=== PATIENT | female | born 1940 | race Caucasian/White ===

== ENCOUNTER → 2016-10-04 | Outpatient (CLI) | payer MEDICARE ==
[~2016-10-04] MED LIST: ALENDRONATE SOD70 M1 PO; ASPIRIN ADULT L81 M2 PO; AUGMENTIN 875 M1 TAB PO; CARAFATE1 G1 PO; CIPRO500 MG PO; DAYPRO600 M1 PO; DIFLUCAN100 MG PO; HYDROCODONE BIT1 T11 PO; LOPRESSOR25 MG PO; MIRALAX POWDER17 G1 PO; MOTRIN600 MG PO; MOTRIN800 MG PO; NEXIUM40 MG PO; NKHM; OMEPRAZOLE40 MG PO; OYSCO 500 + D 51 TAB PO; PREDNISONE10 MG PO; PRILOSEC20 M1 PO; PROTONIX40 MG PO; QUALITY CHOICE325 MG PO; VICODIN 5/500 505 MG PO; VITAMIN D400 IU PO; XARE20MG PO
== END | disposition home or self-care (01) ==
LOC: US 07:30
DX: M79.604 Pain in right leg (principal); M79.605 Pain in left leg

== ENCOUNTER → 2016-12-08 | Day surgery (SDC) | payer MEDICARE ==
[~2016-12-08] VITALS: Ht 152.4 cm; Wt 52.2 kg
--- NOTE | ~2016-12-08 | O ---
[place], [place] OPERATIVE NOTE NAME: JODY SCHREIBER UNIT #: [id number] ROOM: DOCTOR: RAFAEL ALEMAN MD BIRTHDATE: [birth year] DOS: HISTORY: I am not sure if the previously given history was recorded or not, I am repeating it. The patient was presented with dysphagia, dyspepsia, 76 years old. PAST MEDICAL HISTORY: Hypertension, hypercholesterolemia, gastritis, melanoma. PAST SURGICAL HISTORY: Hysterectomy, appendectomy, melanoma resection. ALLERGIES: IVP DYE. PROCEDURE: Today's procedure part of investigation is panendoscopy plus colon dilation, esophagus plus biopsy. PREMEDICATION: Versed and Diprivan. SCOPE: Olympus forward-viewing gastroscope Q10 video. REPORT: After putting the patient in the left lateral position and after application of lubricant to the scope, the scope was introduced. Thereafter, under direct visualization, I advanced through the length of esophagus without difficulty. Esophagus cervicothoracic distally carefully examined. Gastric pouch was entered evidence of gastritis seen. A 1.5 cm antral ulceration was biopsied and photographed. Duodenal bulb, second and third part within normal limit. Antrum was biopsied for H pylori balloon dilation of esophagus to size 20 was undertaken. Highest resistance at distal and upper esophagus was experienced. The patient tolerated the procedure well. IMPRESSION: Dysphagia, benign esophageal stricture, status post balloon dilation to size 20, gastritis, status post biopsy. 1. Small hiatal hernia 2. Antral ulceration PLAN AND DISCUSSION: Supportive management, soft diet, PPI therapy, omeprazole 20 mg bid. Starting Xarelto and aspirin from tomorrow. Follow up routinely with you in office, p.r.n. visit with us in GI Clinic. Thank you very much indeed for your kind referral. [place], [place] OPERATIVE NOTE NAME: JODY SCHREIBER UNIT #: [id number] ROOM: DOCTOR: RAFAEL ALEMAN MD BIRTHDATE: [birth year] RAFAEL ALEMAN MD CM:OPRECORD:OPERATIVE NOTE [id number] RAFAEL ALEMAN MD 12/08/16 4212 interface
[2016-12-08 12:31] VITALS: BP 115/41
[2016-12-08 12:46] VITALS: BP 135/53
[2016-12-08 13:01] VITALS: BP 132/64
== END | disposition home or self-care (01) ==
LOC: SDC 12-05 08:45
DX: K22.2 Esophageal obstruction (principal); K29.50 Unspecified chronic gastritis without bleeding; K25.9 Gastric ulcer, unspecified as acute or chronic, without hemorrhage or perforation; K44.9 Diaphragmatic hernia without obstruction or gangrene; I10 Essential (primary) hypertension; E78.00 Pure hypercholesterolemia, unspecified; Z90.710 Acquired absence of both cervix and uterus; Z90.49 Acquired absence of other specified parts of digestive tract; K21.9 Gastro-esophageal reflux disease without esophagitis; D64.9 Anemia, unspecified; Z80.9 Family history of malignant neoplasm, unspecified

== ENCOUNTER 2016-12-19 17:42 | Inpatient (IN) | payer MEDICARE ==
[~2016-12-19] VITALS: Ht 152.4 cm; Wt 69.1 kg
--- NOTE | ~2016-12-19 | PR ---
[place], [place] PROGRESS NOTE NAME: JODY SCHREIBER UNIT #: [id number] ROOM: 531 DOCTOR: LYNN DE LA CRUZ MD BIRTHDATE: [birth year] DOS: 12/23/2016 PULMONARY FOLLOWUP SUBJECTIVE: She has had a bronchoscopy done yesterday with significant reduction and improvement in the respiratory symptoms noted including cough. The patient denies symptoms of chest pain or any abdominal pain. Coughing has been currently noted mild at this time, nonproductive. Denies any wheezing. OBJECTIVE: VITAL SIGNS: For the patient, which have been recorded showed normal temperature, respiratory rate 20, heart rate 79, blood pressure 145/54. The pulse oxygen saturation on room air 97% saturation. HEENT: Examination shows no acute change. NECK: Supple. CARDIOVASCULAR: S1, S2 audible. LUNGS: Coarse, no wheeze, no crackles. ABDOMEN: Soft, nontender. LABORATORY DATA: BMP of the patient noted as essentially grossly normal. CBC: WBC count 12.3, hemoglobin 9.0, hematocrit 29.0, platelet count was normal. The culture of the bronchial washing showed normal jen. The Gram stain of the bronchial washing of the patient of yesterday noted with many white blood cells, moderate epithelial cells, moderate gram-negative bacilli, and ____ gram-positive cocci in pairs. IMPRESSION: 1. The patient who has been noted significant improvement noted in the respiratory status with acute exacerbation of bronchial asthma. 2. Resolving acute pneumonia for the patient clinically as well. PLAN OF TREATMENT: No changes in the plan of management at this time. Obtain a chest x-ray of the patient today to reassess the pneumonia. Continue use of bronchodilators. Continue other supportive therapy, plan of management and progress. Further treatment changes will be done based on the progression of the illness. [place], [place] PROGRESS NOTE NAME: JODY SCHREIBER [facility]: [id number] UNIT #: [id number] ROOM: 531 DOCTOR: LYNN DE LA CRUZ MD BIRTHDATE: [birth year] LYNN MACIAS MD CM:PNTRANS 1409 0037 LYNN WEST MD 12/24/16 0037 interface
--- NOTE | ~2016-12-19 | PR ---
[place], [place] PROGRESS NOTE NAME: JODY SCHREIBER UNIT #: [id number] ROOM: 531 DOCTOR: COLLEEN WEST MD,LYNN BIRTHDATE: [birth year] DOS: 12/24/2016 SUBJECTIVE: The patient has been noted comfortable at this time. She continues to show improvement in respiratory symptoms. The coughing has been resolving not completely improved ____ patient after the bronchoscopy. OBJECTIVE: VITAL SIGNS: For the patient which has been recorded shows the temperature of the patient noted as normal. The respiratory rate of the patient recorded as 20, heart rate 68, blood pressure 152/52-149/74. The pulse oxygen saturation noted on room air 96% saturation. HEENT: Examination shows head was atraumatic. Eyes nonicterus. NECK: Supple. CARDIOVASCULAR: S1, S2 audible. LUNGS: The patient was noted without any wheezing or crackles at this time. ABDOMEN: Soft, nontender. LABORATORY DATA: CBC: WBC count 12.8, hemoglobin 9.9, hematocrit 29.9, platelet count 214,000. The culture of the sputum for this patient was noted as normal jen isolation. IMPRESSION: The patient who has been currently noted with resolving acute exacerbation of bronchial asthma. The patient as well as acute pneumonia for this patient and tracheobronchitis progressively. PLAN OF TREATMENT: The patient could be considered discharge for this patient to the home setting with the patient whenever necessary. Chest x-ray yesterday shows hyperinflation of the lung with resolution of previous pulmonary infiltration. Outpatient followup suggested 2 weeks post-discharge. LYNN MACIAS MD CM:PNTRANS [id number] 20 LYNN WEST MD 12/24/162219 interface
--- NOTE | ~2016-12-19 | PROC NOTE ---
[place], [place] PROCEDURE NOTE NAME: JODY SCHREIBER UNIT #: [id number] ROOM: 531 DOCTOR: IOANA PARIKH BIRTHDATE: [birth year] DOS: MODIFIED BARIUM SWALLOW PRIMARY DIAGNOSIS: Chronic obstructive pulmonary disease with acute exacerbation and sepsis. She has a history of bronchitis, GERD, melanoma of the legs. The patient is currently on a regular diet. She was seen for a bedside evaluation, no changes to her diet were made. The patient is reporting globus and difficulties swallowing food and liquids both and consistently with constant cough and choke. She reports she cannot breathe and has had difficulty breathing. The patient reports she had a dilatation of the throat 2 weeks ago and before then, she was having difficulty coughing and choking and has continued to have this issue. She reports a history of 4 dilatations at the throat and when asked about an esophageal stricture, esophageal issues, she denied a history of those diagnoses. METHODS AND PROCEDURES: The patient was on a gurney. She was seated upright 90 degrees with a pillow and viewed in the lateral plane. The study was done in conjunction with Dr. Prince. The patient was able to follow commands and administered thin liquid via straw on cup, pudding mixed with barium paste and take a bite of a turkey sandwich mixed with barium paste on her own. ORAL PHASE: The patient presents with normal mastication and chewing as well as ability to form and propel a cohesive bolus of all consistencies with no oral residue. PHARYNGEAL PHASE: DIAMOND EXPERT judged laryngeal elevation to be slightly decreased, but it did not affect the swallow. She had no residue. She had adequate airway protection. There was no penetration or aspiration noted during this modified barium swallow. RECOMMENDATIONS AND IMPRESSION: The patient tolerates a regular diet. No diet recommendations are made as oral and pharyngeal phases are functional and without penetration aspiration or any pharyngeal residue or oral residue. Speech therapy services are not recommended at this time. Physician continues to report difficulty swallowing and globus and physician may wish to consider esophageal workup as sometimes the patient has issues in the esophagus and feel the globus in their pharynx. Thank you for this referral. [place], [place] PROCEDURE NOTE NAME: JODY SCHREIBER UNIT #: [id number] ROOM: 531 DOCTOR: IOANA PARIKH BIRTHDATE: [birth year] IOANA PARIKH CM:PROCNOTE:PROCEDURE NOTE [id number] IOANA PARIKH
--- NOTE | ~2016-12-19 | PR ---
[place], [place] PROGRESS NOTE NAME: JODY SCHREIBER UNIT #: [id number] ROOM: 531 DOCTOR: COLLEEN WEST MD,LYNN BIRTHDATE: [birth year] DOS: 12/22/2016 SUBJECTIVE: She is n.p.o. past midnight for bronchoscopy, still noted with persistent nonproductive cough. Denies symptoms of chest pain or any abdominal pain. The patient denies any symptoms of hemoptysis. OBJECTIVE: VITAL SIGNS: For the patient which has been recorded showed the temperature of the patient noted as normal, respiratory rate recorded at 20, heart rate 93, blood pressure 117/51. Pulse oxygen saturation noted on 3 liters cannula 95% saturation. HEENT: Examination shows no acute change. NECK: Supple. CARDIOVASCULAR: S1, S2 audible. LUNGS: The patient was noted without any crackles. Expiratory wheezing was present. ABDOMEN: Soft, nontender. LABORATORY DATA: BMP; BUN 14, creatinine was normal. CBC this morning, WBC count 16.3, hemoglobin 9.9, hematocrit 30.8, platelet count 252,000. IMPRESSION: 1. The patient with acute pneumonia with ongoing acute tracheobronchitis and exacerbation of bronchial asthma, noted quite severe. 2. Leukocytosis was also noted. PLAN OF TREATMENT: Proceed with bronchoscopy as planned. No changes in the treatment immediately will be necessary. The leukocytosis has been improving. Continue other supportive therapy, plan of management and care. Usual treatment of the therapies. LYNN MACIAS MD CM:PNTRANS 1111 [id number] LYNN WEST MD 12/22/16 1214 interface
--- NOTE | ~2016-12-19 | PROC NOTE ---
[place], [place] PROCEDURE NOTE NAME: JODY SCHREIBER UNIT #: [id number] ROOM: 531 DOCTOR: COLLEEN WEST MD,LYNN BIRTHDATE: [birth year] DOS: 12/22/2016 PREOPERATIVE DIAGNOSES: Persistent severe nonresolving cough, acute pneumonia, and leukocytosis. POSTOPERATIVE DIAGNOSES: Persistent severe nonresolving cough, acute pneumonia, and leukocytosis. PROCEDURE DESCRIPTION: Informed consent obtained. The patient brought to the OR and placed in supine position. Conscious sedation administered by the Anesthesia Department. After achieving appropriate sedation, airway introduced into the mouth. Bronchoscope advanced into the airway into laryngeal area. Epiglottis and vocal cords were seen. The vocal cords were moving symmetrically with movements. The bronchoscope advanced into the vocal cord and tracheal lumen. Tracheal lumen noted with moderate amount of thick mucus secretion with purulent secretion of mixture. All secretions suctioned out with the patient to the aurelia level. The right upper, right middle, right lower, left upper, lingular lower lobe bronchi were all reviewed. Thick impaction of the mucus plugs noted endobronchial tree bilaterally to moderate amount. The findings were noted much more predominant in the left and the right endobronchial tree. Bronchial washings sent for culture. The procedure well tolerated by the patient without any complications. Postoperative findings were discussed with the patient's daughter. No changes in the treatment at this time immediately will be necessary except reduction of the Solu-Medrol at this time to b.i.d. dosing would be considered. LYNN MACIAS MD CM:PROCNOTE:PROCEDURE NOTE 1114 1239 LYNN WEST MD
--- NOTE | ~2016-12-19 | CON ---
[place], [place] REPORT OF CONSULTATION NAME: JODY SCHREIBER [facility] #: [id number] UNIT #: [id number] ROOM: 531 DOCTOR: LYNN DE LA CRUZ MD BIRTHDATE: [birth year] DOS: 12/21/2016 PULMONARY CONSULTATION, EVALUATION AND MANAGEMENT The consultation was done for the patient for the assessment of the persistent cough with exacerbation of COPD. HISTORY OF PRESENT ILLNESS: This is a 76-year-old white female patient who has been brought to the [facility] and hospitalized on 12/19/2016. The patient had been treated previously in [facility]. The patient was discharged on oral medications. The patient came home and noted with worsening of the cough and other respiratory symptoms. She was admitted in [facility] for further medical management currently due to nonresolving respiratory symptoms. She does have symptoms of cough, which has been noted quite a bit, nonproductive at times. Denies symptoms of pain in the chest. Denies symptoms of hemoptysis. The patient denies symptoms of chest pain, but noted with symptoms of wheezing. The cough has been noted ____ the patient's inability to expectorate sputum. REVIEW OF SYSTEMS: CONSTITUTIONAL: Fatigue and tiredness noted without symptoms of fever or chills. EYES: Denies any burning, redness, or tenderness. EARS, NOSE, AND THROAT: Denies sore throat, hoarseness, otalgia, postnasal drainage, or epistaxis. CARDIOVASCULAR: Denies anginal pain, edema or pain of the lower extremities or palpitations. GASTROINTESTINAL: Denies dysphagia, nausea, vomiting, diarrhea, abdominal pain, hematemesis, melena, hematochezia. GENITOURINARY: Denies dysuria, suprapubic pain, hematuria. SKIN: No lesions or rashes. MUSCULOSKELETAL: No deformities or pain. CENTRAL NERVOUS SYSTEM: Denies dizziness, headache, diplopia, syncopal episodes, or seizures. Remaining systems were reviewed with the patient. They were noted all negative. PREVIOUS MEDICAL HISTORY: 1. Atrial fibrillation. 2. Gastroesophageal reflux. 3. Coronary artery disease. 4. Essential hypertension. 5. Uncomplicated moderate persistent bronchial asthma, known to me with the previous examination in the office. She was seen in the office previously in 08/2016. SOCIAL HISTORY: She was noted nonsmoker, lives at home. She has worked in the [employer] for 25 years. She denies any history of alcohol or any illicit drugs. SURGICAL HISTORY: 1. Complete hysterectomy at the age of [age] years old. [place], [place] REPORT OF CONSULTATION NAME: JODY SCHREIBER UNIT #: [id number] ROOM: 531 DOCTOR: COLLEEN WEST MD,LYNN BIRTHDATE: [birth year] 2. Bladder neck suspension. 3. D and C. 4. Appendectomy. FAMILY HISTORY: Father at 64 due to complication of cancer of the head and neck. The mother at age of 6464 years old from complication related to COPD. CURRENT ADMINISTERED MEDICATIONS: The patient noted use of vitamin B12, Tessalon Perles, Lovenox for DVT prophylaxis, IV Solu-Medrol 40 mg q.8 hours, DuoNeb, IV Rocephin and Zithromax, and other p.r.n. medications administration. DRUG ALLERGY HISTORY: NOTED ALLERGY TO IVP DYE. PHYSICAL EXAMINATION: GENERAL: A 76-year-old female who has been noted currently awake and alert without any acute distress at this time, resting comfortably on the bed, noted nonproductive cough. Height of 5 feet, weight of 152 pounds. BMI 29. VITAL SIGNS: For this patient which were recorded show the temperature was noted as 102.2 degrees Fahrenheit to normal temperature later on, respiratory rate of 14-22, heart rate 96-105, blood pressure 125/59-132/68. Pulse oxygen saturation of the patient was noted as 94% on 2 L nasal cannula. HEENT: Examination shows head was atraumatic. Eyes: No icterus. NECK: Supple. Oral mucosa moist. CARDIOVASCULAR: S1, S2 audible. LUNGS: The patient was noted without any wheezing or crackles at this time. Breaths are noted mildly decreased bilaterally. ABDOMEN: Soft, nontender. LABORATORY DATA: CBC of the patient on 12/20/2016 showed hemoglobin of 10.9, hematocrit 34.1, platelet count was normal, and WBC count was normal. The PT, PTT on 12/20/2016 was normal. CK-MB, troponin of patient on admission on noted all normal. Lactic acid on 12/19/2016 on admission was normal. Blood culture from 12/19/2016 showed no bacterial growth. Urine culture showed no bacterial growth. CMP for this patient yesterday was noted with glucose 132, normal BUN and creatinine, and other electrolytes grossly normal. Chest x-ray of the patient that was done on current admission on 12/19/2016; the patient was noted without any acute pulmonary infiltration or other abnormalities. CT scan of the chest for the patient was done in the Emergency Room on 12/19/2016, was noted with 5 mm calcified granuloma of the left upper lung with a small 2-3 mm subpleural pulmonary nodule noted in the right middle lobe. IMPRESSION: 1. The patient has been currently noted with ongoing acute exacerbation of bronchial asthma with acute tracheobronchitis, suspected mucus impaction and not improved at this time with the previous recent hospitalization with recurrence of the symptoms. 2. Incidental finding of a 2-3 mm granuloma in subpleural location, right middle lobe, significance unknown. 3. Isolated granuloma was also noted in the left lung as well. 4. History of essential hypertension, coronary artery disease, and atrial [place], [place] REPORT OF CONSULTATION NAME: JODY SCHREIBER UNIT #: [id number] ROOM: 531 DOCTOR: LYNN DE LA CRUZ MD BIRTHDATE: [birth year] fibrillation. PLAN OF TREATMENT: The patient will benefit from therapeutic bronchoscopy to help resolve the current symptoms and also to accurately assess ____ for bronchitis that might require any modification of the treatment. Continue current dose of steroids, bronchodilators, and other plan as previously. Usual care. Risk and benefits of procedure have been discussed with the patient, and she agreed for the procedure. It was scheduled to be done tomorrow morning. N.p.o. past midnight status will be achieved from midnight tonight. Thanks for allowing me to participate in the care of this patient. LYNN MACIAS MD CM:CONSTR:REPORT OF CONSULTATION 1305 12/21/16 7100 interface
[2016-12-19 17:56] VITALS: BP 162/50
[2016-12-19 18:00] VITALS: BP 162/53
[2016-12-19] MEDS ORDERED: LEVOFLOXACIN500 MG PO (18:01)
[2016-12-19 18:44] LABS: BASO # 0.1 10*3/uL (0.0-0.1); BASO % 0.5 % (0.0-1.0); EOS # 0.3 10*3/uL (0.0-0.4); EOS % 3.5 % (1.0-4.0); HEMATOCRIT 35.4 % (37.0-47.0); HEMOGLOBIN 11.5 g/dl (12.0-16.0); LYMPH # 1.5 10*3/uL (1.3-4.4); LYMPH % 15.9 % (27.0-41.0); MEAN CELL VOLUME 87.4 fl (81.0-99.0); MEAN CORPUSCULAR HGB 28.4 pg (27.0-31.0); MEAN CORPUSCULAR HGB CONC 32.5 g/dl (33.0-37.0); MEAN PLATELET VOLUME 9.2 fl (9.6-12.3); MONO # 1.2 10*3/uL (0.1-1.0); MONO % 12.3 % (3.0-9.0); NEUT # 6.4 10*3/uL (2.3-7.9); NEUT % 67.5 % (47.0-73.0); PLATELET COUNT AUTOMATED 261 10*3/uL (130-400); RED BLOOD COUNT 4.05 10*6/uL (4.10-5.10); RED CELL DISTRI WIDTH 14.4 % (0-14.5); WHITE BLOOD COUNT 9.5 10*3/uL (4.8-10.8)
[2016-12-19 19:01] LABS: ALBUMIN 3.7 gm/dl (3.1-4.5); ALKALINE PHOSPHATASE 88 U/L (45-117); BILIRUBIN, TOTAL 0.6 mg/dl (0.2-1.0); BUN 11 mg/dl (7-24); CARBON DIOXIDE 23 mmol/L (21-32); CHLORIDE 103 mmol/L (98-107); EST GLOM FILT AFRICAN AMERICAN > 60 ml/min; GLUCOSE 96 mg/dL (65-99); MAGNESIUM 2.3 mg/dL (1.5-2.1); POTASSIUM 3.9 mmol/L (3.5-5.1); SGOT/AST 18 IU/L (3-35); SGPT/ALT 14 U/L (12-78); SODIUM 139 mmol/L (136-145); TOTAL PROTEIN 7.5 gm/dL (6.4-8.2)
[2016-12-19 19:07] LABS: INTERNATIONAL NORM RATIO 1.1 (2.0-3.5); PROTHROMBIN TIME 11.8 SECONDS (9.0-12.4)
[2016-12-19 19:09] LABS: TROPONIN I < 0.015 ng/ml (<0.045)
[2016-12-19 20:00] VITALS: BP 125/59
[2016-12-19 21:18] VITALS: BP 125/59
[2016-12-20] VITALS (9 sets, daily range): BP systolic 118–154; BP diastolic 49–84
[2016-12-20 00:54] LABS: BILIRUBIN 1+ (NEGATIVE); BLOOD 2+ (NEGATIVE); CLARITY CLEAR (CLEAR); COLOR YELLOW (YELLOW); GLUCOSE NEGATIVE (NEGATIVE); KETONE 3+ (NEGATIVE); LEUKO ESTERASE NEGATIVE (NEGATIVE); NITRITE NEGATIVE (NEGATIVE); PH 5.5 (5.0-9.0); PROTEIN TRACE (NEGATIVE); SPECIFIC GRAVITY 1.025 (1.005-1.030); UROBILINOGEN 0.2 E.U./dl (0.2-1.0)
[2016-12-20 01:23] LABS: BACTERIA TRACE; URINE REFLEX COMMENT YES (NO)
[2016-12-20 06:13] LABS: BASO % 0.1 % (0.0-1.0); EOS % 0.1 % (1.0-4.0); HEMATOCRIT 34.1 % (37.0-47.0); HEMOGLOBIN 10.9 g/dl (12.0-16.0); LYMPH # 1.2 10*3/uL (1.3-4.4); LYMPH % 17.5 % (27.0-41.0); MEAN CELL VOLUME 88.8 fl (81.0-99.0); MEAN CORPUSCULAR HGB 28.4 pg (27.0-31.0); MEAN PLATELET VOLUME 9.3 fl (9.6-12.3); MONO # 0.1 10*3/uL (0.1-1.0); MONO % 0.7 % (3.0-9.0); NEUT # 5.5 10*3/uL (2.3-7.9); PLATELET COUNT AUTOMATED 274 10*3/uL (130-400); RED BLOOD COUNT 3.84 10*6/uL (4.10-5.10); RED CELL DISTRI WIDTH 14.3 % (0-14.5); WHITE BLOOD COUNT 6.8 10*3/uL (4.8-10.8)
[2016-12-20 06:33] LABS: HEMOGLOBIN A1c 5.5 % (4.8-5.6); INTERNATIONAL NORM RATIO 1.1 (2.0-3.5); PROTHROMBIN TIME 11.4 SECONDS (9.0-12.4)
[2016-12-20 06:48] LABS: ALBUMIN 3.3 gm/dl (3.1-4.5); ALKALINE PHOSPHATASE 78 U/L (45-117); BILIRUBIN, TOTAL 0.5 mg/dl (0.2-1.0); BUN 14 mg/dl (7-24); CARBON DIOXIDE 26 mmol/L (21-32); CHLORIDE 105 mmol/L (98-107); CHOLESTEROL 160 mg/dL (<200); EST GLOM FILT AFRICAN AMERICAN > 60 ml/min; GLUCOSE 132 mg/dL (65-99); HDL CHOLESTEROL 66 mg/dl (40-60); LDL CHOLESTEROL 76 mg/dL (9-159); MAGNESIUM 2.3 mg/dL (1.5-2.1); PHOSPHOROUS 3.5 mg/dL (2.5-4.9); POTASSIUM 4.1 mmol/L (3.5-5.1); SGOT/AST 12 IU/L (3-35); SGPT/ALT 12 U/L (12-78); SODIUM 140 mmol/L (136-145); TOTAL PROTEIN 6.8 gm/dL (6.4-8.2); TRIGLYCERIDES 92 mg/dl (<150); VLDL CHOLESTEROL 18 mg/dL (6-40)
[2016-12-20 06:52] LABS: THYROID STIM HORMONE (HS) 0.394 uIU/ml (0.358-4.75)
[2016-12-20 07:08] LABS: VITAMIN D, 25-HYDROXY 30.1 ng/mL (30-100)
[2016-12-20 07:11] LABS: FOLIC ACID > 24.00 ng/mL (>5.38)
[2016-12-21] VITALS: BP 132/68
[2016-12-21 04:00] VITALS: BP 129/61
[2016-12-21 08:00] VITALS: BP 125/58
[2016-12-21 12:00] VITALS: BP 125/58
[2016-12-21 16:00] VITALS: BP 123/43
[2016-12-21 20:00] VITALS: BP 120/69
[2016-12-22] VITALS (8 sets, daily range): BP systolic 90–156; BP diastolic 39–128
[2016-12-22 07:03] LABS: BASO % 0.1 % (0.0-1.0); HEMATOCRIT 30.8 % (37.0-47.0); HEMOGLOBIN 9.9 g/dl (12.0-16.0); IG # 0.2 10*3/uL (0.0-0.1); LYMPH # 1.1 10*3/uL (1.3-4.4); LYMPH % 6.8 % (27.0-41.0); MEAN CELL VOLUME 90.1 fl (81.0-99.0); MEAN CORPUSCULAR HGB 28.9 pg (27.0-31.0); MEAN CORPUSCULAR HGB CONC 32.1 g/dl (33.0-37.0); MEAN PLATELET VOLUME 9.8 fl (9.6-12.3); MONO # 0.4 10*3/uL (0.1-1.0); MONO % 2.4 % (3.0-9.0); NEUT # 14.6 10*3/uL (2.3-7.9); NEUT % 89.5 % (47.0-73.0); PLATELET COUNT AUTOMATED 252 10*3/uL (130-400); RED BLOOD COUNT 3.42 10*6/uL (4.10-5.10); RED CELL DISTRI WIDTH 14.6 % (0-14.5); WHITE BLOOD COUNT 16.3 10*3/uL (4.8-10.8)
[2016-12-22 07:08] LABS: BUN 14 mg/dl (7-24); CARBON DIOXIDE 24 mmol/L (21-32); CHLORIDE 109 mmol/L (98-107); EST GLOM FILT AFRICAN AMERICAN > 60 ml/min; GLUCOSE 138 mg/dL (65-99); POTASSIUM 3.8 mmol/L (3.5-5.1); SODIUM 143 mmol/L (136-145)
[2016-12-23] VITALS: BP 139/48
[2016-12-23 04:00] VITALS: BP 128/74
[2016-12-23 07:17] LABS: BASO % 0.1 % (0.0-1.0); IG # 0.2 10*3/uL (0.0-0.1); LYMPH # 1.4 10*3/uL (1.3-4.4); MEAN CELL VOLUME 89.5 fl (81.0-99.0); MEAN CORPUSCULAR HGB 27.8 pg (27.0-31.0); MEAN PLATELET VOLUME 10.3 fl (9.6-12.3); MONO # 0.6 10*3/uL (0.1-1.0); NEUT # 10.2 10*3/uL (2.3-7.9); NEUT % 82.7 % (47.0-73.0); PLATELET COUNT AUTOMATED 192 10*3/uL (130-400); RED BLOOD COUNT 3.24 10*6/uL (4.10-5.10); RED CELL DISTRI WIDTH 14.6 % (0-14.5); WHITE BLOOD COUNT 12.3 10*3/uL (4.8-10.8)
[2016-12-23 07:24] LABS: BUN 12 mg/dl (7-24); CARBON DIOXIDE 23 mmol/L (21-32); CHLORIDE 110 mmol/L (98-107); EST GLOM FILT AFRICAN AMERICAN > 60 ml/min; GLUCOSE 113 mg/dL (65-99); POTASSIUM 3.8 mmol/L (3.5-5.1); SODIUM 141 mmol/L (136-145)
[2016-12-23 08:00] VITALS: BP 145/62
[2016-12-23 11:46] VITALS: BP 145/54
[2016-12-23 15:05] LABS: ACID FAST SPEC PROCESSING Concentration (.)
[2016-12-23 16:00] VITALS: BP 154/53
[2016-12-23 20:00] VITALS: BP 152/52
[2016-12-24] VITALS: BP 149/74
[2016-12-24 06:00] LABS: BASO % 0.1 % (0.0-1.0); HEMATOCRIT 29.9 % (37.0-47.0); HEMOGLOBIN 9.9 g/dl (12.0-16.0); IG # 0.3 10*3/uL (0.0-0.1); LYMPH # 1.8 10*3/uL (1.3-4.4); LYMPH % 14.1 % (27.0-41.0); MEAN CELL VOLUME 86.7 fl (81.0-99.0); MEAN CORPUSCULAR HGB 28.7 pg (27.0-31.0); MEAN CORPUSCULAR HGB CONC 33.1 g/dl (33.0-37.0); MEAN PLATELET VOLUME 10.1 fl (9.6-12.3); MONO # 0.8 10*3/uL (0.1-1.0); MONO % 6.2 % (3.0-9.0); NEUT # 9.9 10*3/uL (2.3-7.9); NEUT % 77.5 % (47.0-73.0); PLATELET COUNT AUTOMATED 214 10*3/uL (130-400); RED BLOOD COUNT 3.45 10*6/uL (4.10-5.10); RED CELL DISTRI WIDTH 14.3 % (0-14.5); WHITE BLOOD COUNT 12.8 10*3/uL (4.8-10.8)
[2016-12-24 08:00] VITALS: BP 152/52
[2016-12-24] MEDS ORDERED: MUCINEX ER600 MG PO (10:02)
[2016-12-24] MEDS ORDERED: B12,B-12,B 12500 MC1 PO (10:02)
[2016-12-24] MEDS ORDERED: ROBITUSSIN DM 110 ML PO (11:17)
[2016-12-24] MEDS ORDERED: AVPAK AZITHROM250 MG PO (11:18)
[2016-12-24] MEDS ORDERED: PREDNISONE10 MG PO (12:11)
== END 2016-12-24 13:07 | disposition home or self-care (01) | DRG 871 ==
LOC: ED 17:42 → EDHOLD 20:07 → 5E 20:07
PROVIDERS: Emergency Medicine; Family Medicine; Hospitalist; Internal Medicine Critical Care Medicine; Registered Nurse; Student in an Organized Health Care Education/Training Program
PROC: 0BC68ZZ Extirpation of Matter from Right Lower Lobe Bronchus, Via Natural or Artificial Opening Endoscopic (ICD-10-PCS; principal; 2016-12-22)
PROC: BD1BYZZ Fluoroscopy of Mouth/Oropharynx using Other Contrast (ICD-10-PCS; principal; 2016-12-22)
PROC: 0BC98ZZ Extirpation of Matter from Lingula Bronchus, Via Natural or Artificial Opening Endoscopic (ICD-10-PCS; principal; 2016-12-22)
PROC: 0BC48ZZ Extirpation of Matter from Right Upper Lobe Bronchus, Via Natural or Artificial Opening Endoscopic (ICD-10-PCS; principal; 2016-12-22)
PROC: 0BC88ZZ Extirpation of Matter from Left Upper Lobe Bronchus, Via Natural or Artificial Opening Endoscopic (ICD-10-PCS; principal; 2016-12-22)
PROC: 0BC58ZZ Extirpation of Matter from Right Middle Lobe Bronchus, Via Natural or Artificial Opening Endoscopic (ICD-10-PCS; principal; 2016-12-22)
DX: A41.9 Sepsis, unspecified organism (principal); J18.9 Pneumonia, unspecified organism; J96.00 Acute respiratory failure, unspecified whether with hypoxia or hypercapnia; J44.0 Chronic obstructive pulmonary disease with (acute) lower respiratory infection; T17.890A Other foreign object in other parts of respiratory tract causing asphyxiation, initial encounter; J45.901 Unspecified asthma with (acute) exacerbation; I48.1 Persistent atrial fibrillation; J44.1 Chronic obstructive pulmonary disease with (acute) exacerbation; D64.9 Anemia, unspecified; E83.41 Hypermagnesemia; X58.XXXA Exposure to other specified factors, initial encounter; K21.9 Gastro-esophageal reflux disease without esophagitis; I25.10 Atherosclerotic heart disease of native coronary artery without angina pectoris; R91.1 Solitary pulmonary nodule; M81.0 Age-related osteoporosis without current pathological fracture; Z85.828 Personal history of other malignant neoplasm of skin; Z87.01 Personal history of pneumonia (recurrent); Z90.49 Acquired absence of other specified parts of digestive tract; Z90.710 Acquired absence of both cervix and uterus; Z80.0 Family history of malignant neoplasm of digestive organs; Z83.6 Family history of other diseases of the respiratory system; Z91.041 Radiographic dye allergy status; Z79.82 Long term (current) use of aspirin; Z79.899 Other long term (current) drug therapy; Y93.89 Activity, other specified; Y92.89 Other specified places as the place of occurrence of the external cause; Y99.8 Other external cause status

== ENCOUNTER 2016-12-28 13:03 | Inpatient (IN) | payer MEDICARE ==
[~2016-12-28] VITALS: Ht 152.4 cm; Wt 66.3 kg
--- NOTE | ~2016-12-28 | PR ---
[place], [place] PROGRESS NOTE NAME: JODY SCHREBIER UNIT #: [id number] ROOM: 503 DOCTOR: LYNN DE LA CRUZ MD BIRTHDATE: [birth year] DOS: 12/31/2016 PULMONARY FOLLOWUP SUBJECTIVE: She has been noted quite comfortable at this time. Continues to show reduction in improvement in general weakness and fatigue. Denies symptoms of chest pain or any abdominal pain. The patient has not been noted any significant cough. OBJECTIVE: VITAL SIGNS: Showed normal temperature, respirations 18, heart rate of 86, blood pressure 98/70-131/62. Pulse oxygen saturation of the patient was noted as 99% saturation on 2 L nasal cannula. HEENT: Examination shows no acute change. NECK: Supple. CARDIOVASCULAR: S1, S2 audible. LUNGS: Without wheeze or crackles. ABDOMEN: Soft, nontender. LABORATORY DATA: CBC: WBC count 16.6, hemoglobin 8.8, hematocrit 27.8, platelet count was normal. CMP of 12/31/2016, normal BUN and creatinine. Blood culture showed no bacterial growth on the . IMPRESSION: 1. The patient with continued improvement in acute exacerbation of chronic obstructive pulmonary disease, leukocytosis, acute bronchitis. 2. Debility and fatigue. 3. Electrolyte imbalance, which is already being corrected by the primary care attending. PLAN OF TREATMENT: Reduce the Solu-Medrol dose to 20 mg daily. Continuation of other previous therapy, plan of management. After 3 days, the Solu-Medrol will be completely discontinued. Other supportive therapy, plan of management. Continue physical therapy and other medical management, plan of care. [place], [place] PROGRESS NOTE NAME: JODY SCHREIBER UNIT #: [id number] ROOM: 503 DOCTOR: LYNN DE LA CRUZ MD BIRTHDATE: [birth year] LYNN MACIAS MD CM:PNTRANS 1120 005 LYNN WEST MD 01/01/17 0051 interface
--- NOTE | ~2016-12-28 | PR ---
[place], [place] PROGRESS NOTE NAME: JODY SCHREIBER UNIT #: [id number] ROOM: 503 DOCTOR: LYNN DE LA CRUZ MD BIRTHDATE: [birth year] DOS: 12/30/2016 SUBJECTIVE: She has been comfortably resting this morning on the chair noted with improvement in the fatigue and tiredness. She has been ordered physical therapy yesterday. The coughing for this patient has been noted mild at this time. There were no symptoms of chest pain or any abdominal pain. OBJECTIVE: VITAL SIGNS: Normal temperature, respiratory rate 16, heart rate 81, blood pressure 126/48. The pulse oxygen saturation for the patient noted on 2 liters nasal cannula 97% saturation. HEENT: Examination shows no acute change. NECK: Supple. CARDIOVASCULAR: S1, S2 audible. LUNGS: Noted without any wheeze or crackles at this time. ABDOMEN: Soft, nontender. LABORATORY DATA: CBC of the patient on 12/30/2016, WBC count 19.5, hemoglobin 8.3, hematocrit 25.9, and platelet count 211,000. CMP of the patient this morning noted normal BUN and creatinine. Potassium noted 3.0 and phosphorus noted 1.7. Urine culture of the patient shows light growth of gram-positive cocci. Blood culture for patient on 12/28/2016 showed no bacterial growth. IMPRESSION: 1. The patient with ____ general weakness, fatigue, and debility with resolving acute exacerbation of chronic obstructive pulmonary disease as well. 2. Leukocytosis, combination of factors including acute infection and the steroids as well. 3. Hypokalemia and hypophosphatemia resulting in the generalized weakness as well. PLAN OF TREATMENT: Continue current dose of Solu-Medrol and bronchodilators. Discontinue the Zosyn and vancomycin since there were no cultures supporting that use. Continuation of the bronchodilators. Physical therapy and occupation therapy, [facility] facility assessment and the transfer would be recommended for the management of the current ongoing other medical problems as well. Usual care. Supportive therapy, plan of management and treatment. [place], [place] PROGRESS NOTE NAME: JODY SCHREIBER UNIT #: [id number] ROOM: 503 DOCTOR: LYNN DE LA CRUZ MD BIRTHDATE: [birth year] LYNN MACIAS MD CM:LEONARD 1424 [id number] LYNN WEST MD 12/31/16 0630 interface
--- NOTE | ~2016-12-28 | CON ---
[place], [place] REPORT OF CONSULTATION NAME: JODY SCHREIBER [facility] #: [id number] UNIT #: [id number] ROOM: 503 DOCTOR: LYNN DE LA CRUZ MD BIRTHDATE: [birth year] DOS: 12/28/2016 PULMONARY CONSULTATION, EVALUATION AND MANAGEMENT REASON FOR CONSULTATION: To assess the patient for symptoms of shortness of breath and generalized weakness. CONSULTATION REQUESTED BY: Hospitalist services. HISTORY OF PRESENT ILLNESS: A 76-year-old white female who has been recently admitted to the hospital and treated during the last hospitalization visit for the medical management of acute pneumonia, tracheobronchitis and exacerbation of bronchial asthma. The patient has been doing very well. The chest x-ray of the patient shows complete resolution of the previously noted infiltration in the lungs. She was discharged home on antibiotics and the bronchodilators and other medical treatment ordered by the attending physician at that time. She has been brought to the hospital. The patient has been noted with generalized weakness and fatigue. She has been noted with difficulty ambulation because of fatigue. She was also noted with decreased appetite. The patient denies having any worsening of the cough as previously noted, cough has been noted very minimal with small amount of sputum expectoration. Denies symptoms of wheezing. Denies symptoms of chest pain. The patient denies symptoms of hemoptysis. The patient was complaining of nonspecific pain in the left side of the chest intermittently as well. REVIEW OF SYSTEMS: CONSTITUTIONAL: General weakness and fatigue were noted without any fever or chills reported. She was also noted with decrease in appetite. EYES: Denies any burning, redness, or tenderness. EARS, NOSE, THROAT: No sore throat, hoarseness, otalgia, postnasal drainage. CARDIOVASCULAR: Denies anginal pain, edema or pain of the lower extremities. GASTROINTESTINAL: Denies dysphagia, nausea, vomiting, diarrhea, abdominal pain, hematemesis, melena, or hematochezia. MUSCULOSKELETAL: The patient denies any acute joint pain, redness or tenderness of any joints. SKIN: Denies lesions or rashes. CENTRAL NERVOUS SYSTEM: Generalized weakness and fatigue were noted without any focal neurologic deficit. The remaining systems were reviewed with this patient and they were noted all negative. PAST MEDICAL HISTORY: 1. Noted for this patient with recent hospitalization and discharge last Sunday for the exacerbation of bronchial asthma with acute pneumonia. No bacterial growth isolation noted with bronchoscopy that was done on 12/22/2016. 2. History of uncomplicated moderate persistent bronchial asthma. 3. History of coronary artery disease. 4. Atrial fibrillation. 5. Gastroesophageal reflux. 6. Coronary artery disease. [place], [place] REPORT OF CONSULTATION NAME: JODY SCHREIBER UNIT #: [id number] ROOM: [facility] DOCTOR: LYNN DE LA CRUZ MD BIRTHDATE: [birth year] 7. Essential hypertension. PAST SURGICAL HISTORY: 1. Complete hysterectomy at age [age] years old. 2. Bladder neck suspension. 3. D and C. 4. Appendectomy. 5. Fiberoptic bronchoscopy that was done on 12/22/2016. SOCIAL HISTORY: The patient lives at home. Denies any history of alcohol use or illicit drug use, noted nonsmoker lifetime. FAMILY HISTORY: Father at age 6464 years old from cancer of the head and neck. Mother at 64 years old with complication related to COPD. MEDICATIONS: Current administered medications noted use of Fosamax, potassium chloride, vitamin B12, Xarelto, aspirin, calcium with vitamin D, vitamin D, ferrous sulfate, omeprazole, IV Solu-Medrol 60 mg q.8 hours, Mucinex 600 mg p.o. b.i.d., DuoNeb, Levaquin, vancomycin and IV Zosyn. DRUG ALLERGIES: Allergies to IVP DYE causing shortness of breath. PHYSICAL EXAMINATION: GENERAL: A 76-year-old white female, currently lying in the bed without any acute distress, appeared to be somewhat fatigued. Height of the patient noted as 5 feet, weight of 146 pounds, BMI 28.5. VITAL SIGNS: Normal temperature, respiratory rate 18, heart rate of 79, blood pressure 131/41 to 111/67. Her pulse oxygen saturation noted on room air as 97% saturation. HEENT: Shows no acute change. NECK: Supple. CARDIOVASCULAR: S1, S2 audible. LUNGS: The patient was noted without any wheezing or crackles. Breaths are noted [id number] diminished bilaterally. ABDOMEN: Soft, flat, nontender, bowel sounds present. EXTREMITIES: Show no edema, clubbing, cyanosis. CENTRAL NERVOUS SYSTEM: Noted without any gross focal deficit. Cranial nerves 2-12 are intact. MUSCULOSKELETAL: No deformities. SKIN: Showed no lesions or rashes. LABORATORY DATA: Lactic acid yesterday on admission was 1.7. CMP on 12/28/2016 shows glucose of 134, BUN and creatinine was normal, and potassium 3.0. CBC: WBC count 24.1, hemoglobin 11.3, hematocrit of 34.5, platelet count of 302,000. CK-MB and troponin, 3 sets yesterday and this morning, were noted normal. Urinalysis: Noted 3+ bacteria on admission on 12/28/2016. CBC this morning, WBC count 20.4, hemoglobin 9.5, hematocrit 29.1, platelet count 265,000. CMP: BUN and creatinine was normal. Potassium improved to 3.2. Phosphorous was noted 2.1, magnesium 2.3. Chest x-ray that was done, 1-view, for this patient just in the Emergency Room shows area of a small linear atelectasis noted in the [place], [place] REPORT OF CONSULTATION NAME: JODY SCHREIBER UNIT #: [id number] ROOM: [facility] DOCTOR: COLLEEN WEST MD,[facility] BIRTHDATE: [birth year] left lower lobe. IMPRESSION: 1. The patient was admitted to the hospital with general weakness, fatigue and with some shortness breath and cough with a clear sputum expectoration at this time. Basilar area of atelectasis noted in the left lower lobe. 2. Abnormal urinalysis. The patient possibly has urinary tract infection would be considered. 3. Resolving chronic obstructive pulmonary disease exacerbation as well. 4. General weakness related to the current acute infectious process most likely originating from the urine would be considered. PLAN OF TREATMENT: The patient has been started on broad-spectrum intravenous antibiotics until the infection will be assessed with the blood cultures. Urine culture needs to be done if it is not taken. Start the patient on lower dose of Solu-Medrol as the patient does not have any findings of acute exacerbation of COPD at this time. She will be changed to Solu-Medrol 40 mg daily from 60 mg q.8 hours. Collect any sputum for Gram stain and culture, which will be ordered for this patient as well. Monitor results of urine cultures and blood cultures. Further treatment changes will be done based on progression of the illness. Physical therapy assessment might need to be done. Thanks for allowing me to participate in the care of this patient. LYNN MACIAS MD CM:CONSTR:REPORT OF CONSULTATION 1142 12/29/16 1731 interface
--- NOTE | ~2016-12-28 | PR ---
[place], [place] PROGRESS NOTE NAME: JODY SCHREIBER UNIT #: [id number] ROOM: 503 DOCTOR: COLLEEN WEST MD,LYNN BIRTHDATE: [birth year] DOS: 01/01/2017 SUBJECTIVE: She has been noted with generalized weakness and fatigue. There were no symptoms of cough. Shortness of breath was noted, mild. There was no chest pain. OBJECTIVE: VITAL SIGNS: For the patient which has been recorded shows a normal temperature, respiratory rate recorded at 18, heart rate 74, blood pressure 135/47 to 115/42. Intake for the patient ____, negative 1250 mL. Pulse oxygen 2 liters nasal cannula 99% saturation. HEENT: Examination shows no acute change. NECK: Supple. CARDIOVASCULAR: S1, S2 audible. LUNGS: Noted without any wheezing or crackles at the present time. ABDOMEN: Soft, nontender. LABORATORY DATA: CBC of this morning, WBC count 17.4, hemoglobin 9.5, hematocrit 29.5, platelet count 231,000. CMP of the patient of 01/01/2017 shows normal BUN and creatinine. IMPRESSION: 1. The patient with general weakness and fatigue with electrolyte imbalance, which has been improving. 2. Resolving acute exacerbation of chronic obstructive pulmonary disease. 3. Acute leukocytosis, most likely drug induced by the steroids. PLAN OF TREATMENT: No changes from the pulmonary standpoint. Continue the patient on current therapy as previously ordered. Usual care ____. Supportive therapy and plan of management. The patient has been currently considered for transfer to the residential facility upon authorization from the insurance. LYNN MACIAS MD CM:PNTRANS [id number] LYNN WEST MD 01/01/17 1543 interface
[~2016-12-28 13:03] MED LIST changes: +AVPAK AZITHROM250 MG PO; +B12,B-12,B 12500 MC1 PO; +LEVOFLOXACIN500 MG PO; +MUCINEX ER600 MG PO; +ROBITUSSIN DM 110 ML PO
[2016-12-28 13:15] VITALS: BP 151/38
[2016-12-28 14:02] LABS: HEMATOCRIT 34.5 % (37.0-47.0); HEMOGLOBIN 11.3 g/dl (12.0-16.0); MEAN CORPUSCULAR HGB 28.2 pg (27.0-31.0); MEAN CORPUSCULAR HGB CONC 32.8 g/dl (33.0-37.0); MEAN PLATELET VOLUME 9.4 fl (9.6-12.3); PLATELET COUNT AUTOMATED 302 10*3/uL (130-400); RED BLOOD COUNT 4.01 10*6/uL (4.10-5.10); RED CELL DISTRI WIDTH 14.8 % (0-14.5); WHITE BLOOD COUNT 24.1 10*3/uL (4.8-10.8)
[2016-12-28 14:21] LABS: ALBUMIN 3.4 gm/dl (3.1-4.5); ALKALINE PHOSPHATASE 72 U/L (45-117); BUN 17 mg/dl (7-24); CARBON DIOXIDE 27 mmol/L (21-32); CHLORIDE 101 mmol/L (98-107); EST GLOM FILT AFRICAN AMERICAN > 60 ml/min; GLUCOSE 134 mg/dL (65-99); SGOT/AST 13 IU/L (3-35); SGPT/ALT 15 U/L (12-78); SODIUM 140 mmol/L (136-145); TOTAL PROTEIN 6.6 gm/dL (6.4-8.2)
[2016-12-28 14:26] LABS: LYMPHOCYTE # 0.7 10*3/uL (1.3-4.4); MONOCYTE # 0.7 10*3/uL (0.1-1.0); NEUTROPHIL # 22.7 10*3/uL (2.3-7.9); NEUTROPHILS 94 % (47-73); PLATELET SUFFICIENCY NORMAL (NORMAL); POLYCHROMASIA SLIGHT; TOTAL CELLS COUNTED 100 #CELLS
[2016-12-28 15:04] VITALS: BP 147/54
[2016-12-28 16:00] VITALS: BP 129/42
[2016-12-28 20:00] VITALS: BP 111/67
[2016-12-29] VITALS: BP 100/50
[2016-12-29 02:30] LABS: BILIRUBIN NEGATIVE (NEGATIVE); BLOOD TRACE-LYSED (NEGATIVE); CLARITY SL CLOUDY (CLEAR); COLOR YELLOW (YELLOW); GLUCOSE NEGATIVE (NEGATIVE); KETONE 1+ (NEGATIVE); LEUKO ESTERASE NEGATIVE (NEGATIVE); NITRITE NEGATIVE (NEGATIVE); PH 6.5 (5.0-9.0); PROTEIN NEGATIVE (NEGATIVE); SPECIFIC GRAVITY 1.015 (1.005-1.030); UROBILINOGEN 0.2 E.U./dl (0.2-1.0)
[2016-12-29 02:39] LABS: BACTERIA 3+; URINE REFLEX COMMENT YES (NO)
[2016-12-29 07:01] LABS: BASO % 0.1 % (0.0-1.0); HEMATOCRIT 29.1 % (37.0-47.0); HEMOGLOBIN 9.5 g/dl (12.0-16.0); IG # 0.3 10*3/uL (0.0-0.1); LYMPH # 1.1 10*3/uL (1.3-4.4); LYMPH % 5.2 % (27.0-41.0); MEAN CELL VOLUME 86.9 fl (81.0-99.0); MEAN CORPUSCULAR HGB 28.4 pg (27.0-31.0); MEAN CORPUSCULAR HGB CONC 32.6 g/dl (33.0-37.0); MEAN PLATELET VOLUME 9.8 fl (9.6-12.3); MONO # 0.7 10*3/uL (0.1-1.0); MONO % 3.3 % (3.0-9.0); NEUT # 18.3 10*3/uL (2.3-7.9); NEUT % 89.9 % (47.0-73.0); PLATELET COUNT AUTOMATED 265 10*3/uL (130-400); RED BLOOD COUNT 3.35 10*6/uL (4.10-5.10); RED CELL DISTRI WIDTH 15.2 % (0-14.5); WHITE BLOOD COUNT 20.4 10*3/uL (4.8-10.8)
[2016-12-29 07:31] LABS: ALKALINE PHOSPHATASE 58 U/L (45-117); BILIRUBIN, TOTAL 0.9 mg/dl (0.2-1.0); BUN 13 mg/dl (7-24); CARBON DIOXIDE 25 mmol/L (21-32); CHLORIDE 105 mmol/L (98-107); EST GLOM FILT AFRICAN AMERICAN > 60 ml/min; GLUCOSE 133 mg/dL (65-99); MAGNESIUM 2.3 mg/dL (1.5-2.1); PHOSPHOROUS 2.1 mg/dL (2.5-4.9); POTASSIUM 3.2 mmol/L (3.5-5.1); SGOT/AST 7 IU/L (3-35); SGPT/ALT 13 U/L (12-78); SODIUM 143 mmol/L (136-145); TOTAL PROTEIN 5.8 gm/dL (6.4-8.2)
[2016-12-29 08:00] VITALS: BP 131/41
[2016-12-29 12:00] VITALS: BP 116/58
[2016-12-29 16:00] VITALS: BP 122/52
[2016-12-29 20:00] VITALS: BP 119/45
[2016-12-30] VITALS: BP 115/44
[2016-12-30 06:23] LABS: BASO % 0.1 % (0.0-1.0); EOS % 0.1 % (1.0-4.0); HEMATOCRIT 25.9 % (37.0-47.0); HEMOGLOBIN 8.3 g/dl (12.0-16.0); IG # 0.2 10*3/uL (0.0-0.1); LYMPH # 2.6 10*3/uL (1.3-4.4); LYMPH % 13.2 % (27.0-41.0); MEAN CORPUSCULAR HGB 28.5 pg (27.0-31.0); MEAN PLATELET VOLUME 10.1 fl (9.6-12.3); MONO # 1.5 10*3/uL (0.1-1.0); MONO % 7.7 % (3.0-9.0); NEUT # 15.2 10*3/uL (2.3-7.9); PLATELET COUNT AUTOMATED 211 10*3/uL (130-400); RED BLOOD COUNT 2.91 10*6/uL (4.10-5.10); RED CELL DISTRI WIDTH 15.5 % (0-14.5); WHITE BLOOD COUNT 19.5 10*3/uL (4.8-10.8)
[2016-12-30 06:56] LABS: CHLORIDE 110 mmol/L (98-107); SODIUM 143 mmol/L (136-145)
[2016-12-30 07:02] LABS: ALBUMIN 2.4 gm/dl (3.1-4.5); ALKALINE PHOSPHATASE 45 U/L (45-117); BILIRUBIN, TOTAL 0.7 mg/dl (0.2-1.0); BUN 11 mg/dl (7-24); CARBON DIOXIDE 24 mmol/L (21-32); EST GLOM FILT AFRICAN AMERICAN > 60 ml/min; GLUCOSE 89 mg/dL (65-99); MAGNESIUM 2.2 mg/dL (1.5-2.1); PHOSPHOROUS 1.7 mg/dL (2.5-4.9); SGOT/AST 8 IU/L (3-35); SGPT/ALT 11 U/L (12-78); TOTAL PROTEIN 4.8 gm/dL (6.4-8.2)
[2016-12-30 08:00] VITALS: BP 124/50
[2016-12-30 12:00] VITALS: BP 126/48
[2016-12-30 16:00] VITALS: BP 114/52
[2016-12-30 20:00] VITALS: BP 125/41
[2016-12-31] VITALS: BP 131/62
[2016-12-31 05:54] LABS: BASO % 0.1 % (0.0-1.0); EOS % 0.1 % (1.0-4.0); HEMATOCRIT 27.8 % (37.0-47.0); HEMOGLOBIN 8.8 g/dl (12.0-16.0); IG # 0.1 10*3/uL (0.0-0.1); LYMPH # 2.2 10*3/uL (1.3-4.4); LYMPH % 13.5 % (27.0-41.0); MEAN CORPUSCULAR HGB 28.5 pg (27.0-31.0); MEAN CORPUSCULAR HGB CONC 31.7 g/dl (33.0-37.0); MEAN PLATELET VOLUME 9.9 fl (9.6-12.3); MONO # 1.1 10*3/uL (0.1-1.0); MONO % 6.4 % (3.0-9.0); NEUT # 13.1 10*3/uL (2.3-7.9); NEUT % 79.1 % (47.0-73.0); PLATELET COUNT AUTOMATED 231 10*3/uL (130-400); RED BLOOD COUNT 3.09 10*6/uL (4.10-5.10); RED CELL DISTRI WIDTH 15.8 % (0-14.5); WHITE BLOOD COUNT 16.6 10*3/uL (4.8-10.8)
[2016-12-31 06:05] LABS: ALBUMIN 2.7 gm/dl (3.1-4.5); ALKALINE PHOSPHATASE 51 U/L (45-117); BILIRUBIN, TOTAL 0.6 mg/dl (0.2-1.0); BUN 9 mg/dl (7-24); CARBON DIOXIDE 26 mmol/L (21-32); CHLORIDE 109 mmol/L (98-107); EST GLOM FILT AFRICAN AMERICAN > 60 ml/min; GLUCOSE 100 mg/dL (65-99); MAGNESIUM 2.2 mg/dL (1.5-2.1); PHOSPHOROUS 2.3 mg/dL (2.5-4.9); POTASSIUM 3.5 mmol/L (3.5-5.1); SGOT/AST 8 IU/L (3-35); SGPT/ALT 13 U/L (12-78); SODIUM 144 mmol/L (136-145); TOTAL PROTEIN 5.2 gm/dL (6.4-8.2)
[2016-12-31 08:00] VITALS: BP 98/70
[2016-12-31 12:00] VITALS: BP 124/58
[2016-12-31 16:00] VITALS: BP 122/60
[2016-12-31 20:00] VITALS: BP 123/52
[2017-01-01] VITALS: BP 115/42
[2017-01-01 06:54] LABS: BASO % 0.1 % (0.0-1.0); EOS % 0.1 % (1.0-4.0); HEMATOCRIT 29.5 % (37.0-47.0); HEMOGLOBIN 9.5 g/dl (12.0-16.0); IG # 0.2 10*3/uL (0.0-0.1); LYMPH # 2.6 10*3/uL (1.3-4.4); LYMPH % 15.1 % (27.0-41.0); MEAN CELL VOLUME 89.4 fl (81.0-99.0); MEAN CORPUSCULAR HGB 28.8 pg (27.0-31.0); MEAN CORPUSCULAR HGB CONC 32.2 g/dl (33.0-37.0); MEAN PLATELET VOLUME 9.9 fl (9.6-12.3); MONO # 0.9 10*3/uL (0.1-1.0); MONO % 5.4 % (3.0-9.0); NEUT # 13.6 10*3/uL (2.3-7.9); NEUT % 78.2 % (47.0-73.0); PLATELET COUNT AUTOMATED 231 10*3/uL (130-400); RED CELL DISTRI WIDTH 15.9 % (0-14.5); WHITE BLOOD COUNT 17.4 10*3/uL (4.8-10.8)
[2017-01-01 07:10] LABS: ALBUMIN 2.8 gm/dl (3.1-4.5); ALKALINE PHOSPHATASE 56 U/L (45-117); BILIRUBIN, TOTAL 0.9 mg/dl (0.2-1.0); BUN 12 mg/dl (7-24); CARBON DIOXIDE 25 mmol/L (21-32); CHLORIDE 106 mmol/L (98-107); EST GLOM FILT AFRICAN AMERICAN > 60 ml/min; GLUCOSE 92 mg/dL (65-99); MAGNESIUM 2.2 mg/dL (1.5-2.1); POTASSIUM 3.4 mmol/L (3.5-5.1); SGOT/AST 12 IU/L (3-35); SGPT/ALT 15 U/L (12-78); SODIUM 141 mmol/L (136-145); TOTAL PROTEIN 5.7 gm/dL (6.4-8.2)
[2017-01-01 08:00] VITALS: BP 135/47
[2017-01-01 12:00] VITALS: BP 149/43
[2017-01-01 16:00] VITALS: BP 143/48
[2017-01-01 20:00] VITALS: BP 144/56
[2017-01-02] VITALS: BP 130/49
[2017-01-02 08:00] VITALS: BP 125/42
[2017-01-02 12:00] VITALS: BP 136/48
[2017-01-02 16:00] VITALS: BP 111/60
[2017-01-02 20:00] VITALS: BP 128/55
[2017-01-03] VITALS: BP 119/48
[2017-01-03 04:00] VITALS: BP 120/44
[2017-01-03 06:09] LABS: BUN 12 mg/dl (7-24); CARBON DIOXIDE 30 mmol/L (21-32); CHLORIDE 102 mmol/L (98-107); EST GLOM FILT AFRICAN AMERICAN > 60 ml/min; GLUCOSE 85 mg/dL (65-99); POTASSIUM 3.5 mmol/L (3.5-5.1); SODIUM 140 mmol/L (136-145)
[2017-01-03 06:19] LABS: BASO % 0.1 % (0.0-1.0); EOS # 0.1 10*3/uL (0.0-0.4); EOS % 0.4 % (1.0-4.0); HEMOGLOBIN 9.3 g/dl (12.0-16.0); IG # 0.2 10*3/uL (0.0-0.1); LYMPH # 2.7 10*3/uL (1.3-4.4); LYMPH % 16.7 % (27.0-41.0); MEAN CELL VOLUME 90.1 fl (81.0-99.0); MEAN CORPUSCULAR HGB 28.9 pg (27.0-31.0); MEAN CORPUSCULAR HGB CONC 32.1 g/dl (33.0-37.0); MEAN PLATELET VOLUME 9.9 fl (9.6-12.3); MONO # 0.9 10*3/uL (0.1-1.0); MONO % 5.5 % (3.0-9.0); NEUT # 12.3 10*3/uL (2.3-7.9); NEUT % 76.3 % (47.0-73.0); PLATELET COUNT AUTOMATED 244 10*3/uL (130-400); RED BLOOD COUNT 3.22 10*6/uL (4.10-5.10); RED CELL DISTRI WIDTH 16.3 % (0-14.5); WHITE BLOOD COUNT 16.1 10*3/uL (4.8-10.8)
[2017-01-03 08:00] VITALS: BP 116/42; BP 122/58
[2017-01-03] MEDS ORDERED: LEVAQUIN750 M1 PO (10:28)
[2017-01-03 12:00] VITALS: BP 110/46
== END 2017-01-03 13:28 | disposition other institution (70) | DRG 871 ==
LOC: ED 13:03 → EDHOLD 15:06 → 5E 15:06
PROVIDERS: Emergency Medicine; Hospitalist; Registered Nurse; Student in an Organized Health Care Education/Training Program
DX: A41.9 Sepsis, unspecified organism (principal); J18.9 Pneumonia, unspecified organism; C43.9 Malignant melanoma of skin, unspecified; D64.9 Anemia, unspecified; I48.2 Chronic atrial fibrillation; J44.0 Chronic obstructive pulmonary disease with (acute) lower respiratory infection; E83.39 Other disorders of phosphorus metabolism; J44.1 Chronic obstructive pulmonary disease with (acute) exacerbation; M81.0 Age-related osteoporosis without current pathological fracture; R91.1 Solitary pulmonary nodule; E87.6 Hypokalemia; T38.0X5A Adverse effect of glucocorticoids and synthetic analogues, initial encounter; J20.9 Acute bronchitis, unspecified; Z90.710 Acquired absence of both cervix and uterus; Z90.49 Acquired absence of other specified parts of digestive tract; Z80.8 Family history of malignant neoplasm of other organs or systems; Z82.5 Family history of asthma and other chronic lower respiratory diseases; Z91.041 Radiographic dye allergy status; Z79.82 Long term (current) use of aspirin; Z79.899 Other long term (current) drug therapy; Y92.89 Other specified places as the place of occurrence of the external cause

== ENCOUNTER 2017-01-23 13:27 | Inpatient (IN) | payer MEDICARE ==
[~2017-01-23] VITALS: Ht 152.4 cm; Wt 62.9 kg
[~2017-01-23 13:27] MED LIST changes: +LEVAQUIN750 M1 PO
[2017-01-23 13:44] VITALS: BP 150/57
[2017-01-23 13:56] VITALS: BP 150/57
[2017-01-23 14:09] LABS: BASO # 0.1 10*3/uL (0.0-0.1); BASO % 0.8 % (0.0-1.0); EOS # 0.3 10*3/uL (0.0-0.4); EOS % 3.7 % (1.0-4.0); HEMATOCRIT 35.6 % (37.0-47.0); HEMOGLOBIN 11.2 g/dl (12.0-16.0); LYMPH # 1.7 10*3/uL (1.3-4.4); LYMPH % 23.6 % (27.0-41.0); MEAN CORPUSCULAR HGB 28.9 pg (27.0-31.0); MEAN CORPUSCULAR HGB CONC 31.5 g/dl (33.0-37.0); MEAN PLATELET VOLUME 8.9 fl (9.6-12.3); MONO # 0.7 10*3/uL (0.1-1.0); MONO % 9.4 % (3.0-9.0); NEUT # 4.6 10*3/uL (2.3-7.9); NEUT % 62.1 % (47.0-73.0); PLATELET COUNT AUTOMATED 359 10*3/uL (130-400); RED BLOOD COUNT 3.87 10*6/uL (4.10-5.10); RED CELL DISTRI WIDTH 17.8 % (0-14.5); WHITE BLOOD COUNT 7.4 10*3/uL (4.8-10.8)
[2017-01-23 14:18] LABS: INTERNATIONAL NORM RATIO 1.1 (2.0-3.5); PROTHROMBIN TIME 11.8 SECONDS (9.0-12.4)
[2017-01-23 14:27] LABS: ALBUMIN 3.4 gm/dl (3.1-4.5); ALKALINE PHOSPHATASE 92 U/L (45-117); BILIRUBIN, TOTAL 0.6 mg/dl (0.2-1.0); BUN 7 mg/dl (7-24); CARBON DIOXIDE 23 mmol/L (21-32); CHLORIDE 109 mmol/L (98-107); EST GLOM FILT AFRICAN AMERICAN > 60 ml/min; GLUCOSE 91 mg/dL (65-99); MAGNESIUM 2.1 mg/dL (1.5-2.1); POTASSIUM 3.5 mmol/L (3.5-5.1); SGOT/AST 22 IU/L (3-35); SGPT/ALT 21 U/L (12-78); SODIUM 142 mmol/L (136-145); TOTAL PROTEIN 6.9 gm/dL (6.4-8.2); TROPONIN I < 0.015 ng/ml (<0.045)
[2017-01-23 16:12] LABS: BILIRUBIN 1+ (NEGATIVE); BLOOD 2+ (NEGATIVE); CLARITY CLOUDY (CLEAR); COLOR YELLOW (YELLOW); GLUCOSE NEGATIVE (NEGATIVE); KETONE 2+ (NEGATIVE); LEUKO ESTERASE 1+ (NEGATIVE); NITRITE POSITIVE (NEGATIVE); PH 5.5 (5.0-9.0); PROTEIN TRACE (NEGATIVE); SPECIFIC GRAVITY >= 1.030 (1.005-1.030)
[2017-01-23 16:30] LABS: BACTERIA 4+; MUCOUS TRACE; URINE REFLEX COMMENT YES (NO); WBC TNTC wbc/hpf (0-5)
[2017-01-23 17:10] VITALS: BP 139/68
[2017-01-23 17:30] VITALS: BP 124/57; BP 126/57
[2017-01-23 20:00] VITALS: BP 130/59
[2017-01-24] VITALS: BP 135/53
[2017-01-24 06:40] LABS: BASO # 0.1 10*3/uL (0.0-0.1); EOS # 0.3 10*3/uL (0.0-0.4); EOS % 5.3 % (1.0-4.0); HEMATOCRIT 30.6 % (37.0-47.0); HEMOGLOBIN 9.6 g/dl (12.0-16.0); LYMPH # 1.1 10*3/uL (1.3-4.4); LYMPH % 22.4 % (27.0-41.0); MEAN CELL VOLUME 93.3 fl (81.0-99.0); MEAN CORPUSCULAR HGB 29.3 pg (27.0-31.0); MEAN CORPUSCULAR HGB CONC 31.4 g/dl (33.0-37.0); MEAN PLATELET VOLUME 8.6 fl (9.6-12.3); MONO # 0.5 10*3/uL (0.1-1.0); MONO % 9.9 % (3.0-9.0); PLATELET COUNT AUTOMATED 275 10*3/uL (130-400); RED BLOOD COUNT 3.28 10*6/uL (4.10-5.10); RED CELL DISTRI WIDTH 17.9 % (0-14.5)
[2017-01-24 07:05] LABS: ALBUMIN 2.6 gm/dl (3.1-4.5); ALKALINE PHOSPHATASE 74 U/L (45-117); BILIRUBIN, TOTAL 0.5 mg/dl (0.2-1.0); BUN 3 mg/dl (7-24); CARBON DIOXIDE 22 mmol/L (21-32); CHLORIDE 115 mmol/L (98-107); EST GLOM FILT AFRICAN AMERICAN > 60 ml/min; GLUCOSE 81 mg/dL (65-99); POTASSIUM 3.4 mmol/L (3.5-5.1); SGOT/AST 14 IU/L (3-35); SGPT/ALT 15 U/L (12-78); SODIUM 145 mmol/L (136-145); TOTAL PROTEIN 5.5 gm/dL (6.4-8.2)
[2017-01-24 08:00] VITALS: BP 129/50
[2017-01-24 12:00] VITALS: BP 117/49
[2017-01-24 16:00] VITALS: BP 118/47
[2017-01-24 20:00] VITALS: BP 110/40
[2017-01-25] VITALS: BP 112/52
[2017-01-25 07:12] LABS: BASO # 0.1 10*3/uL (0.0-0.1); BASO % 1.1 % (0.0-1.0); EOS # 0.3 10*3/uL (0.0-0.4); EOS % 4.7 % (1.0-4.0); HEMATOCRIT 31.6 % (37.0-47.0); LYMPH # 1.2 10*3/uL (1.3-4.4); LYMPH % 21.5 % (27.0-41.0); MEAN CELL VOLUME 93.5 fl (81.0-99.0); MEAN CORPUSCULAR HGB 29.6 pg (27.0-31.0); MEAN CORPUSCULAR HGB CONC 31.6 g/dl (33.0-37.0); MONO # 0.6 10*3/uL (0.1-1.0); NEUT # 3.4 10*3/uL (2.3-7.9); NEUT % 62.3 % (47.0-73.0); PLATELET COUNT AUTOMATED 304 10*3/uL (130-400); RED BLOOD COUNT 3.38 10*6/uL (4.10-5.10); RED CELL DISTRI WIDTH 18.2 % (0-14.5); WHITE BLOOD COUNT 5.5 10*3/uL (4.8-10.8)
[2017-01-25 07:37] LABS: CARBON DIOXIDE 22 mmol/L (21-32); CHLORIDE 114 mmol/L (98-107); EST GLOM FILT AFRICAN AMERICAN > 60 ml/min; GLUCOSE 81 mg/dL (65-99); POTASSIUM 3.3 mmol/L (3.5-5.1); SODIUM 146 mmol/L (136-145)
[2017-01-25 07:38] LABS: BUN < 1 mg/dl (7-24)
[2017-01-25 08:00] VITALS: BP 130/47
[2017-01-25] MEDS ORDERED: METOPROLOL TART50 M1 PO (10:50)
[2017-01-25] MEDS ORDERED: BACTRIM DS 8001 TA1 PO (10:52)
== END 2017-01-25 12:18 | disposition home health service (06) | DRG 872 ==
LOC: ED 13:27 → 4E 16:42 → EDHOLD 16:42 → 4E 17:08
PROVIDERS: Emergency Medicine; Hospitalist; Physician Assistant
DX: A41.9 Sepsis, unspecified organism (principal); E44.0 Moderate protein-calorie malnutrition; J44.9 Chronic obstructive pulmonary disease, unspecified; I48.0 Paroxysmal atrial fibrillation; E83.39 Other disorders of phosphorus metabolism; I48.2 Chronic atrial fibrillation; N30.01 Acute cystitis with hematuria; D64.9 Anemia, unspecified; C44.91 Basal cell carcinoma of skin, unspecified; R07.89 Other chest pain; Z91.041 Radiographic dye allergy status; Z79.01 Long term (current) use of anticoagulants; Z90.710 Acquired absence of both cervix and uterus; Z80.8 Family history of malignant neoplasm of other organs or systems; M81.0 Age-related osteoporosis without current pathological fracture; R07.9 Chest pain, unspecified; E87.6 Hypokalemia; Z68.27 Body mass index [BMI] 27.0-27.9, adult

== ENCOUNTER 2017-02-02 17:04 | Inpatient (IN) | payer MEDICARE ==
[~2017-02-02] VITALS: Ht 152.4 cm; Wt 62.1 kg
[~2017-02-02 17:04] MED LIST changes: -AMITRIPTYLINE25 MG PO
[2017-02-02 17:45] VITALS: BP 122/60
[2017-02-02 20:00] VITALS: BP 121/68
[2017-02-03] VITALS: BP 102/49
[2017-02-03 04:42] VITALS: BP 102/39
[2017-02-03 05:57] LABS: BASO # 0.1 10*3/uL (0.0-0.1); BASO % 0.4 % (0.0-1.0); EOS % 0.2 % (1.0-4.0); HEMATOCRIT 39.4 % (37.0-47.0); HEMOGLOBIN 12.1 g/dl (12.0-16.0); IG # 0.1 10*3/uL (0.0-0.1); LYMPH # 2.1 10*3/uL (1.3-4.4); LYMPH % 12.7 % (27.0-41.0); MEAN CELL VOLUME 94.5 fl (81.0-99.0); MEAN CORPUSCULAR HGB CONC 30.7 g/dl (33.0-37.0); MONO # 0.6 10*3/uL (0.1-1.0); MONO % 3.8 % (3.0-9.0); NEUT # 13.4 10*3/uL (2.3-7.9); NEUT % 82.5 % (47.0-73.0); PLATELET COUNT AUTOMATED 353 10*3/uL (130-400); RED BLOOD COUNT 4.17 10*6/uL (4.10-5.10); RED CELL DISTRI WIDTH 16.8 % (0-14.5); WHITE BLOOD COUNT 16.2 10*3/uL (4.8-10.8)
[2017-02-03 06:05] LABS: ALBUMIN 3.3 gm/dl (3.1-4.5); BILIRUBIN, TOTAL 0.7 mg/dl (0.2-1.0); BUN 11 mg/dl (7-24); CARBON DIOXIDE 16 mmol/L (21-32); CHLORIDE 110 mmol/L (98-107); EST GLOM FILT AFRICAN AMERICAN > 60 ml/min; GLUCOSE 194 mg/dL (65-99); PHOSPHOROUS 2.7 mg/dL (2.5-4.9); POTASSIUM 4.7 mmol/L (3.5-5.1); SGOT/AST 28 IU/L (3-35); SGPT/ALT 15 U/L (12-78); SODIUM 139 mmol/L (136-145); TOTAL PROTEIN 6.8 gm/dL (6.4-8.2)
[2017-02-03 06:29] LABS: ALKALINE PHOSPHATASE 74 U/L (45-117)
[2017-02-03 08:00] VITALS: BP 120/42
[2017-02-03 12:00] VITALS: BP 104/41
[2017-02-03 16:00] VITALS: BP 129/43
[2017-02-03 16:16] LABS: BILIRUBIN 1+ (NEGATIVE); BLOOD NEGATIVE (NEGATIVE); CLARITY SL CLOUDY (CLEAR); COLOR YELLOW (YELLOW); GLUCOSE NEGATIVE (NEGATIVE); KETONE 3+ (NEGATIVE); LEUKO ESTERASE NEGATIVE (NEGATIVE); NITRITE NEGATIVE (NEGATIVE); PROTEIN TRACE (NEGATIVE); SPECIFIC GRAVITY >= 1.030 (1.005-1.030); UROBILINOGEN 0.2 E.U./dl (0.2-1.0)
[2017-02-03 16:25] LABS: BACTERIA TRACE
[2017-02-03 20:00] VITALS: BP 104/41
[2017-02-04] VITALS: BP 115/40
[2017-02-04 06:51] LABS: BASO # 0.1 10*3/uL (0.0-0.1); BASO % 1.3 % (0.0-1.0); EOS # 0.2 10*3/uL (0.0-0.4); EOS % 2.8 % (1.0-4.0); HEMATOCRIT 37.1 % (37.0-47.0); HEMOGLOBIN 11.9 g/dl (12.0-16.0); LYMPH # 1.7 10*3/uL (1.3-4.4); LYMPH % 21.4 % (27.0-41.0); MEAN CELL VOLUME 92.3 fl (81.0-99.0); MEAN CORPUSCULAR HGB 29.6 pg (27.0-31.0); MEAN CORPUSCULAR HGB CONC 32.1 g/dl (33.0-37.0); MEAN PLATELET VOLUME 9.6 fl (9.6-12.3); MONO # 0.8 10*3/uL (0.1-1.0); MONO % 10.2 % (3.0-9.0); NEUT # 5.1 10*3/uL (2.3-7.9); NEUT % 63.9 % (47.0-73.0); PLATELET COUNT AUTOMATED 345 10*3/uL (130-400); RED BLOOD COUNT 4.02 10*6/uL (4.10-5.10); RED CELL DISTRI WIDTH 17.3 % (0-14.5)
[2017-02-04 07:19] LABS: ALBUMIN 3.3 gm/dl (3.1-4.5); ALKALINE PHOSPHATASE 72 U/L (45-117); BILIRUBIN, TOTAL 0.4 mg/dl (0.2-1.0); BUN 14 mg/dl (7-24); CARBON DIOXIDE 24 mmol/L (21-32); CHLORIDE 109 mmol/L (98-107); EST GLOM FILT AFRICAN AMERICAN > 60 ml/min; GLUCOSE 93 mg/dL (65-99); MAGNESIUM 2.1 mg/dL (1.5-2.1); PHOSPHOROUS 1.8 mg/dL (2.5-4.9); POTASSIUM 3.4 mmol/L (3.5-5.1); SGOT/AST 14 IU/L (3-35); SGPT/ALT 15 U/L (12-78); SODIUM 144 mmol/L (136-145); TOTAL PROTEIN 6.7 gm/dL (6.4-8.2)
[2017-02-04 08:00] VITALS: BP 128/48
[2017-02-04 12:00] VITALS: BP 130/44
[2017-02-04 16:00] VITALS: BP 126/47
[2017-02-04 20:00] VITALS: BP 102/50
[2017-02-05] VITALS: BP 120/47
[2017-02-05 08:00] VITALS: BP 117/42
[2017-02-05] MEDS ORDERED: AMITRIPTYLINE25 MG PO (11:59)
[2017-02-05] MEDS ORDERED: OMEPRAZOLE40 MG PO (11:59)
[2017-02-05 12:00] VITALS: BP 116/53
[2017-02-05 16:00] VITALS: BP 118/58
== END 2017-02-05 16:12 | disposition home health service (06) | DRG 392 ==
LOC: 4E 17:04
PROVIDERS: Internal Medicine
DX: R13.10 Dysphagia, unspecified (principal); E44.0 Moderate protein-calorie malnutrition; I48.91 Unspecified atrial fibrillation; E87.8 Other disorders of electrolyte and fluid balance, not elsewhere classified; D64.9 Anemia, unspecified; C44.91 Basal cell carcinoma of skin, unspecified; K21.9 Gastro-esophageal reflux disease without esophagitis; M81.0 Age-related osteoporosis without current pathological fracture; R73.9 Hyperglycemia, unspecified; Z85.820 Personal history of malignant melanoma of skin; Z87.440 Personal history of urinary (tract) infections; Z90.49 Acquired absence of other specified parts of digestive tract; Z90.710 Acquired absence of both cervix and uterus; Z80.8 Family history of malignant neoplasm of other organs or systems; Z83.6 Family history of other diseases of the respiratory system; Z91.041 Radiographic dye allergy status; Z79.82 Long term (current) use of aspirin; Z79.01 Long term (current) use of anticoagulants; Z79.899 Other long term (current) drug therapy; Z68.26 Body mass index [BMI] 26.0-26.9, adult

== ENCOUNTER → 2017-02-02 | Day surgery (SDC) | payer MEDICARE ==
[~2017-02-02] VITALS: Ht 152.4 cm; Wt 675.9 kg
[~2017-02-02] MED LIST changes: +AMITRIPTYLINE25 MG PO; +BACTRIM DS 8001 TA1 PO; +METOPROLOL TART50 M1 PO
--- NOTE | ~2017-02-02 | O ---
[place], [place] OPERATIVE NOTE [id number] UNIT #: [id number] ROOM: [facility] [birth year] DOS: HISTORY OF PRESENT ILLNESS: The patient is 76-year-old presenting with total dysphagia. The patient has been repeatedly dilated In the past with dilation last for about 2 weeks and then she becomes dysphagic again, unable to eat or drink and this has become a point of protein malnutrition as well as weight loss and dehydration and also patient has history of choking on the food. Previous radiologic studies have been also done. ALLERGIES: IODINE. FAMILY HISTORY: Noncontributory. 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 PAST MEDICAL HISTORY: Atrial fibrillation, hypotension history. PROCEDURE: Today's procedure part of investigation is panendoscopy plus balloon dilation of esophagus plus percutaneous endoscopic gastrostomy plus biopsy of antral ulcer. PREMEDICATION: Versed and Diprivan. SCOPE: Olympus forward-viewing gastroscope Q10 video. REPORT: After putting the patient in the left supine position, scope was introduced; thereafter, under direct visualization, advanced through the length of esophagus into gastric pouch. As I approached the antrum, 0.8 cm ulcerations in the antrum was noticed, photographed, margin of which was biopsied. Duodenal patency assured. At this stage, anterior abdominal wall aseptically prepped, 2 mL of Xylocaine in best transillumination line which is subxiphoid left leaning was chosen, Xylocaine injected. Trocar was introduced in the same spot. Guidewire was advanced, grasped and orally extracted. At this stage, a gastrostomy tube Irish 20 was anchored to the wire, orally pulled and recovered from the surface of the abdomen. Anchors placed, patency checked. At this stage, a balloon size 20 was introduced inside the gastric pouch and swept along the esophagus. I did not see any stricture of significance in the esophagus. The patient extubated, tolerated procedure well. IMPRESSION: Dysphagia, status post percutaneous endoscopic gastrostomy, antral ulcers, status post biopsy, history of esophageal stricture, status post balloon redilation status post previous modified barium swallow with normal results. PLAN AND DISCUSSION: At this stage, the patient would be admitted for the next day or to the hospital service for assuring that she is hydrated and she is taught how to use the PEG tube and stabilization. The patient is going to be also kept off the Xarelto and aspirin understanding she has history of atrial fibrillation, but this can be addressed next day or two with both medications. [place], [place] OPERATIVE NOTE NAME: JODY SCHREIBER UNIT #: [id number] ROOM: DOCTOR: LOVE CERVANTES,RAFAEL BIRTHDATE: [birth year] We are going to start Osmolite 1.2 at bolus fashion feeding 1 can 4 times per day for now and hydration is going to be free water at 200 mL every 4 hours average and then juices and oral intake is going to be liberated. The patient is to followup with Dr. Gar. Thank you very much indeed. RAFAEL ALEMAN MD CM:OPRECORD:OPERATIVE NOTE [id number] [facility] RAFAEL ALEMAN MD 02/02/17 1735 interface
[2017-02-02 14:28] VITALS: BP 130/43
[2017-02-02 16:00] VITALS: BP 122/40
[2017-02-02 16:15] VITALS: BP 127/47
[2017-02-02 16:30] VITALS: BP 127/47
== END | disposition home or self-care (01) ==
LOC: SDC 02-01 12:30
DX: K25.9 Gastric ulcer, unspecified as acute or chronic, without hemorrhage or perforation (principal); R13.10 Dysphagia, unspecified; Z90.710 Acquired absence of both cervix and uterus; Z88.8 Allergy status to other drugs, medicaments and biological substances; Z85.828 Personal history of other malignant neoplasm of skin; Z85.820 Personal history of malignant melanoma of skin; I48.91 Unspecified atrial fibrillation; K21.9 Gastro-esophageal reflux disease without esophagitis; J44.9 Chronic obstructive pulmonary disease, unspecified; D64.9 Anemia, unspecified; Z87.01 Personal history of pneumonia (recurrent); Z80.9 Family history of malignant neoplasm, unspecified; Z82.5 Family history of asthma and other chronic lower respiratory diseases; K29.50 Unspecified chronic gastritis without bleeding

== ENCOUNTER → 2017-02-16 | Outpatient (CLI) | payer MEDICARE ==
[~2017-02-16] MED LIST changes: +AMITRIPTYLINE25 MG PO
[2017-02-16 09:50] LABS: BASO % 0.3 % (0.0-1.0); EOS # 0.4 10*3/uL (0.0-0.4); EOS % 3.7 % (1.0-4.0); HEMATOCRIT 37.4 % (37.0-47.0); HEMOGLOBIN 12.1 g/dl (12.0-16.0); LYMPH # 1.1 10*3/uL (1.3-4.4); LYMPH % 10.7 % (27.0-41.0); MEAN CORPUSCULAR HGB 29.4 pg (27.0-31.0); MEAN CORPUSCULAR HGB CONC 32.4 g/dl (33.0-37.0); MEAN PLATELET VOLUME 9.7 fl (9.6-12.3); MONO % 9.7 % (3.0-9.0); NEUT # 7.5 10*3/uL (2.3-7.9); NEUT % 75.3 % (47.0-73.0); PLATELET COUNT AUTOMATED 269 10*3/uL (130-400); RED BLOOD COUNT 4.11 10*6/uL (4.10-5.10); RED CELL DISTRI WIDTH 16.7 % (0-14.5); WHITE BLOOD COUNT 9.9 10*3/uL (4.8-10.8)
[2017-02-16 10:12] LABS: ALBUMIN 3.5 gm/dl (3.1-4.5); ALKALINE PHOSPHATASE 70 U/L (45-117); BILIRUBIN, TOTAL 0.6 mg/dl (0.2-1.0); BUN 9 mg/dl (7-24); CARBON DIOXIDE 23 mmol/L (21-32); CHLORIDE 100 mmol/L (98-107); EST GLOM FILT AFRICAN AMERICAN > 60 ml/min; GLUCOSE 101 mg/dL (65-99); IRON 49 ug/dL (50-170); IRON SATURATION 14 %; POTASSIUM 4.4 mmol/L (3.5-5.1); SGOT/AST 16 IU/L (3-35); SGPT/ALT 14 U/L (12-78); SODIUM 131 mmol/L (136-145); UIBC 293 ug/dL (110-365)
[2017-02-16 13:01] LABS: FERRITIN 43.2 ng/mL (10.0-291.0)
[2017-02-16 13:02] LABS: FOLIC ACID 11.46 ng/mL (>5.38)
== END | disposition home or self-care (01) ==
LOC: LAB 09:32
PROVIDERS: Internal Medicine
DX: D64.9 Anemia, unspecified (principal); I73.9 Peripheral vascular disease, unspecified; R10.9 Unspecified abdominal pain

== ENCOUNTER → 2017-04-16 | Outpatient (CLI) | payer MEDICARE ==
[2017-04-16 09:24] LABS: BASO # 0.1 10*3/uL (0.0-0.1); BASO % 1.1 % (0.0-1.0); EOS # 0.3 10*3/uL (0.0-0.4); EOS % 3.1 % (1.0-4.0); HEMATOCRIT 36.8 % (37.0-47.0); LYMPH # 2.3 10*3/uL (1.3-4.4); LYMPH % 25.3 % (27.0-41.0); MEAN CELL VOLUME 90.4 fl (81.0-99.0); MEAN CORPUSCULAR HGB 29.5 pg (27.0-31.0); MEAN CORPUSCULAR HGB CONC 32.6 g/dl (33.0-37.0); MEAN PLATELET VOLUME 9.5 fl (9.6-12.3); MONO # 0.7 10*3/uL (0.1-1.0); MONO % 7.6 % (3.0-9.0); NEUT # 5.6 10*3/uL (2.3-7.9); NEUT % 62.7 % (47.0-73.0); PLATELET COUNT AUTOMATED 290 10*3/uL (130-400); RED BLOOD COUNT 4.07 10*6/uL (4.10-5.10); RED CELL DISTRI WIDTH 13.9 % (0-14.5)
[2017-04-16 09:50] LABS: ALBUMIN 3.5 gm/dl (3.1-4.5); ALKALINE PHOSPHATASE 91 U/L (45-117); BUN 11 mg/dl (7-24); CHLORIDE 106 mmol/L (98-107); CREATININE 0.73 mg/dL (0.55-1.02); POTASSIUM 4.2 mmol/L (3.5-5.1); SGOT/AST 18 IU/L (3-35); SGPT/ALT 15 U/L (12-78); SODIUM 141 mmol/L (136-145); TOTAL PROTEIN 7.1 gm/dL (6.4-8.2)
== END | disposition home or self-care (01) ==
LOC: LAB 09:08
PROVIDERS: Internal Medicine
DX: D64.9 Anemia, unspecified (principal)

== ENCOUNTER → 2017-05-24 | Outpatient (CLI) | payer MEDICARE ==
[2017-05-24 12:18] LABS: IRON 92 ug/dL (50-170); TOTAL IRON BINDING CAPACITY 376 ug/dl (250-450)
[2017-05-24 12:25] LABS: HEMATOCRIT 34.9 % (37.0-47.0); HEMOGLOBIN 11.4 g/dl (12.0-16.0); MEAN CELL VOLUME 90.4 fl (81.0-99.0); MEAN CORPUSCULAR HGB 29.5 pg (27.0-31.0); MEAN CORPUSCULAR HGB CONC 32.7 g/dl (33.0-37.0); MEAN PLATELET VOLUME 9.8 fl (9.6-12.3); PLATELET COUNT AUTOMATED 272 10*3/uL (130-400); RED BLOOD COUNT 3.86 10*6/uL (4.10-5.10); RED CELL DISTRI WIDTH 15.4 % (0-14.5); WHITE BLOOD COUNT 7.9 10*3/uL (4.8-10.8)
[2017-05-24 13:39] LABS: ATYPICAL LYMPHS 2 % (0-0); BASOPHILS 1 % (0-1); PLATELET SUFFICIENCY NORMAL (NORMAL); TOTAL CELLS COUNTED 100 #CELLS
== END | disposition home or self-care (01) ==
LOC: LAB 10:40 → RAD 11:00
PROVIDERS: Internal Medicine
DX: Z13.820 Encounter for screening for osteoporosis (principal); D64.9 Anemia, unspecified; R13.10 Dysphagia, unspecified; R89.9 Unspecified abnormal finding in specimens from other organs, systems and tissues; Z78.0 Asymptomatic menopausal state

== ENCOUNTER → 2017-05-27 | Outpatient (CLI) | payer MEDICARE | END | disposition home or self-care (01) | LOC: LAB 10:22 | DX: D64.9 Anemia, unspecified (principal); R89.9 Unspecified abnormal finding in specimens from other organs, systems and tissues ==

== ENCOUNTER 2017-11-11 09:27 | Emergency (ER) | payer OTHER ==
[~2017-11-11] VITALS: Wt 56.7 kg
[2017-11-11] MEDS ORDERED: PREDNISONE20 M1 PO (10:54)
== END 2017-11-11 11:25 ==
LOC: ED 09:27
DX: T63.481A Toxic effect of venom of other arthropod, accidental (unintentional), initial encounter (principal); Z90.710 Acquired absence of both cervix and uterus; Z98.890 Other specified postprocedural states; Z79.82 Long term (current) use of aspirin; Z91.041 Radiographic dye allergy status; Y92.9 Unspecified place or not applicable

== ENCOUNTER → 2017-11-13 | Outpatient (CLI) | payer OTHER ==
[~2017-11-13] MED LIST changes: +PREDNISONE20 M1 PO
== END | disposition home or self-care (01) ==
LOC: CT 11:58
DX: R22.1 Localized swelling, mass and lump, neck (principal); R13.10 Dysphagia, unspecified

== ENCOUNTER → 2017-11-21 | Outpatient (CLI) | payer OTHER | END | disposition home or self-care (01) | LOC: MAMMO 01:11 | DX: Z12.31 Encounter for screening mammogram for malignant neoplasm of breast (principal); R10.30 Lower abdominal pain, unspecified ==

== ENCOUNTER → 2018-05-22 | Outpatient (CLI) | payer OTHER ==
[~2018-05-22] MED LIST changes: +ELIQUIS5 M1 PO
== END | disposition home or self-care (01) ==
LOC: CT 03:35
DX: K76.0 Fatty (change of) liver, not elsewhere classified (principal); R91.1 Solitary pulmonary nodule; K25.9 Gastric ulcer, unspecified as acute or chronic, without hemorrhage or perforation

== ENCOUNTER → 2018-06-06 | Outpatient (CLI) | payer OTHER ==
[2018-06-06 08:33] LABS: BASO # 0.1 10*3/uL (0.0-0.1); BASO % 1.3 % (0.0-1.0); EOS # 0.4 10*3/uL (0.0-0.4); EOS % 5.8 % (1.0-4.0); HEMATOCRIT 35.5 % (37.0-47.0); LYMPH % 29.7 % (27.0-41.0); MEAN CELL VOLUME 91.7 fl (81.0-99.0); MEAN CORPUSCULAR HGB 28.4 pg (27.0-31.0); MEAN PLATELET VOLUME 8.8 fl (9.6-12.3); MONO # 0.5 10*3/uL (0.1-1.0); MONO % 7.4 % (3.0-9.0); NEUT # 3.8 10*3/uL (2.3-7.9); NEUT % 55.7 % (47.0-73.0); PLATELET COUNT AUTOMATED 286 10*3/uL (130-400); RED BLOOD COUNT 3.87 10*6/uL (4.10-5.10); RED CELL DISTRI WIDTH 14.6 % (0-14.5); WHITE BLOOD COUNT 6.9 10*3/uL (4.8-10.8)
[2018-06-06 09:11] LABS: ALBUMIN 3.4 gm/dl (3.1-4.5); BUN 7 mg/dl (7-24); CHLORIDE 108 mmol/L (98-107); CREATININE 0.68 mg/dL (0.55-1.02); POTASSIUM 3.6 mmol/L (3.5-5.1); SGOT/AST 22 IU/L (3-35); SGPT/ALT 19 U/L (12-78); SODIUM 141 mmol/L (136-145)
[2018-06-06 09:13] LABS: ALKALINE PHOSPHATASE 111 U/L (45-117); TOTAL PROTEIN 7.1 gm/dL (6.4-8.2)
== END | disposition home or self-care (01) ==
LOC: LAB 08:12
PROVIDERS: Internal Medicine
DX: K27.9 Peptic ulcer, site unspecified, unspecified as acute or chronic, without hemorrhage or perforation (principal); E16.4 Increased secretion of gastrin

== ENCOUNTER 2018-12-21 06:02 | Emergency (ER) | payer OTHER ==
[~2018-12-21] VITALS: Ht 152.4 cm; Wt 108.9 kg
--- NOTE | ~2018-12-21 | EKG ---
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
[2018-12-21 06:44] LABS: BASO # 0.1 10*3/uL (0.0-0.1); BASO % 0.6 % (0.0-1.0); EOS # 0.1 10*3/uL (0.0-0.4); EOS % 0.9 % (1.0-4.0); HEMATOCRIT 29.5 % (37.0-47.0); HEMOGLOBIN 9.5 g/dl (12.0-16.0); LYMPH # 1.9 10*3/uL (1.3-4.4); LYMPH % 14.8 % (27.0-41.0); MEAN CORPUSCULAR HGB CONC 32.2 g/dl (33.0-37.0); MEAN PLATELET VOLUME 9.2 fl (9.6-12.3); MONO # 1.3 10*3/uL (0.1-1.0); MONO % 10.2 % (3.0-9.0); NEUT # 9.5 10*3/uL (2.3-7.9); NEUT % 73.2 % (47.0-73.0); PLATELET COUNT AUTOMATED 270 10*3/uL (130-400); RED BLOOD COUNT 3.39 10*6/uL (4.10-5.10); RED CELL DISTRI WIDTH 17.2 % (0-14.5)
[2018-12-21 07:01] LABS: ACT PARTIAL THROMBO TIME 29.1 SECONDS (20.0-32.1)
[2018-12-21 07:02] LABS: ALKALINE PHOSPHATASE 110 U/L (45-117); BUN 9 mg/dl (7-24); CHLORIDE 104 mmol/L (98-107); CREATININE 0.64 mg/dL (0.55-1.02); POTASSIUM 3.5 mmol/L (3.5-5.1); SGOT/AST 13 IU/L (3-35); SGPT/ALT 12 U/L (12-78); SODIUM 137 mmol/L (136-145); TOTAL PROTEIN 7.1 gm/dL (6.4-8.2)
[2018-12-21 07:08] LABS: TROPONIN I < 0.015 ng/ml (<0.045)
[2018-12-21] MEDS ORDERED: VIBRAMYCIN100 MG PO (08:15)
[2018-12-21] MEDS ORDERED: TESSALON PERLE100 M1 PO (08:15)
[2018-12-22] MEDS ORDERED: LIPITOR40 MG PO (09:51)
[2018-12-22] MEDS ORDERED: VITAMIN D31000 UNI1 PO (09:51)
[2018-12-22] MEDS ORDERED: VITAMIN B1250 MCG PO (09:51)
[2018-12-22] MEDS ORDERED: PANTOPRAZOLE SO40 MG PO (09:52)
[2018-12-22] MEDS ORDERED: FISH OIL CONC1000 M1 PO (09:53)
[2018-12-22] MEDS ORDERED: SENNA LAX8.6 M1 PO (09:53)
[2018-12-22] MEDS ORDERED: MIRALAX119 GM PO (09:53)
[2018-12-22] MEDS ORDERED: METOPROLOL SUCC50 M1 PO (09:54)
== END 2018-12-21 08:45 | disposition home or self-care (01) ==
LOC: ED 06:02
PROVIDERS: Emergency Medicine
DX: J40 Bronchitis, not specified as acute or chronic (principal); I48.91 Unspecified atrial fibrillation; M81.0 Age-related osteoporosis without current pathological fracture; Z79.899 Other long term (current) drug therapy; Z91.040 Latex allergy status

== ENCOUNTER 2018-12-21 18:15 | Inpatient (IN) | payer OTHER ==
[~2018-12-21] VITALS: Ht 152.4 cm; Wt 74.5 kg
--- NOTE | ~2018-12-21 | EKG ---
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
--- NOTE | ~2018-12-21 | EKG ---
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
--- NOTE | ~2018-12-21 | PR ---
[place], [place] PROGRESS NOTE NAME: JODY SCHREIBER UNIT #: [id number] ROOM: 415 DOCTOR: LYNN DE LA CRUZ MD BIRTHDATE: [birth year] DOS: 12/23/2018 PULMONARY PROGRESS NOTE SUBJECTIVE: The patient noted comfortable at this time, resting in the bed this morning of assessment. Reported reduction of symptoms of hoarseness, coughing and shortness of breath. Denies symptoms of fever or chills. Denies symptoms of acute hemoptysis. The patient was noted afebrile in the last 24 hours as well. PHYSICAL EXAMINATION: GENERAL: She was comfortably resting in the bed this morning of assessment. No distress. VITAL SIGNS: Normal temperature, respiratory rate 20, heart rate of 89, blood pressure 110/60-122/58. Pulse ox saturation on room air 94% saturation. HEENT: Examination shows head was atraumatic. Eyes nonicterus. NECK: Supple. CARDIOVASCULAR SYSTEM: S1, S2 audible. LUNGS: No wheezing or crackles. ABDOMEN: Soft, nontender. Bowel sounds present. EXTREMITIES: No new change. LABORATORY DATA: CBC this morning; WBC count 19.7, hemoglobin 8.5, platelet count normal. BMP this morning is normal BUN and creatinine. Phosphorus noted decreased 2.1. Blood culture, no bacterial growth noted on of this month. IMPRESSION: The patient who has been currently treated and managed for acute laryngitis with pulmonary nodule with post-viral syndrome and acute exacerbation of bronchial asthma, patchy nodular infiltration in the lungs. PLAN OF MANAGEMENT: Continue the current plan of management, antibiotics, bronchodilators, oxygen supplementation, and corticosteroids. Monitoring of respiratory status will be continued. [place], [place] PROGRESS NOTE NAME: JODY SCHREIBER UNIT #: [id number] ROOM: 415 DOCTOR: LYNN DE LA CRUZ MD BIRTHDATE: [birth year] LYNN MACIAS MD CM:PNTRANS 1259 [id number] LYNN WEST MD 12/24/18 0047 interface
--- NOTE | ~2018-12-21 | CON ---
[place], [place] REPORT OF CONSULTATION NAME: [facility]IBER [id number] UNIT #: [id number] ROOM: 415 DOCTOR: LYNN DE LA CRUZ MD BIRTHDATE: [birth year] DOS: 12/22/2018 PULMONARY CONSULTATION, EVALUATION AND MANAGEMENT CONSULTATION REQUESTED BY: Hospitalist Service. REASON FOR CONSULTATION: Assessment of pneumonia, coughing and other symptoms. HISTORY OF PRESENT ILLNESS: This is a 78-year-old white female patient, known to me from the past. She has been admitted to the hospital under the Hospitalist Service as the patient has been reporting symptoms of increased nonproductive cough that started after her cold symptoms in the past 4-5 days. This has also resulted in loss of voice with hoarseness as well. She denies symptoms of chest pain. Shortness of breath and wheezing are reported with that. Denies symptoms of hemoptysis with her current symptoms. She has been seen in the Emergency Room, given doxycycline and other medications, and discharged to home setting. The patient presented back to the hospital because of worsening of symptoms. She was noted with a temperature of 102 degrees Fahrenheit and the patient came into the Emergency Room. She has been noted essentially with not much change in her symptoms since the hospitalization from yesterday. REVIEW OF SYSTEMS: CONSTITUTIONAL SYMPTOMS: Fatigue and tiredness reported, without any chills or fever. EYES: Denies burning, redness or tenderness. EARS, NOSE, THROAT SYMPTOMS: The patient is noted with hoarseness. There are no symptoms of postnasal drainage at the present time. Denies symptoms of sinus congestion or pain or epistaxis. CARDIOVASCULAR SYSTEM: Denies anginal pain, edema or pain of the lower extremities, or palpitations. GASTROINTESTINAL SYMPTOMS: Denies dysphagia, nausea, vomiting, diarrhea, abdominal pain, hematemesis, melena, or hematochezia. Denies symptoms of dysphagia or abnormal weight loss. GENITOURINARY SYMPTOMS: Denies dysuria, suprapubic pain, or hematuria. MUSCULOSKELETAL SYMPTOMS: Denies acute joint pain, redness or tenderness. SKIN: Reported no lesions or rashes. CENTRAL NERVOUS SYSTEM: Denies dizziness, headache, diplopia, or syncopal episodes. Remaining systems were reviewed with the patient and they were noted all negative. PAST MEDICAL HISTORY: Known with: 1. History of osteoporosis. 2. Congestive heart failure noted with bilateral pleural fluid during her admission in 2016, required bilateral thoracentesis at that time and also a bronchoscopy done for the possibility of pneumonia. 3. Basal cell cancer excision from the skin. 4. History of melanoma of the left lower extremity, excision first in 10/2014 and then further excision done in 06/2015. [place], [place] REPORT OF CONSULTATION NAME: JODY SCHREIBER UNIT #: [id number] ROOM: [facility] DOCTOR: VALENTINA DE LA CRUZ MDM BIRTHDATE: [birth year] 5. History of atrial fibrillation. 6. History of congestive heart failure; systolic and diastolic function at this time was unknown. PAST SURGICAL HISTORY: 1. Appendectomy. 2. Bladder suspension. 3. Hysterectomy. 4. Excision of the melanoma from the left lower extremity in 10/2014 and 06/2015. The patient did not receive any chemotherapy, immunotherapy or any radiation afterwards. 5. Bilateral thoracentesis that was done in 2016. 6. Therapeutic bronchoscopy in 2016. SOCIAL HISTORY: The patient stated she is , has 4 children, and lives at home. She worked in the [employer] for 24 years. There is no history of tobacco use or any alcohol use. She is a lifetime nonsmoker. HOME MEDICATIONS: Listed as amitriptyline, Eliquis, aspirin, Tessalon Perles, vitamin D, recent prescription of doxycycline and prednisone, ferrous sulfate, metoprolol tartrate, omeprazole, and MiraLax. CURRENT MEDICATIONS: Which are actively administered are noted as metoprolol tartrate, vitamin D, Protonix, vitamin B12, fish oil, Lipitor, aspirin, Eliquis, Solu-Medrol 40 mg b.i.d., albuterol sulfate 2.5 mg nebulizer q. four hours, Zithromax, IV Rocephin, Robitussin-AC, and other p.r.n. meds. DRUG ALLERGIES: NOTED ALLERGY TO IVP DYE. PHYSICAL EXAMINATION: GENERAL: This is a 78-year-old female patient who has been currently noted to be awake and alert, without any acute distress this morning of assessment. Height of 5 feet, weight of 164 pounds, BMI of 32. VITAL SIGNS: Temperature 102.8 degrees Fahrenheit, respiratory rate recorded as 18-20, heart rate 85-93, blood pressure 122/84-100/72. Pulse oxygen saturation recorded on room air as 94-97% saturation at rest. HEENT: Examination shows head is atraumatic. Eyes nonicterus. NECK: Supple. CARDIOVASCULAR: S1 and S2 audible. LUNGS: Decreased breaths in the lungs noted bilaterally, scattered wheezing and crackles of the lungs. ABDOMEN: Soft, nontender, with [id number] obesity. Bowel sounds present. EXTREMITIES: Noted with mild edema of the lower extremity. VISIBLE SKIN: No lesions or rashes. CENTRAL NERVOUS SYSTEM: Cranial nerves 2 through 12 intact. LABORATORY DATA: CMP that was done yesterday - BUN and creatinine noted as normal, the remaining CMP was normal as well as the LFTs except albumin of 3.0. BMP that was done on 12/21/2018 repeated again was noted with potassium 3.3, otherwise normal BMP. Lactic acid 1.2. CBC on 12/21/2018 - WBC count 12.9, [place], [place] REPORT OF CONSULTATION NAME: JODY SCHREIBER UNIT #: [id number] ROOM: [facility] DOCTOR: COLLEEN WEST MD,[facility] BIRTHDATE: [birth year] hemoglobin 9.8, hematocrit 30.7, platelet count 268,000. BMP that was done this morning - BUN normal, creatinine normal, glucose noted as 197. CBC this morning - WBC count normal, hemoglobin 8.2, platelet count is normal. Troponin 3 sets in the last 24 hours were normal results. DIAGNOSTIC DATA: Chest x-ray, which was done 1 view was reviewed and does not show any visible gross pulmonary infiltration, finding of congestive heart failure, pleural fluid or other findings. CT scan of the chest that was completed yesterday without contrast was reviewed personally, shows an area of apical fibrosis noted. In addition to that, small patchy infiltration noted nodular in the left lingula, right middle lobe medial subsegment, and posterior subsegment of the right upper lobe. There was no pleural effusion. Hilar structure assessment was noted as suboptimal for the lymph node because of lack of the IV contrast. In the mediastinum, the patient is noted with mild nonspecific lymph node enlargement. IMPRESSION: 1. The patient who has been currently admitted to the hospital noted with symptoms consistent with acute infection. Positive viral syndrome should be considered in the differential diagnosis versus atypical infection. 2. Acute exacerbation of bronchial asthma is also noted. Patchy infiltration is noted in the lungs with possibility of acute viral or bacterial pneumonia consideration. 3. Hoarseness is noted, secondary to acute laryngitis on this admission as well. 4. Mild fluid overload will be considered, peripheral edema as well. There is no evidence of any pleural effusion. 5. History of osteoporosis. 6. History of melanoma, which has been known, without any known metastasis in 2015, excised from the left lower extremity. 7. Nodular infiltration noted in the lungs at this time, need to be monitored until complete resolution. PLAN OF TREATMENT: Continue atypical coverage with Zithromax and use of IV Rocephin. Continue Solu-Medrol for current respiratory symptoms with bronchospasm related to current acute active infection. Ordered the viral panel with nasopharyngeal swab. Bronchodilator will be continued. Collect the sputum for Gram stain and culture if the patient is able to expectorate sputum. Close monitoring of respiratory status will be continued. A follow-up CT scan of the chest to be done in the near future to document the resolution of current nodular infiltrates. Other therapy plan of management with additional treatment changes will be made based on the progression of her illness. Obtain urine for Legionella antigen and strep antigen as well as part of the causative agent assessment for the current acute pneumonia. Because of the current nodular opacities, certainly the resolution of this infiltration should be considered likely to exclude any metastatic disease. [place], [place] REPORT OF CONSULTATION NAME: JODY SCHREIBER UNIT #: [id number] ROOM: [facility] DOCTOR: LYNN DE LA CRUZ MD BIRTHDATE: [birth year] LYNN MACIAS MD CM:CONSTR:REPORT OF CONSULTATION 1144 01/01/19 1055 interface
--- NOTE | ~2018-12-21 | EKG ---
[place], [place] ELECTROCARDIOGRAM REPORT NAME: JODY SCHREIBER UNIT #: [id number] ROOM: 415 DOCTOR: CHACHA DRAFT REPORT BIRTHDATE: [birth year] [facility] Test Date: 2018-12-21 Test Time: 22:29:00 Pat Name: JODY SCHREIBER Department: Room: [facility] 1 Gender: F [employer] Reader: Rafaela Doyle : 1940 Requested By: ALVARO KHALIL Order Number: [id number] Reading MD: Valorie Joseph Measurements Intervals [place] Rate: 89 P: 47 PA: 128 QRS: 26 QRSD: 84 T: 74 QT: 370 QTc: 451 Interpretive Statements Sinus rhythm Atrial premature complexes in couplets Low voltage, precordial leads Baseline wander in lead(s) V1 Electronically Signed On 12-22-2018 12:52:56 PDT by Valorie Joseph CM:EKGRPT:ELECTROCARDIOGRAM REPORT 1252 ALVARO BYNUM DRAFT REPORT ALVARO KHALIL DO
--- NOTE | ~2018-12-21 | PR ---
[place], [place] PROGRESS NOTE NAME: JODY SCHREIBER UNIT #: [id number] ROOM: 415 DOCTOR: RAYMON DELANEY DO BIRTHDATE: [birth year] DOS: 12/24/2018 PULMONARY PROGRESS NOTE SUBJECTIVE: The patient is resting in bed comfortably at this time. The patient states that she feels much better today. The patient states that she is not short of breath. The patient states that she has not been out of bed though and does not know if she would be able to go home. PHYSICAL EXAMINATION: GENERAL: The patient is in no acute distress. VITAL SIGNS: Temperature 98.1, pulse 88, respiratory rate 20, blood pressure is 124/54. The patient is 94% on room air. HEENT: Normocephalic, atraumatic. Eyes nonicteric. NECK: Supple, nontender, trachea midline. CARDIOVASCULAR: S1, S2 audible. LUNGS: No wheezes or crackles bilaterally. ABDOMEN: Soft, nontender, bowel sounds present. EXTREMITIES: No acute changes. NEUROLOGIC: No focal neurologic deficits. LABORATORY DATA: No labs or new imaging of significance today. ASSESSMENT: 1. Acute exacerbation of bronchial asthma, patchy nodular infiltration in the lung. 2. Acute laryngitis. 3. Pulmonary nodule, post-viral syndrome. PLAN: Continue current plan, antibiotics, bronchodilators, oxygen supplementation, steroids. Monitor respiratory status. Any changes will be based on progression of illness. Puneet Delaney DO [place], [place] PROGRESS NOTE NAME: JODY SCHREIBER UNIT #: [id number] ROOM: 415 DOCTOR: RAYMON DELANEY DO BIRTHDATE: [birth year] LYNN MACIAS MD CM:PNTRANS [id number] RAYMON DELANEY DO 12/25/18 1247 interface
--- NOTE | ~2018-12-21 | PR ---
[place], [place] PROGRESS NOTE NAME: JODY SCHREIBER UNIT #: [id number] ROOM: 415 DOCTOR: COLLEEN WEST MD,LYNN BIRTHDATE: [birth year] DOS: 12/25/2018 The patient independently seen and examined today [id number] encounter, history was confirmed. Physical examination performed. Labs reviewed. Note done by the medical concierge, was approved. SUBJECTIVE: The patient was noted comfortable at this time, resting comfortably in the bed this morning of assessment. She has been noted with reduction with coughing, also she has ambulated and doing better difficulty. OBJECTIVE: GENERAL: The patient was comfortably sitting on the bed this morning of assessment. VITAL SIGNS: Normal temperature, respiratory rate 20, heart rate 86, blood pressure 129/60. Pulse oxygen saturation on room air 98% saturation. HEENT: Head was atraumatic. Eyes nonicterus. NECK: Supple. CARDIOVASCULAR: S1, S2 audible. LUNGS: The patient without any wheeze or crackle at the present time. ABDOMEN: Soft, nontender. Bowel sounds present. EXTREMITIES: No new change. IMPRESSION: The patient with resolving acute tracheobronchitis with acute exacerbation of bronchial asthma with the patient. The hoarseness improved significantly. Nodular infiltration in the lungs as well as most likely the current acute infection. PLAN OF TREATMENT: The patient could be discharged home. The patient's oral medication and outpatient followup to be established. Referred to repeat a CT scan of the chest in about 3 months' to document the resolution of current pulmonary infiltration or other abnormalities, which appear to be nodular. LYNN MACIAS MD CM:PNTRANS 1234 T: LYNN WEST MD 12/27/18 1527 ANDIE FISHER.R
--- NOTE | ~2018-12-21 | PR ---
[place], [place] PROGRESS NOTE NAME: JODY SCHREIBER UNIT #: [id number] ROOM: 415 DOCTOR: COLLEEN WEST MD,LYNN BIRTHDATE: [birth year] DOS: 12/24/2018 PULMONARY PROGRESS NOTE The patient is independently seen and examined in [id number] encounter, history was confirmed, labs were reviewed. Note done by the medical insurance biller was approved. Assessment and management for today's visit was personally completed. SUBJECTIVE: The patient has been lying in the bed. The patient stated that she has not ambulated since the hospitalization. Denies symptoms of chest pain, fever, or chills. Denies symptoms of hemoptysis. Hoarseness has been improving. Coughing is also resolving. OBJECTIVE: VITAL SIGNS: This morning, normal temperature, respiratory rate 20, heart rate 88, blood pressure 124/58. Pulse oxygen saturation recorded as 94% on room air. HEENT: Examination shows head is atraumatic. Eyes nonicterus. NECK: Supple. CARDIOVASCULAR: S1 and S2 audible. LUNGS: Noted without any wheezing or crackles. ABDOMEN: Soft, nontender. Bowel sounds present. EXTREMITIES: No new change. IMPRESSION: Stable respiratory status noted at the present time - responding to the treatment, acute laryngitis, acute bronchitis, and other problems. PLAN OF TREATMENT: Ambulation is encouraged starting today. Watch the patient next 24 hours, possible discharge on oral antibiotics. Pulmonary followup will be established to re-assess the resolution of previously noted infiltration of the lungs. LYNN MACIAS MD CM:PNTRANS 1246 1429 LYNN WEST MD 12/24/18 1428 interface
[~2018-12-21 18:15] MED LIST changes: +TESSALON PERLE100 M1 PO; +VIBRAMYCIN100 MG PO
[2018-12-21 18:16] VITALS: BP 112/80
[2018-12-21 18:43] LABS: HEMATOCRIT 30.7 % (37.0-47.0); HEMOGLOBIN 9.8 g/dl (12.0-16.0); MEAN CELL VOLUME 86.7 fl (81.0-99.0); MEAN CORPUSCULAR HGB 27.7 pg (27.0-31.0); MEAN CORPUSCULAR HGB CONC 31.9 g/dl (33.0-37.0); PLATELET COUNT AUTOMATED 268 10*3/uL (130-400); RED BLOOD COUNT 3.54 10*6/uL (4.10-5.10); RED CELL DISTRI WIDTH 17.2 % (0-14.5); WHITE BLOOD COUNT 12.9 10*3/uL (4.8-10.8)
[2018-12-21 18:56] LABS: BUN 8 mg/dl (7-24); CHLORIDE 103 mmol/L (98-107); CREATININE 0.78 mg/dL (0.55-1.02); POTASSIUM 3.3 mmol/L (3.5-5.1); SODIUM 140 mmol/L (136-145)
[2018-12-21 19:02] LABS: BASOPHILS 1 % (0-1); TOTAL CELLS COUNTED 100 #CELLS
[2018-12-21 19:03] LABS: BURR CELLS FEW; PLATELET SUFFICIENCY NORMAL (NORMAL)
--- NOTE | 2018-12-21 19:07 | NUR ---
JEFFERY DAI NOTIFIED OF MULTIPLE ATTEMPTS FOR IV ACCESS WITHOUT SUCCESS.
[2018-12-21 19:09] VITALS: BP 112/80
[2018-12-21 21:11] VITALS: BP 122/84
[2018-12-21 21:25] VITALS: BP 110/50
--- NOTE | 2018-12-21 21:25 | NUR ---
A 78, admitted to , under the services of MARIANO Pedroza DO with a diagnosis of PNEUMONIA. Chief complaint is PNEUMONITIS. Patient arrived via stretcher from ER. Monitor applied. Initial assessment completed. Vital signs taken and recorded. MARIANO PEDROZA DO notified of admission to the unit. Orders received. See assessment for past medical history, medications and allergies. Patient and/or family oriented to unit. [address] visitation policy reviewed. Clothing/patient valuable form completed. [employer]
--- NOTE | 2018-12-22 00:40 | NUR ---
PT COMPLAINING OF RELENTLESS COUGHING. SPOKE WITH DR KHALIL AND AWAITING ORDERS. NO NEW ORDERS AT THIS TIME.
--- NOTE | 2018-12-22 02:00 | NUR ---
SPOKE WITH DR KHALIL REGARDING PTS WISHES REGARDING HER CODE STATUS. PT STATES THAT SHE WOULD "NOT LIKE CPR OR LIFE SAVING MEASURES AND ONLY WANTS TO BE KEPT COMFORTABLE". SHE MENTIONED HAVING HER STATUS CHANGED TO DNR-CC. DR KHALIL SAID HE WILL BE UP TO TALK WITH THE PT SOON HE CAN.
[2018-12-22 04:15] LABS: HEMATOCRIT 27.9 % (37.0-47.0); HEMOGLOBIN 8.7 g/dl (12.0-16.0); MEAN CELL VOLUME 87.7 fl (81.0-99.0); MEAN CORPUSCULAR HGB 27.4 pg (27.0-31.0); MEAN CORPUSCULAR HGB CONC 31.2 g/dl (33.0-37.0); MEAN PLATELET VOLUME 9.5 fl (9.6-12.3); PLATELET COUNT AUTOMATED 224 10*3/uL (130-400); RED BLOOD COUNT 3.18 10*6/uL (4.10-5.10); RED CELL DISTRI WIDTH 17.4 % (0-14.5); WHITE BLOOD COUNT 9.2 10*3/uL (4.8-10.8)
[2018-12-22 04:27] LABS: BUN 8 mg/dl (7-24); CHLORIDE 111 mmol/L (98-107); CREATININE 0.67 mg/dL (0.55-1.02); IRON 18 ug/dL (50-170); PHOSPHOROUS 1.8 mg/dL (2.5-4.9); POTASSIUM 3.5 mmol/L (3.5-5.1); SODIUM 142 mmol/L (136-145); TOTAL IRON BINDING CAPACITY 300 ug/dl (250-450)
[2018-12-22 04:35] LABS: BASOPHILS 1 % (0-1); PLATELET SUFFICIENCY NORMAL (NORMAL); TOTAL CELLS COUNTED 100 #CELLS
[2018-12-22 04:36] LABS: MICROCYTOSIS SLIGHT
--- NOTE | 2018-12-22 07:48 | NUR ---
NOTIFIED OF CONSULT.
[2018-12-22 08:00] VITALS: BP 100/72
--- NOTE | 2018-12-22 08:30 | NUR ---
FLUTTER NOT STARTED AT THIS TIME, TEMPORARILY OUT OF STOCK.
[2018-12-22] MEDS ORDERED: VITAMIN B1250 MCG PO (09:51)
[2018-12-22] MEDS ORDERED: VITAMIN D31000 UNI1 PO (09:51)
[2018-12-22] MEDS ORDERED: LIPITOR40 MG PO (09:51)
[2018-12-22] MEDS ORDERED: PANTOPRAZOLE SO40 MG PO (09:52)
[2018-12-22] MEDS ORDERED: MIRALAX119 GM PO (09:53)
[2018-12-22] MEDS ORDERED: SENNA LAX8.6 M1 PO (09:53)
[2018-12-22] MEDS ORDERED: FISH OIL CONC1000 M1 PO (09:53)
[2018-12-22] MEDS ORDERED: METOPROLOL SUCC50 M1 PO (09:54)
--- NOTE | 2018-12-22 09:56 | NUR ---
MED REC UPDATED PER POLICY.
--- NOTE | 2018-12-22 10:03 | NUR ---
NOTIFIED REGARDING UPDATED MED REC.
[2018-12-22 11:55] LABS: BILIRUBIN NEGATIVE (NEGATIVE); BLOOD TRACE-INTACT (NEGATIVE); CLARITY SL CLOUDY (CLEAR); COLOR YELLOW (YELLOW); GLUCOSE TRACE (NEGATIVE); KETONE NEGATIVE (NEGATIVE); LEUKO ESTERASE TRACE (NEGATIVE); NITRITE NEGATIVE (NEGATIVE); SPECIFIC GRAVITY 1.025 (1.005-1.030); UROBILINOGEN 0.2 E.U./dl (0.2-1.0)
[2018-12-22 12:00] VITALS: BP 126/59
[2018-12-22 12:19] LABS: WBC TNTC wbc/hpf (0-5)
[2018-12-22 12:20] LABS: BACTERIA 2+; EPITHELIAL CELLS 15-20; MUCOUS 2+
--- NOTE | 2018-12-22 14:27 | NUR ---
NOTIFIED REGARDING IV ATTEMPTS UNSUCCESSFUL IN BOTH ARMS BY THIS NURSE AND AN ICU NURSE. PATIENT CURRENTLY HAS IV ACCESS IN HER FOOT. WILL CONTINUE TO MONITOR.
[2018-12-22 16:00] VITALS: BP 132/45
[2018-12-22 20:00] VITALS: BP 110/32
--- NOTE | 2018-12-22 20:03 | NUR ---
24 HOUR CHART CHECK COMPLETE.
--- NOTE | 2018-12-22 21:00 | NUR ---
DR OBRIEN REQUESTED TRYING TO GET A NEW IV ON THE PT SINCE SHE IS REHYDRATED. WHEN I MENTIONED THIS TO THE PT SHE REFUSED SHE HAD BEEN "POKED ALL DAY" AND "DOESN'T WANT TO MESS WITH IT RIGHT NOW". I WILL CONTINUE TO ASSESS THE SITE IN HER RIGHT FOOT. OF NOW, I SEE NO SIGNS OF COMPLICATIONS. IV FLUSHES WELL, IS NONTENDER, AND HAS NO REDNESS.
--- NOTE | 2018-12-22 21:33 | NUR ---
PRN TYLENOL ADMINISTERED PRESCRIBED FOR 5/10 RIB CAGE PAIN STEMMING FROM HARSH COUGH. WILL CONTINUE TO MONITOR THE PT AND REASSESS IN AN HOUR.
--- NOTE | 2018-12-22 22:30 | NUR ---
PT RESTING COMFORTABLY IN BED. NO SIGNS OF DISCOMFORT OR DISTRESS. WILL CONTINUE TO MONITOR THE PT. CALL LIGHT LAYING ON BED BESIDE HER.
[2018-12-23] VITALS: BP 122/58
[2018-12-23 06:10] LABS: HEMATOCRIT 27.4 % (37.0-47.0); HEMOGLOBIN 8.5 g/dl (12.0-16.0); MEAN CELL VOLUME 88.4 fl (81.0-99.0); MEAN CORPUSCULAR HGB 27.4 pg (27.0-31.0); MEAN PLATELET VOLUME 10.1 fl (9.6-12.3); PLATELET COUNT AUTOMATED 258 10*3/uL (130-400); WHITE BLOOD COUNT 19.7 10*3/uL (4.8-10.8)
[2018-12-23 06:35] LABS: BURR CELLS FEW; PLATELET SUFFICIENCY NORMAL (NORMAL); TOTAL CELLS COUNTED 100 #CELLS
[2018-12-23 06:36] LABS: BUN 12 mg/dl (7-24); CHLORIDE 111 mmol/L (98-107); CREATININE 0.64 mg/dL (0.55-1.02); PHOSPHOROUS 2.1 mg/dL (2.5-4.9); POTASSIUM 3.6 mmol/L (3.5-5.1); SODIUM 143 mmol/L (136-145)
[2018-12-23 08:00] VITALS: BP 110/62
--- NOTE | 2018-12-23 08:37 | NUR ---
DISCUSSED WITH PT NEED FOR IV SITE IN AN ARM RATHER THAN FOOT. PT STATES UNDERSTANDING BUT SHE STATES SHE WOULD LIKE TO WAIT AND SPEAK TO THE DR SHE HAS BEEN "STUCK 9 TIMES" AND THE ONE IN HER FOOT IS WORKING "FINE" SITE ASYMPTOMATIC.
--- NOTE | 2018-12-23 09:00 | NUR ---
Pie Baker in to talk to patient. Patient states lives at home with alone. There are few steps in the home. Physician: flor mackenzie [facility]: [facility]: none Patient's level of ADLs: INDEPENDENT Patient has working utilities: all working DME: none Follow-up physician's appointment after d/c: will be made by hospitalist nurse director upon discharge Does patient want to access PORTAL?: no Discharge plan discussed with patient, patient lives at home alone, she is independent in adls and ambulation, drives, patient states she has family to help her if needed. discussed with her a short term assisted for rehab prior to going back home, patient stated she didn't feel she needed a short term skilled but if she did she would want to go to [facility]. she stated her plan at this time is to go home and she would agree with home health, given choice of companies, she chose [employer], will notify [facility] when patient is medically stable for discharge. OK PAYNE
[2018-12-23 12:00] VITALS: BP 100/60
[2018-12-23 16:00] VITALS: BP 125/42
--- NOTE | 2018-12-23 17:37 | NUR ---
1639 PT INSTRUCTED ON USE OF FLUTTER. PT DEMONSTRATED PROPER TECHNIQUE. PT INSTRUCTED OT USE Q 1-2 HRS X 10 BREATHS. KRIS NEGRO AT THIS TIME.
[2018-12-23 20:00] VITALS: BP 146/50
[2018-12-24] VITALS: BP 127/47
--- NOTE | 2018-12-24 03:32 | NUR ---
PRN ROBITUSSIN GIVEN FOR HACKING COUGH. CALL LIGHT WITHIN REACH, WILL MONITOR
[2018-12-24 08:00] VITALS: BP 124/58
--- NOTE | 2018-12-24 09:00 | NUR ---
case management visits with patient, patient will be going home when able and will have [facility], no other needs at this time
[2018-12-24 12:00] VITALS: BP 114/68
[2018-12-24 16:00] VITALS: BP 119/44
[2018-12-24 20:00] VITALS: BP 127/54
--- NOTE | 2018-12-24 20:00 | NUR ---
AAOX3 SITTING UP ON SIDE OF THE BED. HEP LOCK INTACT TO LEFT ANTECUBITAL; SITE ASYMPTOMATIC. LUNGS CLEAR AT THIS TIME WITH AN OCCASIONAL DRY COUGH NOTED. PULSE OX 99% ON ROOM AIR. PT. VOICES NO C/O AT THIS TIME; NO DISTRESS NOTED. CALL LIGHT WITHIN REACH. WILL CONTINUE TO MONITOR.
--- NOTE | 2018-12-24 20:02 | NUR ---
MEDICATED WITH ROBITUSSIN FOR C/O COUGH.
[2018-12-25] VITALS: BP 132/62
--- NOTE | 2018-12-25 | NUR ---
RESTING IN BED WITH EYES CLOSED. NO COUGH NOTED AT THIS TIME. COUGH MEDICATION GIVEN EARLIER APPARENTLY EFFECTIVE. CALL LIGHT REMAINS WITHIN REACH.
--- NOTE | 2018-12-25 03:27 | NUR ---
MEDICATED WITH ROBITUSSIN FOR DRY HACKY COUGH.
--- NOTE | 2018-12-25 06:00 | NUR ---
PT. RESTING IN BED WITH EYES CLOSED. NO COUGH HEARD AT THIS TIME. CALL LIGHT WITHIN REACH.
[2018-12-25 06:38] LABS: HEMATOCRIT 27.8 % (37.0-47.0); HEMOGLOBIN 8.5 g/dl (12.0-16.0); MEAN CELL VOLUME 89.1 fl (81.0-99.0); MEAN CORPUSCULAR HGB 27.2 pg (27.0-31.0); MEAN CORPUSCULAR HGB CONC 30.6 g/dl (33.0-37.0); MEAN PLATELET VOLUME 9.9 fl (9.6-12.3); NUCLEATED RED BLOOD CELL 0.1 % (0.0-0.0); PLATELET COUNT AUTOMATED 280 10*3/uL (130-400); RED BLOOD COUNT 3.12 10*6/uL (4.10-5.10); RED CELL DISTRI WIDTH 18.1 % (0-14.5); WHITE BLOOD COUNT 17.2 10*3/uL (4.8-10.8)
[2018-12-25 07:04] LABS: TOTAL CELLS COUNTED 100 #CELLS
[2018-12-25 07:05] LABS: BURR CELLS FEW; OVALOCYTES FEW; PLATELET SUFFICIENCY NORMAL (NORMAL)
[2018-12-25 08:00] VITALS: BP 124/58
--- NOTE | 2018-12-25 09:00 | NUR ---
case management visits with patient, patient will be going home when able and will have [facility], case management will notify [facility] when patient is medically stable for discharge
[2018-12-25 12:00] VITALS: BP 129/60
[2018-12-25] MEDS ORDERED: PREDNISONE10 MG PO (13:19)
[2018-12-25] MEDS ORDERED: FEOSOL325 MG PO (13:19)
[2018-12-25] MEDS ORDERED: VIBRAMYCIN100 MG PO (13:19)
--- NOTE | 2018-12-25 13:47 | NUR ---
PHYSICAL THERAPY PAtient reports she has no PT needs and is being discharged this date. PAtient reports she is (I) ambulating with IV pole. D/c PT at this time as patient requests. Thank you for this referral. Agustina Beebe,PT
--- NOTE | 2018-12-25 13:47 | NUR ---
Patient reports that she is independent in ADLs and mobility with IV pole and does not feel she needs any therapy at this time. Discharge OT order. Vicky Edwards OTR/l
--- NOTE | 2018-12-25 15:37 | NUR ---
DISCHARGED TO HOME WITH BELONGINGS, PRESCRIPTIONS ALREADY PICKED UP BY DAUGHTERS.
[2018-12-29 01:03] LABS: ADENOVIRUS Negative (Negative); INFLUENZA A Negative (Negative); INFLUENZA B Negative (Negative); METAPNEUMOVIRUS Negative (Negative); PARAINFLUENZA 1 Negative (Negative); PARAINFLUENZA 2 Negative (Negative); PARAINFLUENZA 3 Negative (Negative); RHINOVIRUS Negative (Negative); RSV A Negative (Negative); RSV B Negative (Negative)
== END 2018-12-25 15:41 | disposition home health service (06) | DRG 871 ==
LOC: ED 18:15 → EDHOLD 20:22 → 4E 20:22
PROVIDERS: Internal Medicine; Internal Medicine Critical Care Medicine; Nurse Practitioner; Student in an Organized Health Care Education/Training Program; ADMIT Internal Medicine
DX: A41.9 Sepsis, unspecified organism (principal); J69.0 Pneumonitis due to inhalation of food and vomit; J45.901 Unspecified asthma with (acute) exacerbation; J20.9 Acute bronchitis, unspecified; E87.6 Hypokalemia; R73.9 Hyperglycemia, unspecified; C44.91 Basal cell carcinoma of skin, unspecified; J04.0 Acute laryngitis; R91.1 Solitary pulmonary nodule; B34.9 Viral infection, unspecified; I50.9 Heart failure, unspecified; M81.0 Age-related osteoporosis without current pathological fracture; I48.2 Chronic atrial fibrillation; D50.9 Iron deficiency anemia, unspecified; Z91.041 Radiographic dye allergy status; Z90.49 Acquired absence of other specified parts of digestive tract; Z90.710 Acquired absence of both cervix and uterus; Z80.8 Family history of malignant neoplasm of other organs or systems; Z82.5 Family history of asthma and other chronic lower respiratory diseases; Z79.82 Long term (current) use of aspirin; Z79.899 Other long term (current) drug therapy

== ENCOUNTER → 2019-02-24 | Outpatient (CLI) | payer OTHER ==
[~2019-02-24] MED LIST changes: +FEOSOL325 MG PO; +FISH OIL CONC1000 M1 PO; +LIPITOR40 MG PO; +METOPROLOL SUCC50 M1 PO; +MIRALAX119 GM PO; +PANTOPRAZOLE SO40 MG PO; +SENNA LAX8.6 M1 PO; +VITAMIN B1250 MCG PO; +VITAMIN D31000 UNI1 PO
[2019-02-24 08:55] LABS: BASO # 0.1 10*3/uL (0.0-0.1); BASO % 0.9 % (0.0-1.0); EOS # 0.5 10*3/uL (0.0-0.4); EOS % 5.4 % (1.0-4.0); HEMATOCRIT 35.3 % (37.0-47.0); HEMOGLOBIN 11.2 g/dl (12.0-16.0); LYMPH # 2.3 10*3/uL (1.3-4.4); LYMPH % 23.1 % (27.0-41.0); MEAN CELL VOLUME 95.9 fl (81.0-99.0); MEAN CORPUSCULAR HGB 30.4 pg (27.0-31.0); MEAN CORPUSCULAR HGB CONC 31.7 g/dl (33.0-37.0); MEAN PLATELET VOLUME 9.2 fl (9.6-12.3); MONO # 0.8 10*3/uL (0.1-1.0); MONO % 7.8 % (3.0-9.0); NEUT # 6.1 10*3/uL (2.3-7.9); NEUT % 62.5 % (47.0-73.0); PLATELET COUNT AUTOMATED 276 10*3/uL (130-400); RED BLOOD COUNT 3.68 10*6/uL (4.10-5.10); RED CELL DISTRI WIDTH 17.4 % (0-14.5); WHITE BLOOD COUNT 9.8 10*3/uL (4.8-10.8)
[2019-02-24 09:20] LABS: IRON 55 ug/dL (50-170); TOTAL IRON BINDING CAPACITY 341 ug/dl (250-450)
== END | disposition home or self-care (01) ==
LOC: LAB 08:31
PROVIDERS: Internal Medicine
DX: I73.9 Peripheral vascular disease, unspecified (principal); K27.9 Peptic ulcer, site unspecified, unspecified as acute or chronic, without hemorrhage or perforation

== ENCOUNTER → 2019-04-08 | Outpatient (CLI) | payer OTHER ==
[2019-04-08 09:34] LABS: BASO # 0.1 10*3/uL (0.0-0.1); BASO % 1.1 % (0.0-1.0); EOS # 0.6 10*3/uL (0.0-0.4); EOS % 6.1 % (1.0-4.0); HEMATOCRIT 35.1 % (37.0-47.0); HEMOGLOBIN 11.3 g/dl (12.0-16.0); LYMPH # 2.2 10*3/uL (1.3-4.4); LYMPH % 22.4 % (27.0-41.0); MEAN CELL VOLUME 94.4 fl (81.0-99.0); MEAN CORPUSCULAR HGB 30.4 pg (27.0-31.0); MEAN CORPUSCULAR HGB CONC 32.2 g/dl (33.0-37.0); MEAN PLATELET VOLUME 9.7 fl (9.6-12.3); MONO # 0.8 10*3/uL (0.1-1.0); MONO % 8.6 % (3.0-9.0); NEUT % 61.5 % (47.0-73.0); PLATELET COUNT AUTOMATED 281 10*3/uL (130-400); RED BLOOD COUNT 3.72 10*6/uL (4.10-5.10); RED CELL DISTRI WIDTH 14.4 % (0-14.5); WHITE BLOOD COUNT 9.7 10*3/uL (4.8-10.8)
[2019-04-08 09:55] LABS: ALBUMIN 3.4 gm/dl (3.1-4.5); BUN 11 mg/dl (7-24); CHLORIDE 107 mmol/L (98-107); CREATININE 0.67 mg/dL (0.55-1.02); POTASSIUM 4.1 mmol/L (3.5-5.1); SGOT/AST 17 IU/L (3-35); SGPT/ALT 17 U/L (12-78); SODIUM 140 mmol/L (136-145); TOTAL PROTEIN 6.9 gm/dL (6.4-8.2)
[2019-04-08 09:56] LABS: ALKALINE PHOSPHATASE 107 U/L (45-117)
== END | disposition home or self-care (01) ==
LOC: LAB 08:29
PROVIDERS: Internal Medicine
DX: D64.9 Anemia, unspecified (principal); R10.9 Unspecified abdominal pain

== ENCOUNTER → 2019-05-21 | Outpatient (CLI) | payer OTHER ==
--- NOTE | ~2019-05-21 | SLPPOC ---
[place], [place] LEGAL ADMINISTRATOR PLAN OF CARE NAME: JODY SCHREIBER UNIT #: [id number] ROOM: DOCTOR: WES MONTOYA Patient Name: JODY SCHREIBER Date: 05/21/2019 Patient Date of : 1940 [facility] Start of Care: 05/21/2019 Reason for Treatment: RAD/SH Visits since start of care: 1 Primary Care Physician: HERSON SEGAL Referring Physician: WES MONTOYA Speech-Language Pathology Initial Evaluation Plan of Care Reason for Visit RAD/SH Arrival Information Subjective Initial evaluation completed to generate medical record. Refer to [facility] for further information. Medical History Past Medical History Therapist Signature(s) Signed By: Carolina Nunes State License #: [id number] 05/21/2019, 2:30 PM Referring Physician Signature I certify the need for these services furnished under this plan of treatment and while under my care. WES MONTOYA Date/Time CM:SLPPOC 1431 1431 [facility]
--- NOTE | ~2019-05-21 | SLPIE ---
[place], [place] FOUNDING PARTNER INITIAL EVALUATION NAME: JODY SCHREIBER UNIT #: [id number] ROOM: DOCTOR: WES MONTOYA Patient Name: JODY SCHREIBER Date: 05/21/2019 Patient Date of : 1940 [facility] Start of Care: 05/21/2019 Reason for Treatment: RAD/SH Primary Care Physician: HERSON SEGAL Referring Physician: WES MONTOYA Speech-Language Pathology Initial Evaluation Reason for Visit RAD/SH Arrival Information Subjective Initial evaluation completed to generate medical record. Refer to [employer] for further information. Medical History Past Medical History [facility] Visit Start Time 1:30 PM Visit End Time 2:30 PM Visit Duration 60 minutes Procedures CPT [place] Code Intervention Modifier Minutes Units [id number] MOTION FLUOROSCOPY/SWALLOW 60 1 36463 Total Timed Minutes 0 Total Treatment Minutes 60 Therapist Signature(s) Signed By: Carolina Nunes State License #: [id number] 05/21/2019, 2:30 PM CM:FAHAD 1431 1431 [facility]
--- NOTE | ~2019-05-21 | PROC NOTE ---
[place], [place] PROCEDURE NOTE NAME: JODY SCHREIBER UNIT #: [id number] ROOM: DOCTOR: EARNESTINE GUZMÁN BIRTHDATE: [birth year] DOS: 05/21/2019 MODIFIED BARIUM SWALLOW ORDERING PHYSICIAN: Bin Major DO. RADIOLOGIST: Dr. Prince. BACKGROUND INFORMATION: The patient is a 78-year-old female, who was seen for an outpatient modified barium swallow. This assessment was completed to view the pharyngeal phase of the swallow. The patient was alert and cooperative and reported choking easily on food, liquid, and even saliva. She reported undergoing esophageal dilation last week and stated that she has had this procedure completed about every 3 months for the past few years. The patient is known to this department, as she has had prior services through inpatient and home health due to longstanding difficulties. The patient currently receives a regular diet and thin liquid. For today's assessment, respiratory status was within normal limits. Oral peripheral examination revealed presence of upper and lower denture with adequate fit reported. Lingual, labial, and buccal skills were within normal limits in terms of strength, range of motion, and coordination. The patient was able to volitionally cough and swallow. A prior modified barium swallow was completed on this patient, 12/22/2016. At that time, swallowing skills were within functional limits. She was recommended a regular diet and no followup treatment was warranted. METHODS AND MATERIALS USED FOR THE EXAM: The patient was positioned in the lateral plane and the exam was viewed under fluoroscopy. The patient was presented with a variety of consistencies to assess swallowing skills including applesauce mixed with barium presented in half teaspoon amount, barium-coated sandwich given in bite size piece, and thin liquid barium taken by cup in her regular sip size amount. ORAL PHASE: Unremarkable. PHARYNGEAL PHASE: Unremarkable. ESOPHAGEAL PHASE: This phase of a swallow was not formally assessed during this exam. IMPRESSIONS AND RECOMMENDATIONS: Based upon assessment results, this 78-year-old patient presents with oral and pharyngeal swallowing skills within normal limits across all consistencies. No penetration, aspiration, or residue was observed. Recommend patient remain on regular diet and use safe swallow strategies such as small bites and sips, chewing thoroughly, and alternating liquid and solid. The patient was educated on results and recommendations and verbalized the understanding and agreement of information provided. No followup treatment is warranted at this time, as swallowing skills are within normal limits. Thank you very much for this referral. Should you have any questions regarding [place], [place] PROCEDURE NOTE NAME: JODY SCHREIBER UNIT #: [id number] ROOM: DOCTOR: EARNESTINE GUZMÁN BIRTHDATE: [birth year] this patient, please contact the speech pathologist at [phone]. EARNESTINE GUZMÁN CM:PROCNOTE:PROCEDURE NOTE [id number] EARNESTINE GUZMÁN
--- NOTE | ~2019-05-21 | SHMRC ---
[place], [place] [facility] NAME: JODY SCHREIBER UNIT #: [id number] ROOM: DOCTOR: WES MONTOYA Patient Name: JODY SCHREIBER Date: 05/21/2019 Patient Number: [id number] Treating Therapist:Carolina Nunes Patient Date of : 1940 Location: [facility] Patient Reason for Visit RAD/SH Electronic Signature(s) Signed By: Date: Carolina Nunes 05/21/2019 14:30:53 Entered By: Carolina Nunes on 05/21/2019 14:28:16 Arrival Information Patient Name: JODY SCHREIBER Date: 05/21/2019 Patient Number: [id number] Treating Therapist:Carolina Nunes Patient Date of : 1940 Location: [facility] Patient Subjective Initial evaluation completed to generate medical record. [facility]. Electronic Signature(s) Signed By: Date: Carolina Nunes 05/21/2019 14:30:53 Entered By: Carolina Nunes on 05/21/2019 14:28:16 Medical History Patient Name: JODY SCHREIBER Date: 05/21/2019 Patient Number: [id number] Treating Therapist:Carolina Nunes Patient Date of : 1940 Location: [facility] Patient Past Medical History Electronic Signature(s) Signed By: Date: Carolina Nunes 05/21/2019 14:30:53 Entered By: Carolina Nunes on 05/21/2019 14:28:16 Allergy List Patient Name: JODY SCHREIBER. Date: 05/21/2019 Patient Number: [id number] Treating Therapist:Carolina Nunes Patient Date of : 1940 Location: [facility] Patient Electronic Signature(s) Signed By: Date: Carolina Nunes 05/21/2019 14:30:53 Entered By: Carolina Nunes on 05/21/2019 14:28:16 Arrival Information Patient Name: JODY SCHREIBER Date: 05/21/2019 Patient Number: [id number] Treating Therapist:Carolina Nunes Patient Date of : 1940 Location: [facility] Patient Subjective Initial evaluation completed to generate medical record. Refer to [facility] for further information. Electronic Signature(s) [place], [place] [facility] NAME: JODY SCHREIBER UNIT #: [id number] ROOM: DOCTOR: WES MONTOYA Signed By: Date: Carolina Nunes 05/21/2019 14:30:53 Entered By: Carolina Nunes on 05/21/2019 14:28:16 SuperBill Patient Name: JODY SCHREIBER. Date: 05/21/2019 Patient Number: [id number] Treating Therapist:Carolina Nunes Patient Date of : 1940 Location: [facility] Patient Visit Start Time 1:30 PM Visit End Time 2:30 PM Visit Duration 60 minutes Procedures CPT [place] Code Intervention Modifier Minutes Units [id number] MOTION FLUOROSCOPY/SWALLOW 60 1 Total Timed Minutes 0 Total Treatment Minutes 60 Electronic Signature(s) Signed By: Date: Carolina Nunes 05/21/2019 14:30:53 Entered By: Carolina Nunes on 05/21/2019 14:29:29 Chief Complaint Patient Name: JODY SCHREIBER. Date: 05/21/2019 Patient Number: [id number] Treating Therapist:Carolina Nunes Patient Date of : 1940 Location: [facility] Patient Reason for Visit RAD/SH Electronic Signature(s) Signed By: Date: Carolina Nunes 05/21/2019 14:30:53 Entered By: Carolina Nunes on 05/21/2019 14:28:16 Medical History Patient Name: JODY SCHREIBER. Date: 05/21/2019 Patient Number: [id number] Treating Therapist:Carolina Nunes Patient Date of : 1940 Location: [facility] Patient Past Medical History Electronic Signature(s) Signed By: Date: Carolian Nunes 05/21/2019 14:30:53 Entered By: Carolina Nunes on 05/21/2019 14:28:16 Allergy List Patient Name: JODY SCHREIBER Date: 05/21/2019 Patient Number: [id number] Treating Therapist:Carolina Nunes Patient Date of : 1940 [facility] Patient Electronic Signature(s) Signed By: Date: [place], [place] [facility] NAME: JODY SCHREIBER UNIT #: [id number] ROOM: DOCTOR: WES MONTOYA Maryann 05/21/2019 14:30:53 Entered By: Carolina Nunes on 05/21/2019 14:28:16 CM:BONIFACIO 1431 1431 IS THERAPY [facility]
== END | disposition home or self-care (01) ==
LOC: RAD/SH 12:54
DX: R13.10 Dysphagia, unspecified (principal); R09.89 Other specified symptoms and signs involving the circulatory and respiratory systems

== ENCOUNTER → 2019-07-28 | Outpatient (CLI) | payer OTHER | END | disposition home or self-care (01) | LOC: CT 10:44 | DX: R91.8 Other nonspecific abnormal finding of lung field (principal); J98.11 Atelectasis ==

== ENCOUNTER → 2020-01-21 | Outpatient (CLI) | payer OTHER | END | disposition home or self-care (01) | LOC: RESCLI 00:40 | DX: I48.20 Chronic atrial fibrillation, unspecified (principal); F32.9 Major depressive disorder, single episode, unspecified; I10 Essential (primary) hypertension; E78.00 Pure hypercholesterolemia, unspecified; M54.5 Low back pain; M15.0 Primary generalized (osteo)arthritis; M81.0 Age-related osteoporosis without current pathological fracture; N19 Unspecified kidney failure; R13.12 Dysphagia, oropharyngeal phase; D50.8 Other iron deficiency anemias; J30.1 Allergic rhinitis due to pollen; D64.9 Anemia, unspecified; E55.9 Vitamin D deficiency, unspecified; K21.9 Gastro-esophageal reflux disease without esophagitis; Z79.899 Other long term (current) drug therapy; Z98.890 Other specified postprocedural states; Z88.8 Allergy status to other drugs, medicaments and biological substances ==

== ENCOUNTER → 2020-01-27 | Outpatient (CLI) | payer OTHER ==
[2020-01-27 09:58] LABS: BASO # 0.1 10*3/uL (0.0-0.1); BASO % 1.2 % (0.0-1.0); EOS # 0.4 10*3/uL (0.0-0.4); EOS % 4.7 % (1.0-4.0); HEMATOCRIT 34.1 % (37.0-47.0); LYMPH % 23.7 % (27.0-41.0); MEAN CELL VOLUME 93.2 fl (81.0-99.0); MEAN CORPUSCULAR HGB 29.8 pg (27.0-31.0); MEAN PLATELET VOLUME 9.2 fl (9.6-12.3); MONO # 0.6 10*3/uL (0.1-1.0); MONO % 7.1 % (3.0-9.0); NEUT # 5.4 10*3/uL (2.3-7.9); NEUT % 63.1 % (47.0-73.0); PLATELET COUNT AUTOMATED 279 10*3/uL (130-400); RED BLOOD COUNT 3.66 10*6/uL (4.10-5.10); RED CELL DISTRI WIDTH 15.3 % (0-14.5); WHITE BLOOD COUNT 8.6 10*3/uL (4.8-10.8)
[2020-01-27 10:14] LABS: ALBUMIN 3.5 gm/dl (3.1-4.5); ALKALINE PHOSPHATASE 106 U/L (45-117); BUN 13 mg/dl (7-24); CHLORIDE 110 mmol/L (98-107); CHOLESTEROL 150 mg/dL (<200); HDL CHOLESTEROL 56 mg/dl (40-60); LDL CHOLESTEROL 76 mg/dL (9-159); POTASSIUM 4.2 mmol/L (3.5-5.1); SGOT/AST 28 IU/L (3-35); SGPT/ALT 22 U/L (12-78); SODIUM 141 mmol/L (136-145); TOTAL PROTEIN 7.1 gm/dL (6.4-8.2); TRIGLYCERIDES 92 mg/dl (<150); VLDL CHOLESTEROL 18 mg/dL (6-40)
== END | disposition home or self-care (01) ==
LOC: LAB 09:28 → CT 10:00
PROVIDERS: Internal Medicine Critical Care Medicine
DX: I10 Essential (primary) hypertension (principal); E55.9 Vitamin D deficiency, unspecified; E78.00 Pure hypercholesterolemia, unspecified; R91.8 Other nonspecific abnormal finding of lung field; Z79.899 Other long term (current) drug therapy

== ENCOUNTER 2020-01-30 19:27 | Inpatient (IN) | payer OTHER ==
[~2020-01-30] VITALS: Ht 152.4 cm; Wt 71.5 kg
[2020-01-30 19:44] VITALS: BP 154/86
[2020-01-30 20:16] LABS: BILIRUBIN NEGATIVE (NEGATIVE); BLOOD 3+ (NEGATIVE); CLARITY CLEAR (CLEAR); COLOR YELLOW (YELLOW); GLUCOSE NEGATIVE (NEGATIVE); KETONE NEGATIVE (NEGATIVE); LEUKO ESTERASE 3+ (NEGATIVE); NITRITE POSITIVE (NEGATIVE); PH 6.5 (5.0-9.0); UROBILINOGEN 0.2 E.U./dl (0.2-1.0)
[2020-01-30 20:21] LABS: BASO # 0.1 10*3/uL (0.0-0.1); BASO % 0.5 % (0.0-1.0); EOS # 0.1 10*3/uL (0.0-0.4); EOS % 0.5 % (1.0-4.0); HEMATOCRIT 31.8 % (37.0-47.0); LYMPH # 0.8 10*3/uL (1.3-4.4); LYMPH % 7.8 % (27.0-41.0); MEAN CELL VOLUME 93.3 fl (81.0-99.0); MEAN CORPUSCULAR HGB 29.9 pg (27.0-31.0); MEAN CORPUSCULAR HGB CONC 32.1 g/dl (33.0-37.0); MEAN PLATELET VOLUME 9.6 fl (9.6-12.3); MONO # 0.2 10*3/uL (0.1-1.0); MONO % 1.6 % (3.0-9.0); NEUT # 9.6 10*3/uL (2.3-7.9); NEUT % 89.1 % (47.0-73.0); PLATELET COUNT AUTOMATED 222 10*3/uL (130-400); RED BLOOD COUNT 3.41 10*6/uL (4.10-5.10); RED CELL DISTRI WIDTH 15.5 % (0-14.5); WHITE BLOOD COUNT 10.7 10*3/uL (4.8-10.8)
[2020-01-30 20:21] LABS: BACTERIA 4+; RBC TNTC rbc/hpf (0-2); WBC TNTC wbc/hpf (0-5)
--- NOTE | 2020-01-30 20:30 | NUR ---
PT STRAIGHT CATHED FOR URINE. PT TOLERATED WELL.
[2020-01-30 20:31] LABS: ACT PARTIAL THROMBO TIME 23.7 SECONDS (20.0-32.1)
[2020-01-30 20:43] LABS: ALBUMIN 3.1 gm/dl (3.1-4.5); ALKALINE PHOSPHATASE 109 U/L (45-117); BUN 16 mg/dl (7-24); CHLORIDE 107 mmol/L (98-107); CREATININE 0.82 mg/dL (0.55-1.02); POTASSIUM 3.9 mmol/L (3.5-5.1); SGOT/AST 22 IU/L (3-35); SGPT/ALT 16 U/L (12-78); SODIUM 137 mmol/L (136-145); TOTAL PROTEIN 6.6 gm/dL (6.4-8.2)
[2020-01-30 20:44] LABS: TROPONIN I < 0.015 ng/ml (<0.045)
[2020-01-30 21:39] VITALS: BP 130/50
--- NOTE | 2020-01-30 22:30 | NUR ---
PT NOW MORE ALERT. SKINS I STILL WARM. SHE APPEARS MORE COMFORTABLE. WILL CONTINUE TO MONITOR.
[2020-01-30 23:54] VITALS: BP 115/56
[2020-01-31 00:05] VITALS: BP 115/44
[2020-01-31] MEDS ORDERED: FISH OIL 1,0001 EAC4 PO (00:26)
[2020-01-31] MEDS ORDERED: FEROSUL325 MG PO (00:26)
[2020-01-31 00:33] LABS: CPK 147 U/L (26-192); LDH 177 U/L (84-246)
--- NOTE | 2020-01-31 00:52 | NUR ---
A 79, admitted to , under the services of PEDRO Bartholomew DO with a diagnosis of HYPERGLYCEMIA, SEVERE SEPSIS, ACUTE METABOLIC ENCEPHALOPATHY. Chief complaint is FEVER. Patient arrived via ambulance from ER. Monitor applied. Initial assessment completed. Vital signs taken and recorded. PEDRO BARTHOLOMEW DO notified of admission to the unit. Orders received. See assessment for past medical history, medications and allergies. Patient and/or family oriented to unit. [facility] visitation policy reviewed. Clothing/patient valuable form completed. NATIVIDAD ZENDEJAS
--- NOTE | 2020-01-31 00:55 | NUR ---
DR. CABEZAS NOTIFIED OF PT'S ALLERGY TO IVP DYE. OK FOR HEAD CT W/OUT CONTRAST. CT NOTIFIED.
[2020-01-31 06:12] LABS: BASO # 0.1 10*3/uL (0.0-0.1); BASO % 0.5 % (0.0-1.0); EOS # 0.1 10*3/uL (0.0-0.4); EOS % 0.4 % (1.0-4.0); HEMATOCRIT 28.6 % (37.0-47.0); LYMPH # 2.2 10*3/uL (1.3-4.4); LYMPH % 15.2 % (27.0-41.0); MEAN CELL VOLUME 95.7 fl (81.0-99.0); MEAN CORPUSCULAR HGB 30.1 pg (27.0-31.0); MEAN CORPUSCULAR HGB CONC 31.5 g/dl (33.0-37.0); MEAN PLATELET VOLUME 9.8 fl (9.6-12.3); MONO # 1.1 10*3/uL (0.1-1.0); MONO % 7.6 % (3.0-9.0); NEUT # 10.9 10*3/uL (2.3-7.9); NEUT % 75.9 % (47.0-73.0); PLATELET COUNT AUTOMATED 219 10*3/uL (130-400); RED BLOOD COUNT 2.99 10*6/uL (4.10-5.10); RED CELL DISTRI WIDTH 15.9 % (0-14.5); WHITE BLOOD COUNT 14.4 10*3/uL (4.8-10.8)
[2020-01-31 06:28] LABS: CHLORIDE 112 mmol/L (98-107); CREATININE 0.63 mg/dL (0.55-1.02); POTASSIUM 3.6 mmol/L (3.5-5.1); SGOT/AST 21 IU/L (3-35); SGPT/ALT 15 U/L (12-78); SODIUM 142 mmol/L (136-145)
[2020-01-31 06:36] LABS: ALBUMIN 2.7 gm/dl (3.1-4.5); ALKALINE PHOSPHATASE 78 U/L (45-117); BUN 13 mg/dl (7-24); IRON 23 ug/dL (50-170); TOTAL IRON BINDING CAPACITY 289 ug/dl (250-450); TOTAL PROTEIN 5.8 gm/dL (6.4-8.2)
[2020-01-31 06:54] LABS: CPK 230 U/L (26-192)
--- NOTE | 2020-01-31 07:00 | NUR ---
MSG LEFT FOR DR. RASMUSSEN RE NEW CONSULT.
--- NOTE | 2020-01-31 07:02 | NUR ---
DR. MACIAS NOTIFIED OF NEW CONSULT.
--- NOTE | 2020-01-31 07:15 | NUR ---
DR. CABEZAS NOTIFIED OF PT'S CRITICAL INR OF 6.1
[2020-01-31 08:59] VITALS: BP 124/42
--- NOTE | 2020-01-31 09:41 | NUR ---
SPOKE W/PT RE PASSWORD. PT DOES NOT WANT PASSWORD TO BE CHANGED. PT WOULD LIKE TO KEEP PASSWORD [place]. CODE STATUS REVIEWED W/PT AND PT WISHES TO BE A DNRCC.
--- NOTE | 2020-01-31 11:40 | NUR ---
Shift chart check completed.24 HR chart check completed.
--- NOTE | 2020-01-31 11:56 | NUR ---
TO CT SCAN VIA W/C USING DROPLET PRECAUTIONS. ROOM AIR. NO ACUTE DISTRESS.
[2020-01-31 12:00] VITALS: BP 121/38
--- NOTE | 2020-01-31 13:07 | NUR ---
Phthalic Acid Purifier in to talk to patient. Patient states lives at HOME with ALONE. There are NO steps in the home. Physician: [facility]: [facility] ONE DAY A WEEK FOR 3 HOURS WITH [facility] Patient's level of ADLs: INDEPENDENT Patient has working utilities: YES DME: NONE Follow-up physician's appointment after d/c: WILL BE MADE BY HOSPITALIST NURSE DIRECTOR ON DISCHARGE Does patient want to access PORTAL?: NO Discharge plan PT LIVES AT HOME AND IS INDEPENDENT IN HER CARE. STATES SHE HAS AN AID WITH [facility] ONE DAY A WEEK FOR 3 HOURS TO HELP WITH HOUSE CLEANING. DECLINES ANY OTHER NEEDS AT THIS TIME. WILL CONTINUE TO FOLLOW. PLAN IS TO RETURN HOME WHEN MEDICALLY STABLE. STATES SHE WILL HAVE A RIDE HOME.. TMI PETTIT
--- NOTE | 2020-01-31 13:28 | NUR ---
DR MACIAS HAD CALLED IN EARLIER TO CHECK ON PT. A STAT PORTABLE CXR WAS ORDERED AND TO LET DR MACIAS KNOW WHEN IT WAS IN PACS SYSTEM. THIS HAS BEEN DONE AND HE HAS REVIEWED IT WITH NO NEW ORDERS.
[2020-01-31 16:00] VITALS: BP 121/53
[2020-01-31 20:00] VITALS: BP 136/49
--- NOTE | 2020-01-31 21:40 | NUR ---
PATIENT MEDICATED WITH [facility]CO FOR COMPLAINTS OF BACK PAIN RELATED TO LAYING IN BED. RN WILL MONITOR FOR RELIEF
--- NOTE | 2020-01-31 22:40 | NUR ---
PATIENT STATES EARLIER MEDICATION WAS EFFECTIVE
[2020-02-01] VITALS: BP 119/49
[2020-02-01 05:20] LABS: ALBUMIN 2.4 gm/dl (3.1-4.5); ALKALINE PHOSPHATASE 76 U/L (45-117); BUN 13 mg/dl (7-24); CHLORIDE 113 mmol/L (98-107); CREATININE 0.52 mg/dL (0.55-1.02); POTASSIUM 3.6 mmol/L (3.5-5.1); SGOT/AST 20 IU/L (3-35); SGPT/ALT 15 U/L (12-78); SODIUM 144 mmol/L (136-145); TOTAL PROTEIN 5.7 gm/dL (6.4-8.2)
[2020-02-01 05:59] LABS: BASO # 0.1 10*3/uL (0.0-0.1); BASO % 0.8 % (0.0-1.0); EOS # 0.3 10*3/uL (0.0-0.4); EOS % 3.3 % (1.0-4.0); HEMATOCRIT 28.2 % (37.0-47.0); LYMPH # 2.2 10*3/uL (1.3-4.4); LYMPH % 23.8 % (27.0-41.0); MEAN CELL VOLUME 95.3 fl (81.0-99.0); MEAN CORPUSCULAR HGB 30.1 pg (27.0-31.0); MEAN CORPUSCULAR HGB CONC 31.6 g/dl (33.0-37.0); MEAN PLATELET VOLUME 9.8 fl (9.6-12.3); MONO # 0.8 10*3/uL (0.1-1.0); MONO % 9.1 % (3.0-9.0); NEUT # 5.8 10*3/uL (2.3-7.9); NEUT % 62.8 % (47.0-73.0); PLATELET COUNT AUTOMATED 222 10*3/uL (130-400); RED BLOOD COUNT 2.96 10*6/uL (4.10-5.10); RED CELL DISTRI WIDTH 15.9 % (0-14.5); WHITE BLOOD COUNT 9.2 10*3/uL (4.8-10.8)
[2020-02-01 08:00] VITALS: BP 128/46
--- NOTE | 2020-02-01 11:35 | NUR ---
24HR CHART CHECK COMPLETE.
[2020-02-01 12:00] VITALS: BP 126/73
--- NOTE | 2020-02-01 15:17 | NUR ---
Shift chart check completed.24 HR chart check completed.
[2020-02-01 16:00] VITALS: BP 131/58
--- NOTE | 2020-02-01 16:17 | NUR ---
NORCO GIVEN FOR LUMBAR AREA PAIN ".
--- NOTE | 2020-02-01 17:17 | NUR ---
EARLIER ANDRES "HELPING" HER DISCOMFORT.
[2020-02-01 20:00] VITALS: BP 139/50
[2020-02-02] VITALS: BP 138/47
[2020-02-02 08:00] VITALS: BP 129/45
--- NOTE | 2020-02-02 08:26 | NUR ---
PHYSICAL THERAPY Screen recieved, patient admitted from home with pnemonia, severs sepsis with UTI and metabolic encephalopathy. Please consult PT if patients functional status declines from baseline. Thank you. Pankaj España SPT Marjan Ivan PT
--- NOTE | 2020-02-02 08:58 | NUR ---
Patient is a 79 y/o female admitted with severe fever, chills and severe sepsis. If patient has a decline in ADLs, transfers or functional mobility please send occupational therapy orders. Thank you. Eve Mejias OTR/L
--- NOTE | 2020-02-02 09:00 | NUR ---
case management visits with patient, she stated she would return home when discharged, discussed with her [facility] and educated her on the services they provide, she stated she was familiar with home health services and didn't feel she needed any at this time, case management will follow
[2020-02-02 12:00] VITALS: BP 128/44
--- NOTE | 2020-02-02 14:09 | NUR ---
SPEECH PATHOLOGY Orders received for clinical swallowing evaluation and chart review completed. Patient is currently in negative pressure room due to suspected COVID-19 with results pending. Clinician consulted with patient's nurse this afternoon who suggested to wait until covid test results are received before proceeding with assessment. Will continue to monitor patient's status and proceed as appropriate. Thank you for this referral. EARNESTINE GUZMÁN MSCCC-MANAGER ACUTE
[2020-02-02] MEDS ORDERED: AUGMENTIN 875-875 MG PO (14:16)
--- NOTE | 2020-02-02 15:36 | NUR ---
PATIENT DISCHARGED TO HOME.
== END 2020-02-02 15:36 | disposition home or self-care (01) | DRG 871 ==
LOC: ED 19:27 → EDHOLD 21:50 → ED 21:50 → 4E 23:18 → EDHOLD 23:18 → 4E 23:18
PROVIDERS: Emergency Medicine Emergency Medical Services; Student in an Organized Health Care Education/Training Program; ADMIT Emergency Medicine
DX: A41.51 Sepsis due to Escherichia coli [E. coli] (principal); J18.9 Pneumonia, unspecified organism; G93.41 Metabolic encephalopathy; N39.0 Urinary tract infection, site not specified; I48.21 Permanent atrial fibrillation; I50.32 Chronic diastolic (congestive) heart failure; R65.20 Severe sepsis without septic shock; J44.9 Chronic obstructive pulmonary disease, unspecified; R91.8 Other nonspecific abnormal finding of lung field; Z20.828 Contact with and (suspected) exposure to other viral communicable diseases; R73.9 Hyperglycemia, unspecified; B96.20 Unspecified Escherichia coli [E. coli] as the cause of diseases classified elsewhere; E66.9 Obesity, unspecified; D64.9 Anemia, unspecified; M81.0 Age-related osteoporosis without current pathological fracture; Z91.041 Radiographic dye allergy status; Z90.49 Acquired absence of other specified parts of digestive tract; Z90.710 Acquired absence of both cervix and uterus; Z82.5 Family history of asthma and other chronic lower respiratory diseases; Z80.8 Family history of malignant neoplasm of other organs or systems; Z85.828 Personal history of other malignant neoplasm of skin; Z79.82 Long term (current) use of aspirin; Z79.899 Other long term (current) drug therapy; T88 Other complications of surgical and medical care, not elsewhere classified; T41.45 Adverse effect of unspecified anesthetic; Z68.30 Body mass index [BMI] 30.0-30.9, adult

== ENCOUNTER 2020-05-04 11:20 | Emergency (ER) | payer OTHER ==
[~2020-05-04] VITALS: Ht 152.4 cm; Wt 68.0 kg
[~2020-05-04 11:20] MED LIST changes: +AUGMENTIN 875-875 MG PO; +FEROSUL325 MG PO; +FISH OIL 1,0001 EAC4 PO
== END 2020-05-04 13:24 | disposition home or self-care (01) ==
LOC: ED 11:20
DX: S80.02XA Contusion of left knee, initial encounter (principal); K21.9 Gastro-esophageal reflux disease without esophagitis; J44.9 Chronic obstructive pulmonary disease, unspecified; I48.91 Unspecified atrial fibrillation; Z91.041 Radiographic dye allergy status; Z79.82 Long term (current) use of aspirin; Z79.899 Other long term (current) drug therapy; X58.XXXA Exposure to other specified factors, initial encounter; Y93.89 Activity, other specified; Y92.89 Other specified places as the place of occurrence of the external cause; Y99.8 Other external cause status

== ENCOUNTER → 2020-06-04 | Outpatient (CLI) | payer OTHER ==
[2020-06-04 08:29] LABS: BASO # 0.1 10*3/uL (0.0-0.1); BASO % 1.6 % (0.0-1.0); EOS # 0.4 10*3/uL (0.0-0.4); EOS % 4.6 % (1.0-4.0); HEMATOCRIT 32.7 % (37.0-47.0); LYMPH # 2.5 10*3/uL (1.3-4.4); LYMPH % 32.5 % (27.0-41.0); MEAN CELL VOLUME 89.8 fl (81.0-99.0); MEAN CORPUSCULAR HGB 26.4 pg (27.0-31.0); MEAN CORPUSCULAR HGB CONC 29.4 g/dl (33.0-37.0); MEAN PLATELET VOLUME 9.2 fl (9.6-12.3); MONO # 0.6 10*3/uL (0.1-1.0); MONO % 7.7 % (3.0-9.0); NEUT % 53.5 % (47.0-73.0); PLATELET COUNT AUTOMATED 336 10*3/uL (130-400); RED BLOOD COUNT 3.64 10*6/uL (4.10-5.10); RED CELL DISTRI WIDTH 14.6 % (0-14.5); WHITE BLOOD COUNT 7.6 10*3/uL (4.8-10.8)
[2020-06-04 08:52] LABS: IRON 36 ug/dL (50-170); TOTAL IRON BINDING CAPACITY 382 ug/dl (250-450)
== END | disposition home or self-care (01) ==
LOC: LAB 08:04
PROVIDERS: ATTEND Internal Medicine
DX: K27.9 Peptic ulcer, site unspecified, unspecified as acute or chronic, without hemorrhage or perforation (principal); D64.9 Anemia, unspecified

== ENCOUNTER → 2020-06-30 | Outpatient (CLI) | payer OTHER ==
[2020-06-30 09:31] LABS: BASO # 0.1 10*3/uL (0.0-0.1); BASO % 1.5 % (0.0-1.0); EOS # 0.3 10*3/uL (0.0-0.4); EOS % 4.3 % (1.0-4.0); HEMATOCRIT 31.5 % (37.0-47.0); LYMPH # 1.9 10*3/uL (1.3-4.4); LYMPH % 29.4 % (27.0-41.0); MEAN CELL VOLUME 88.7 fl (81.0-99.0); MEAN CORPUSCULAR HGB 26.2 pg (27.0-31.0); MEAN CORPUSCULAR HGB CONC 29.5 g/dl (33.0-37.0); MEAN PLATELET VOLUME 9.4 fl (9.6-12.3); MONO # 0.5 10*3/uL (0.1-1.0); MONO % 7.4 % (3.0-9.0); NEUT # 3.7 10*3/uL (2.3-7.9); NEUT % 57.1 % (47.0-73.0); PLATELET COUNT AUTOMATED 350 10*3/uL (130-400); RED BLOOD COUNT 3.55 10*6/uL (4.10-5.10); WHITE BLOOD COUNT 6.5 10*3/uL (4.8-10.8)
[2020-06-30 09:51] LABS: IRON 38 ug/dL (50-170); TOTAL IRON BINDING CAPACITY 370 ug/dl (250-450)
[2020-06-30 10:02] LABS: FERRITIN 13.3 ng/mL (10.0-291.0)
== END | disposition home or self-care (01) ==
LOC: LAB 08:24
PROVIDERS: ATTEND Internal Medicine
DX: D64.9 Anemia, unspecified (principal)

== ENCOUNTER → 2020-07-14 | Outpatient (CLI) | payer OTHER ==
[~2020-07-14] MED LIST changes: +ZOFRAN4 MG PO
== END | disposition home or self-care (01) ==
LOC: RESCLI 00:04
PROVIDERS: ATTEND Internal Medicine
DX: I48.20 Chronic atrial fibrillation, unspecified (principal); D64.9 Anemia, unspecified; I10 Essential (primary) hypertension; E55.9 Vitamin D deficiency, unspecified; K59.00 Constipation, unspecified; E78.00 Pure hypercholesterolemia, unspecified; F32.9 Major depressive disorder, single episode, unspecified; K21.9 Gastro-esophageal reflux disease without esophagitis; M15.0 Primary generalized (osteo)arthritis; M54.5 Low back pain; M81.0 Age-related osteoporosis without current pathological fracture; N19 Unspecified kidney failure; R13.12 Dysphagia, oropharyngeal phase; D50.8 Other iron deficiency anemias; J30.1 Allergic rhinitis due to pollen; Z88.8 Allergy status to other drugs, medicaments and biological substances; Z79.82 Long term (current) use of aspirin; Z79.899 Other long term (current) drug therapy

== ENCOUNTER → 2020-07-16 | Outpatient (CLI) | payer MEDICARE ==
[~2020-07-16] MED LIST changes: -ZOFRAN4 MG PO
[2020-07-16 08:27] LABS: BASO # 0.1 10*3/uL (0.0-0.1); BASO % 1.4 % (0.0-1.0); EOS # 0.2 10*3/uL (0.0-0.4); EOS % 3.2 % (1.0-4.0); HEMATOCRIT 32.2 % (37.0-47.0); LYMPH # 2.7 10*3/uL (1.3-4.4); LYMPH % 35.8 % (27.0-41.0); MEAN CELL VOLUME 87.5 fl (81.0-99.0); MEAN CORPUSCULAR HGB 26.1 pg (27.0-31.0); MEAN CORPUSCULAR HGB CONC 29.8 g/dl (33.0-37.0); MEAN PLATELET VOLUME 9.1 fl (9.6-12.3); MONO # 0.5 10*3/uL (0.1-1.0); MONO % 6.7 % (3.0-9.0); NEUT % 52.6 % (47.0-73.0); PLATELET COUNT AUTOMATED 354 10*3/uL (130-400); RED BLOOD COUNT 3.68 10*6/uL (4.10-5.10); RED CELL DISTRI WIDTH 15.5 % (0-14.5); WHITE BLOOD COUNT 7.6 10*3/uL (4.8-10.8)
[2020-07-16 08:48] LABS: IRON 126 ug/dL (50-170); TOTAL IRON BINDING CAPACITY 392 ug/dl (250-450)
== END | disposition home or self-care (01) ==
LOC: LAB 07:58
PROVIDERS: ATTEND Internal Medicine
DX: E61.1 Iron deficiency (principal); D64.9 Anemia, unspecified

== ENCOUNTER → 2020-08-02 | Outpatient (CLI) | payer MEDICARE ==
[~2020-08-02] MED LIST changes: +ZOFRAN4 MG PO
[2020-08-02 08:53] LABS: BASO # 0.1 10*3/uL (0.0-0.1); BASO % 1.3 % (0.0-1.0); EOS # 0.2 10*3/uL (0.0-0.4); EOS % 3.6 % (1.0-4.0); HEMATOCRIT 31.3 % (37.0-47.0); LYMPH # 2.3 10*3/uL (1.3-4.4); LYMPH % 35.3 % (27.0-41.0); MEAN CELL VOLUME 87.4 fl (81.0-99.0); MEAN CORPUSCULAR HGB CONC 29.7 g/dl (33.0-37.0); MEAN PLATELET VOLUME 8.8 fl (9.6-12.3); MONO # 0.5 10*3/uL (0.1-1.0); MONO % 7.1 % (3.0-9.0); NEUT # 3.4 10*3/uL (2.3-7.9); NEUT % 52.4 % (47.0-73.0); PLATELET COUNT AUTOMATED 329 10*3/uL (130-400); RED BLOOD COUNT 3.58 10*6/uL (4.10-5.10); RED CELL DISTRI WIDTH 16.8 % (0-14.5); RETICULOCYTE % 1.49 % (0.50-2.50); WHITE BLOOD COUNT 6.4 10*3/uL (4.8-10.8)
[2020-08-02 09:27] LABS: ALBUMIN 3.5 gm/dl (3.1-4.5); BUN 12 mg/dl (7-24); CHLORIDE 109 mmol/L (98-107); CREATININE 0.57 mg/dL (0.55-1.02); IRON 30 ug/dL (50-170); POTASSIUM 3.9 mmol/L (3.5-5.1); SGOT/AST 20 IU/L (3-35); SGPT/ALT 16 U/L (12-78); SODIUM 140 mmol/L (136-145)
[2020-08-02 09:30] LABS: ALKALINE PHOSPHATASE 88 U/L (45-117); TOTAL IRON BINDING CAPACITY 393 ug/dl (250-450); TOTAL PROTEIN 6.9 gm/dL (6.4-8.2)
== END | disposition home or self-care (01) ==
LOC: LAB 08:23
PROVIDERS: ATTEND Internal Medicine
DX: K92.2 Gastrointestinal hemorrhage, unspecified (principal); D64.9 Anemia, unspecified; L98.499 Non-pressure chronic ulcer of skin of other sites with unspecified severity

== ENCOUNTER 2020-09-02 14:45 | Emergency (ER) | payer MEDICARE ==
[~2020-09-02] VITALS: Ht 152.4 cm; Wt 65.8 kg
[~2020-09-02 14:45] MED LIST changes: -ZOFRAN4 MG PO
[2020-09-02 15:21] LABS: BASO # 0.1 10*3/uL (0.0-0.1); BASO % 0.7 % (0.0-1.0); EOS # 0.1 10*3/uL (0.0-0.4); EOS % 1.3 % (1.0-4.0); HEMATOCRIT 28.6 % (37.0-47.0); LYMPH % 10.9 % (27.0-41.0); MEAN CELL VOLUME 86.1 fl (81.0-99.0); MEAN CORPUSCULAR HGB 25.9 pg (27.0-31.0); MEAN CORPUSCULAR HGB CONC 30.1 g/dl (33.0-37.0); MEAN PLATELET VOLUME 8.7 fl (9.6-12.3); MONO # 0.6 10*3/uL (0.1-1.0); MONO % 6.3 % (3.0-9.0); NEUT # 7.7 10*3/uL (2.3-7.9); NEUT % 80.5 % (47.0-73.0); PLATELET COUNT AUTOMATED 254 10*3/uL (130-400); RED BLOOD COUNT 3.32 10*6/uL (4.10-5.10); WHITE BLOOD COUNT 9.5 10*3/uL (4.8-10.8)
[2020-09-02 15:33] LABS: ACT PARTIAL THROMBO TIME 30.5 SECONDS (20.0-32.1); INTERNATIONAL NORM RATIO 1.4 (2.0-3.5)
[2020-09-02 15:37] LABS: ALBUMIN 3.3 gm/dl (3.1-4.5); ALKALINE PHOSPHATASE 81 U/L (45-117); BUN 12 mg/dl (7-24); CHLORIDE 108 mmol/L (98-107); CREATININE 0.58 mg/dL (0.55-1.02); POTASSIUM 3.7 mmol/L (3.5-5.1); SGOT/AST 19 IU/L (3-35); SGPT/ALT 14 U/L (12-78); SODIUM 142 mmol/L (136-145); TOTAL PROTEIN 6.6 gm/dL (6.4-8.2)
[2020-09-02 15:42] LABS: TROPONIN I < 0.015 ng/ml (<0.045)
[2020-09-02] MEDS ORDERED: ZOFRAN4 MG PO (17:22)
== END 2020-09-02 17:25 | disposition home or self-care (01) ==
LOC: ED 14:45
PROVIDERS: Emergency Medicine
DX: R51.9 Headache, unspecified (principal); R11.0 Nausea; M81.0 Age-related osteoporosis without current pathological fracture; Z79.82 Long term (current) use of aspirin; Z79.899 Other long term (current) drug therapy; Z91.041 Radiographic dye allergy status; Z79.2 Long term (current) use of antibiotics; I48.91 Unspecified atrial fibrillation; J44.9 Chronic obstructive pulmonary disease, unspecified; Z86.16 Personal history of COVID-19; Z90.49 Acquired absence of other specified parts of digestive tract; Z90.711 Acquired absence of uterus with remaining cervical stump; Z98.890 Other specified postprocedural states

== ENCOUNTER → 2020-09-20 | Outpatient (CLI) | payer MEDICARE ==
[~2020-09-20] MED LIST changes: +ZOFRAN4 MG PO
[2020-09-20 09:11] LABS: BASO # 0.1 10*3/uL (0.0-0.1); BASO % 1.6 % (0.0-1.0); EOS # 0.3 10*3/uL (0.0-0.4); HEMATOCRIT 29.4 % (37.0-47.0); LYMPH # 2.6 10*3/uL (1.3-4.4); MEAN CELL VOLUME 86.7 fl (81.0-99.0); MEAN CORPUSCULAR HGB CONC 29.9 g/dl (33.0-37.0); MEAN PLATELET VOLUME 9.2 fl (9.6-12.3); MONO # 0.6 10*3/uL (0.1-1.0); MONO % 7.8 % (3.0-9.0); NEUT # 4.3 10*3/uL (2.3-7.9); NEUT % 54.3 % (47.0-73.0); PLATELET COUNT AUTOMATED 385 10*3/uL (130-400); RED BLOOD COUNT 3.39 10*6/uL (4.10-5.10); RED CELL DISTRI WIDTH 16.5 % (0-14.5); RETICULOCYTE % 1.19 % (0.50-2.50)
[2020-09-20 09:42] LABS: ALBUMIN 3.4 gm/dl (3.1-4.5); BUN 17 mg/dl (7-24); CHLORIDE 112 mmol/L (98-107); CREATININE 0.61 mg/dL (0.55-1.02); IRON 33 ug/dL (50-170); POTASSIUM 3.8 mmol/L (3.5-5.1); SGOT/AST 15 IU/L (3-35); SGPT/ALT 13 U/L (12-78); SODIUM 143 mmol/L (136-145); TOTAL IRON BINDING CAPACITY 401 ug/dl (250-450)
[2020-09-20 09:43] LABS: ALKALINE PHOSPHATASE 85 U/L (45-117)
[2020-09-20 10:32] LABS: FERRITIN 9.2 ng/mL (10.0-291.0)
== END | disposition home or self-care (01) ==
LOC: LAB 08:31
PROVIDERS: ATTEND Internal Medicine
DX: K21.9 Gastro-esophageal reflux disease without esophagitis (principal); D50.9 Iron deficiency anemia, unspecified; K27.9 Peptic ulcer, site unspecified, unspecified as acute or chronic, without hemorrhage or perforation

== ENCOUNTER → 2020-09-24 | Outpatient (CLI) | payer MEDICARE | END | disposition home or self-care (01) | LOC: CT 08:31 | PROVIDERS: ATTEND Internal Medicine | DX: R10.84 Generalized abdominal pain (principal); D64.9 Anemia, unspecified ==

== ENCOUNTER → 2020-09-30 | Outpatient (CLI) | payer MEDICARE | END | disposition home or self-care (01) | LOC: RESCLI 06:50 | PROVIDERS: ATTEND Internal Medicine | DX: G43.009 Migraine without aura, not intractable, without status migrainosus (principal); M81.0 Age-related osteoporosis without current pathological fracture; E78.5 Hyperlipidemia, unspecified; K59.00 Constipation, unspecified; I48.20 Chronic atrial fibrillation, unspecified; D64.9 Anemia, unspecified; E55.9 Vitamin D deficiency, unspecified; K21.9 Gastro-esophageal reflux disease without esophagitis; N30.01 Acute cystitis with hematuria; B35.4 Tinea corporis; Z79.82 Long term (current) use of aspirin; Z79.899 Other long term (current) drug therapy; Z88.8 Allergy status to other drugs, medicaments and biological substances ==

== ENCOUNTER → 2020-10-28 | Outpatient (CLI) | payer MEDICARE | END | disposition home or self-care (01) | LOC: RESCLI 00:21 | PROVIDERS: ATTEND Internal Medicine Nephrology | DX: G43.009 Migraine without aura, not intractable, without status migrainosus (principal); G44.52 New daily persistent headache (NDPH); F32.9 Major depressive disorder, single episode, unspecified; I10 Essential (primary) hypertension; M15.0 Primary generalized (osteo)arthritis; M81.0 Age-related osteoporosis without current pathological fracture; E78.00 Pure hypercholesterolemia, unspecified; I48.20 Chronic atrial fibrillation, unspecified; N19 Unspecified kidney failure; K21.9 Gastro-esophageal reflux disease without esophagitis; E55.9 Vitamin D deficiency, unspecified; D50.8 Other iron deficiency anemias; J30.1 Allergic rhinitis due to pollen; R13.12 Dysphagia, oropharyngeal phase; K59.00 Constipation, unspecified; M25.551 Pain in right hip; Z79.82 Long term (current) use of aspirin; Z79.899 Other long term (current) drug therapy; Z88.8 Allergy status to other drugs, medicaments and biological substances ==

== ENCOUNTER → 2020-11-15 | Outpatient (CLI) | payer MEDICARE ==
[2020-11-15 09:06] LABS: BASO # 0.1 10*3/uL (0.0-0.1); BASO % 1.6 % (0.0-1.0); EOS # 0.3 10*3/uL (0.0-0.4); EOS % 4.1 % (1.0-4.0); HEMATOCRIT 37.9 % (37.0-47.0); LYMPH # 1.9 10*3/uL (1.3-4.4); LYMPH % 29.2 % (27.0-41.0); MEAN CELL VOLUME 93.8 fl (81.0-99.0); MEAN CORPUSCULAR HGB CONC 29.8 g/dl (33.0-37.0); MEAN PLATELET VOLUME 9.7 fl (9.6-12.3); MONO # 0.5 10*3/uL (0.1-1.0); MONO % 8.1 % (3.0-9.0); NEUT # 3.6 10*3/uL (2.3-7.9); NEUT % 56.8 % (47.0-73.0); PLATELET COUNT AUTOMATED 314 10*3/uL (130-400); RED BLOOD COUNT 4.04 10*6/uL (4.10-5.10); RED CELL DISTRI WIDTH 26.2 % (0-14.5); WHITE BLOOD COUNT 6.3 10*3/uL (4.8-10.8)
[2020-11-15 09:39] LABS: VITAMIN D, 25-HYDROXY 38.9 ng/mL (30-100)
[2020-11-15 10:52] LABS: CHLORIDE 113 mmol/L (98-107); POTASSIUM 4.1 mmol/L (3.5-5.1); SODIUM 143 mmol/L (136-145)
[2020-11-15 11:02] LABS: ALBUMIN 3.6 gm/dl (3.1-4.5); ALKALINE PHOSPHATASE 100 U/L (45-117); BUN 12 mg/dl (7-24); CHOLESTEROL 146 mg/dL (<200); CREATININE 0.58 mg/dL (0.55-1.02); IRON 91 ug/dL (50-170); LDL CHOLESTEROL 64 mg/dL (9-159); SGOT/AST 18 IU/L (3-35); SGPT/ALT 16 U/L (12-78); TOTAL IRON BINDING CAPACITY 350 ug/dl (250-450); TOTAL PROTEIN 7.3 gm/dL (6.4-8.2); TRIGLYCERIDES 83 mg/dl (<150)
== END | disposition home or self-care (01) ==
LOC: LAB 08:19
PROVIDERS: Student in an Organized Health Care Education/Training Program; ATTEND Internal Medicine
DX: M25.751 Osteophyte, right hip (principal); E55.9 Vitamin D deficiency, unspecified; I70.201 Unspecified atherosclerosis of native arteries of extremities, right leg; Z79.899 Other long term (current) drug therapy

== ENCOUNTER → 2020-12-02 | Outpatient (CLI) | payer MEDICARE | END | disposition home or self-care (01) | LOC: CT 08:00 → RESCLI 08:04 | PROVIDERS: ATTEND Internal Medicine | DX: M81.0 Age-related osteoporosis without current pathological fracture (principal); Z79.899 Other long term (current) drug therapy; Z90.710 Acquired absence of both cervix and uterus; Z90.722 Acquired absence of ovaries, bilateral; Z95.828 Presence of other vascular implants and grafts; Z98.890 Other specified postprocedural states; Z88.8 Allergy status to other drugs, medicaments and biological substances ==

== ENCOUNTER 2020-12-31 21:36 | Inpatient (IN) | payer MEDICARE ==
[~2020-12-31] VITALS: Ht 152.4 cm; Wt 70.3 kg
[2020-12-31 21:46] VITALS: BP 153/70
[2020-12-31 22:13] LABS: BASO # 0.1 10*3/uL (0.0-0.1); BASO % 1.1 % (0.0-1.0); EOS # 0.3 10*3/uL (0.0-0.4); EOS % 3.2 % (1.0-4.0); HEMATOCRIT 34.1 % (37.0-47.0); LYMPH % 32.9 % (27.0-41.0); MEAN CELL VOLUME 96.9 fl (81.0-99.0); MEAN CORPUSCULAR HGB 30.7 pg (27.0-31.0); MEAN CORPUSCULAR HGB CONC 31.7 g/dl (33.0-37.0); MEAN PLATELET VOLUME 8.5 fl (9.6-12.3); MONO # 0.8 10*3/uL (0.1-1.0); MONO % 8.5 % (3.0-9.0); NEUT % 54.1 % (47.0-73.0); PLATELET COUNT AUTOMATED 238 10*3/uL (130-400); RED BLOOD COUNT 3.52 10*6/uL (4.10-5.10); RED CELL DISTRI WIDTH 23.2 % (0-14.5); WHITE BLOOD COUNT 9.2 10*3/uL (4.8-10.8)
[2020-12-31 22:27] LABS: ALBUMIN 3.2 gm/dl (3.1-4.5); ALKALINE PHOSPHATASE 89 U/L (45-117); BUN 11 mg/dl (7-24); CHLORIDE 113 mmol/L (98-107); CREATININE 0.68 mg/dL (0.55-1.02); POTASSIUM 3.8 mmol/L (3.5-5.1); SGOT/AST 20 IU/L (3-35); SGPT/ALT 14 U/L (12-78); SODIUM 143 mmol/L (136-145); TOTAL PROTEIN 6.8 gm/dL (6.4-8.2)
[2021-01-01] VITALS (7 sets, daily range): BP systolic 115–156; BP diastolic 45–88
[2021-01-01] MEDS ORDERED: FAMOTIDINE40 MG PO (01:49)
[2021-01-01] MEDS ORDERED: BREZTRI AEROS10.7 GM INH (01:54)
[2021-01-01] MEDS ORDERED: TYLENOL325 M3 PO (01:55)
[2021-01-01] MEDS ORDERED: XARELTO20 M1 PO (01:56)
[2021-01-01 05:59] LABS: BUN 10 mg/dl (7-24); CHLORIDE 115 mmol/L (98-107); CREATININE 0.56 mg/dL (0.55-1.02); SGOT/AST 16 IU/L (3-35); SGPT/ALT 14 U/L (12-78); SODIUM 143 mmol/L (136-145)
[2021-01-01 06:00] LABS: ALKALINE PHOSPHATASE 75 U/L (45-117)
[2021-01-01 06:42] LABS: BASO # 0.1 10*3/uL (0.0-0.1); BASO % 0.9 % (0.0-1.0); EOS # 0.3 10*3/uL (0.0-0.4); EOS % 3.7 % (1.0-4.0); HEMATOCRIT 30.9 % (37.0-47.0); LYMPH # 2.1 10*3/uL (1.3-4.4); LYMPH % 27.6 % (27.0-41.0); MEAN CELL VOLUME 97.5 fl (81.0-99.0); MEAN CORPUSCULAR HGB 30.6 pg (27.0-31.0); MEAN CORPUSCULAR HGB CONC 31.4 g/dl (33.0-37.0); MEAN PLATELET VOLUME 9.5 fl (9.6-12.3); MONO # 0.7 10*3/uL (0.1-1.0); MONO % 9.1 % (3.0-9.0); NEUT # 4.5 10*3/uL (2.3-7.9); NEUT % 58.4 % (47.0-73.0); PLATELET COUNT AUTOMATED 231 10*3/uL (130-400); RED BLOOD COUNT 3.17 10*6/uL (4.10-5.10); RED CELL DISTRI WIDTH 23.1 % (0-14.5); WHITE BLOOD COUNT 7.7 10*3/uL (4.8-10.8)
[2021-01-01 16:43] LABS: BILIRUBIN Negative (Negative); BLOOD Trace-Lysed (Negative); CLARITY Cloudy (Clear); COLOR Yellow (Yellow); GLUCOSE Negative (Negative); KETONE Negative (Negative); LEUKO ESTERASE 3+ (Negative); NITRITE Negative (Negative); PH 5.5 (4.5-8.0); UROBILINOGEN 0.2 E.U./dl (0.0-1.0)
[2021-01-01 16:56] LABS: BACTERIA 4+; WBC 51-100 wbc/hpf (0-5)
[2021-01-02] VITALS: BP 118/60
[2021-01-02 06:06] LABS: BASO # 0.1 10*3/uL (0.0-0.1); BASO % 1.1 % (0.0-1.0); EOS # 0.2 10*3/uL (0.0-0.4); EOS % 2.7 % (1.0-4.0); LYMPH # 1.7 10*3/uL (1.3-4.4); LYMPH % 20.7 % (27.0-41.0); MEAN CELL VOLUME 97.1 fl (81.0-99.0); MEAN CORPUSCULAR HGB 30.3 pg (27.0-31.0); MEAN CORPUSCULAR HGB CONC 31.2 g/dl (33.0-37.0); MEAN PLATELET VOLUME 9.2 fl (9.6-12.3); MONO # 0.7 10*3/uL (0.1-1.0); MONO % 8.4 % (3.0-9.0); NEUT # 5.4 10*3/uL (2.3-7.9); NEUT % 66.7 % (47.0-73.0); PLATELET COUNT AUTOMATED 227 10*3/uL (130-400); WHITE BLOOD COUNT 8.1 10*3/uL (4.8-10.8)
[2021-01-02 06:33] LABS: BUN 5 mg/dl (7-24); CHLORIDE 114 mmol/L (98-107); POTASSIUM 3.5 mmol/L (3.5-5.1); SODIUM 144 mmol/L (136-145)
[2021-01-02 08:00] VITALS: BP 129/55
[2021-01-02 12:00] VITALS: BP 122/56
[2021-01-02 16:00] VITALS: BP 120/41
[2021-01-02 20:07] VITALS: BP 128/61
[2021-01-03] VITALS: BP 134/41
[2021-01-03 06:48] LABS: BASO # 0.1 10*3/uL (0.0-0.1); EOS # 0.3 10*3/uL (0.0-0.4); EOS % 3.9 % (1.0-4.0); HEMATOCRIT 37.9 % (37.0-47.0); LYMPH # 2.6 10*3/uL (1.3-4.4); LYMPH % 32.5 % (27.0-41.0); MEAN CELL VOLUME 97.2 fl (81.0-99.0); MEAN CORPUSCULAR HGB 30.5 pg (27.0-31.0); MEAN CORPUSCULAR HGB CONC 31.4 g/dl (33.0-37.0); MEAN PLATELET VOLUME 9.1 fl (9.6-12.3); MONO # 0.7 10*3/uL (0.1-1.0); MONO % 8.4 % (3.0-9.0); NEUT # 4.3 10*3/uL (2.3-7.9); NEUT % 53.9 % (47.0-73.0); PLATELET COUNT AUTOMATED 269 10*3/uL (130-400); RED CELL DISTRI WIDTH 22.5 % (0-14.5); WHITE BLOOD COUNT 7.9 10*3/uL (4.8-10.8)
[2021-01-03 07:12] LABS: BUN 4 mg/dl (7-24); CHLORIDE 109 mmol/L (98-107); CREATININE 0.61 mg/dL (0.55-1.02); POTASSIUM 2.9 mmol/L (3.5-5.1); SODIUM 141 mmol/L (136-145)
[2021-01-03 07:33] VITALS: BP 144/51
[2021-01-03 08:05] VITALS: BP 158/63
[2021-01-03 08:17] VITALS: BP 149/61
[2021-01-03 08:32] VITALS: BP 150/54
[2021-01-03 12:00] VITALS: BP 110/50
[2021-01-03] MEDS ORDERED: Carafate1 GM PO (12:51)
[2021-01-03] MEDS ORDERED: ASPIRIN ADULT L81 M2 PO (12:51)
[2021-01-03] MEDS ORDERED: CIPRO250 MG PO (12:53)
== END 2021-01-03 15:30 | disposition home or self-care (01) | DRG 378 ==
LOC: ED 21:36 → EDHOLD 23:33 → 4E 23:33
PROVIDERS: Hospitalist; Internal Medicine; Student in an Organized Health Care Education/Training Program; ADMIT Emergency Medicine; ATTEND Emergency Medicine
PROC: 0DB68ZX Excision of Stomach, Via Natural or Artificial Opening Endoscopic, Diagnostic (ICD-10-PCS; principal; 2021-01-03)
PROC: 0DJD8ZZ Inspection of Lower Intestinal Tract, Via Natural or Artificial Opening Endoscopic (ICD-10-PCS; 2021-01-03)
DX: K29.71 Gastritis, unspecified, with bleeding (principal); E44.0 Moderate protein-calorie malnutrition; N30.00 Acute cystitis without hematuria; K25.4 Chronic or unspecified gastric ulcer with hemorrhage; I48.91 Unspecified atrial fibrillation; D64.9 Anemia, unspecified; M81.0 Age-related osteoporosis without current pathological fracture; E87.8 Other disorders of electrolyte and fluid balance, not elsewhere classified; J44.9 Chronic obstructive pulmonary disease, unspecified; R73.9 Hyperglycemia, unspecified; E83.41 Hypermagnesemia; E66.9 Obesity, unspecified; E53.8 Deficiency of other specified B group vitamins; I95.1 Orthostatic hypotension; I48.0 Paroxysmal atrial fibrillation; Z91.041 Radiographic dye allergy status; Z90.710 Acquired absence of both cervix and uterus; Z90.49 Acquired absence of other specified parts of digestive tract; Z93.1 Gastrostomy status; Z82.5 Family history of asthma and other chronic lower respiratory diseases; Z79.1 Long term (current) use of non-steroidal anti-inflammatories (NSAID); Z79.82 Long term (current) use of aspirin; Z79.899 Other long term (current) drug therapy; Z68.30 Body mass index [BMI] 30.0-30.9, adult; K57.90 Diverticulosis of intestine, part unspecified, without perforation or abscess without bleeding

== ENCOUNTER → 2021-01-20 | Outpatient (CLI) | payer MEDICARE ==
[~2021-01-20] MED LIST changes: +BREZTRI AEROS10.7 GM INH; +CIPRO250 MG PO; +Carafate1 GM PO; +FAMOTIDINE40 MG PO; +TYLENOL325 M3 PO; +XARELTO20 M1 PO
== END | disposition home or self-care (01) ==
LOC: RESCLI 04:57
PROVIDERS: ATTEND Internal Medicine
DX: K25.4 Chronic or unspecified gastric ulcer with hemorrhage (principal); K21.9 Gastro-esophageal reflux disease without esophagitis; E55.9 Vitamin D deficiency, unspecified; I10 Essential (primary) hypertension; G43.009 Migraine without aura, not intractable, without status migrainosus; K59.00 Constipation, unspecified; I48.20 Chronic atrial fibrillation, unspecified; J44.9 Chronic obstructive pulmonary disease, unspecified; M81.0 Age-related osteoporosis without current pathological fracture; D50.8 Other iron deficiency anemias; Z79.899 Other long term (current) drug therapy; Z98.890 Other specified postprocedural states; Z88.8 Allergy status to other drugs, medicaments and biological substances; Z90.710 Acquired absence of both cervix and uterus; Z79.82 Long term (current) use of aspirin

== ENCOUNTER → 2021-02-07 | Outpatient (CLI) | payer MEDICARE | END | disposition home or self-care (01) | LOC: CT 00:15 | PROVIDERS: ATTEND Internal Medicine Critical Care Medicine | DX: J92.9 Pleural plaque without asbestos (principal); I25.10 Atherosclerotic heart disease of native coronary artery without angina pectoris; J84.10 Pulmonary fibrosis, unspecified ==

== ENCOUNTER → 2021-04-29 | Outpatient (CLI) | payer MEDICARE | END | disposition home or self-care (01) | LOC: RESCLI 00:14 | PROVIDERS: ATTEND Internal Medicine | DX: M54.50 Low back pain, unspecified (principal); K25.4 Chronic or unspecified gastric ulcer with hemorrhage; E55.9 Vitamin D deficiency, unspecified; I10 Essential (primary) hypertension; G43.009 Migraine without aura, not intractable, without status migrainosus; K59.00 Constipation, unspecified; I48.91 Unspecified atrial fibrillation; J44.9 Chronic obstructive pulmonary disease, unspecified; M81.0 Age-related osteoporosis without current pathological fracture; D50.8 Other iron deficiency anemias; J30.1 Allergic rhinitis due to pollen; J96.90 Respiratory failure, unspecified, unspecified whether with hypoxia or hypercapnia; E78.5 Hyperlipidemia, unspecified; G89.29 Other chronic pain; Z88.8 Allergy status to other drugs, medicaments and biological substances; Z79.899 Other long term (current) drug therapy; Z90.710 Acquired absence of both cervix and uterus; Z90.722 Acquired absence of ovaries, bilateral; Z98.890 Other specified postprocedural states; Z78.0 Asymptomatic menopausal state ==

== ENCOUNTER → 2021-06-13 | Outpatient (CLI) | payer MEDICARE | END | disposition home or self-care (01) | LOC: RAD 06-06 09:00 → MAMMO 06-06 09:30 → RAD 04:42 | PROVIDERS: ATTEND Internal Medicine Nephrology | DX: Z12.31 Encounter for screening mammogram for malignant neoplasm of breast (principal); M81.0 Age-related osteoporosis without current pathological fracture; N64.89 Other specified disorders of breast ==

== ENCOUNTER → 2021-10-28 | Outpatient (CLI) | payer MEDICARE | END | disposition home or self-care (01) | LOC: RESCLI 00:31 | PROVIDERS: ATTEND Internal Medicine | DX: M81.0 Age-related osteoporosis without current pathological fracture (principal); K21.9 Gastro-esophageal reflux disease without esophagitis; E55.9 Vitamin D deficiency, unspecified; J30.1 Allergic rhinitis due to pollen; D50.8 Other iron deficiency anemias; K59.00 Constipation, unspecified; J44.9 Chronic obstructive pulmonary disease, unspecified; G89.29 Other chronic pain; M54.50 Low back pain, unspecified; E78.5 Hyperlipidemia, unspecified; R60.9 Edema, unspecified; M75.01 Adhesive capsulitis of right shoulder; Z79.899 Other long term (current) drug therapy; Z88.8 Allergy status to other drugs, medicaments and biological substances ==

== ENCOUNTER → 2021-10-31 | Outpatient (CLI) | payer MEDICARE ==
[2021-10-31 09:03] LABS: BASO # 0.1 10*3/uL (0.0-0.1); BASO % 1.8 % (0.0-1.0); EOS # 0.2 10*3/uL (0.0-0.4); EOS % 2.6 % (1.0-4.0); HEMATOCRIT 35.2 % (37.0-47.0); LYMPH # 1.9 10*3/uL (1.3-4.4); LYMPH % 29.6 % (27.0-41.0); MEAN CELL VOLUME 98.3 fl (81.0-99.0); MEAN CORPUSCULAR HGB 31.3 pg (27.0-31.0); MEAN CORPUSCULAR HGB CONC 31.8 g/dl (33.0-37.0); MEAN PLATELET VOLUME 9.3 fl (9.6-12.3); MONO # 0.7 10*3/uL (0.1-1.0); MONO % 10.3 % (3.0-9.0); NEUT # 3.6 10*3/uL (2.3-7.9); NEUT % 55.4 % (47.0-73.0); PLATELET COUNT AUTOMATED 226 10*3/uL (130-400); RED BLOOD COUNT 3.58 10*6/uL (4.10-5.10); RED CELL DISTRI WIDTH 14.7 % (0-14.5); WHITE BLOOD COUNT 6.5 10*3/uL (4.8-10.8)
[2021-10-31 10:06] LABS: FERRITIN 12.4 ng/mL (10.0-291.0); VITAMIN D, 25-HYDROXY 27.8 ng/mL (30-100)
[2021-10-31 10:17] LABS: BUN 8 mg/dl (7-24); CHLORIDE 109 mmol/L (98-107); IRON 45 ug/dL (50-170); SGOT/AST 24 IU/L (3-35); SGPT/ALT 12 U/L (12-78); SODIUM 140 mmol/L (136-145)
[2021-10-31 10:19] LABS: ALKALINE PHOSPHATASE 86 U/L (45-117); CHOLESTEROL 134 mg/dL (<200); LDL CHOLESTEROL 55 mg/dL (9-159); TOTAL IRON BINDING CAPACITY 469 ug/dl (250-450); TOTAL PROTEIN 7.3 gm/dL (6.4-8.2); TRIGLYCERIDES 73 mg/dl (<150)
== END | disposition home or self-care (01) ==
LOC: LAB 08:26
PROVIDERS: ATTEND Internal Medicine
DX: E78.5 Hyperlipidemia, unspecified (principal); D50.8 Other iron deficiency anemias; E55.9 Vitamin D deficiency, unspecified; I10 Essential (primary) hypertension

== ENCOUNTER → 2021-11-17 | Outpatient (CLI) | payer MEDICARE | END | disposition home or self-care (01) | LOC: CARD 00:45 | PROVIDERS: ATTEND Internal Medicine | DX: I07.1 Rheumatic tricuspid insufficiency (principal); Z79.899 Other long term (current) drug therapy ==

== ENCOUNTER 2021-12-29 11:53 | Inpatient (IN) | payer MEDICARE ==
[~2021-12-29] VITALS: Ht 152.4 cm; Wt 69.9 kg
[2021-12-29 12:05] VITALS: BP 151/46
[2021-12-29 13:05] LABS: BASO # 0.1 10*3/uL (0.0-0.1); BASO % 1.1 % (0.0-1.0); EOS # 0.1 10*3/uL (0.0-0.4); EOS % 1.9 % (1.0-4.0); HEMATOCRIT 34.2 % (37.0-47.0); LYMPH # 2.2 10*3/uL (1.3-4.4); LYMPH % 29.7 % (27.0-41.0); MEAN CORPUSCULAR HGB 32.2 pg (27.0-31.0); MEAN PLATELET VOLUME 9.8 fl (9.6-12.3); MONO # 0.7 10*3/uL (0.1-1.0); MONO % 8.8 % (3.0-9.0); NEUT # 4.3 10*3/uL (2.3-7.9); NEUT % 58.4 % (47.0-73.0); PLATELET COUNT AUTOMATED 201 10*3/uL (130-400); RED BLOOD COUNT 3.29 10*6/uL (4.10-5.10); RED CELL DISTRI WIDTH 14.9 % (0-14.5); WHITE BLOOD COUNT 7.4 10*3/uL (4.8-10.8)
[2021-12-29 13:27] LABS: ALKALINE PHOSPHATASE 79 U/L (45-117); BUN 13 mg/dl (7-24); CHLORIDE 113 mmol/L (98-107); CREATININE 0.63 mg/dL (0.55-1.02); POTASSIUM 3.3 mmol/L (3.5-5.1); SGOT/AST 21 IU/L (3-35); SGPT/ALT 13 U/L (12-78); SODIUM 140 mmol/L (136-145); TOTAL PROTEIN 6.7 gm/dL (6.4-8.2)
[2021-12-29 17:15] VITALS: BP 152/61
[2021-12-29 20:00] VITALS: BP 133/40
[2021-12-30] VITALS: BP 125/56
[2021-12-30 06:00] VITALS: BP 120/64
[2021-12-30 06:15] LABS: BASO # 0.1 10*3/uL (0.0-0.1); BASO % 1.1 % (0.0-1.0); EOS # 0.2 10*3/uL (0.0-0.4); EOS % 2.6 % (1.0-4.0); LYMPH % 27.2 % (27.0-41.0); MEAN CORPUSCULAR HGB 31.8 pg (27.0-31.0); MEAN CORPUSCULAR HGB CONC 32.3 g/dl (33.0-37.0); MEAN PLATELET VOLUME 9.4 fl (9.6-12.3); MONO # 0.7 10*3/uL (0.1-1.0); MONO % 9.4 % (3.0-9.0); NEUT # 4.3 10*3/uL (2.3-7.9); NEUT % 59.6 % (47.0-73.0); RED BLOOD COUNT 3.55 10*6/uL (4.10-5.10); RED CELL DISTRI WIDTH 14.8 % (0-14.5); WHITE BLOOD COUNT 7.3 10*3/uL (4.8-10.8)
[2021-12-30 06:48] LABS: MEAN CELL VOLUME 98.6 fl (81.0-99.0); PLATELET COUNT AUTOMATED 263 10*3/uL (130-400)
[2021-12-30 06:55] LABS: ALKALINE PHOSPHATASE 84 U/L (45-117); BUN 18 mg/dl (7-24); CHLORIDE 107 mmol/L (98-107); CHOLESTEROL 142 mg/dL (<200); CREATININE 0.67 mg/dL (0.55-1.02); FREE T4 1.12 ng/dl (0.76-1.46); LDL CHOLESTEROL 51 mg/dL (9-159); POTASSIUM 3.7 mmol/L (3.5-5.1); SGOT/AST 25 IU/L (3-35); SGPT/ALT 12 U/L (12-78); SODIUM 143 mmol/L (136-145); TOTAL PROTEIN 7.1 gm/dL (6.4-8.2); TRIGLYCERIDES 97 mg/dl (<150)
[2021-12-30 08:00] VITALS: BP 126/71
[2021-12-30 12:00] VITALS: BP 122/72
[2021-12-30 16:00] VITALS: BP 115/50
[2021-12-30 16:02] LABS: VITAMIN D, 25-HYDROXY 27.7 ng/mL (30-100)
[2021-12-30 20:00] VITALS: BP 118/49
[2021-12-31] VITALS: BP 127/43
[2021-12-31 05:38] LABS: BUN 21 mg/dl (7-24); CHLORIDE 104 mmol/L (98-107); CREATININE 0.83 mg/dL (0.55-1.02); POTASSIUM 3.4 mmol/L (3.5-5.1); SODIUM 140 mmol/L (136-145)
[2021-12-31 06:23] LABS: BASO # 0.1 10*3/uL (0.0-0.1); BASO % 1.5 % (0.0-1.0); EOS # 0.4 10*3/uL (0.0-0.4); EOS % 4.1 % (1.0-4.0); HEMATOCRIT 36.8 % (37.0-47.0); LYMPH # 2.2 10*3/uL (1.3-4.4); LYMPH % 25.3 % (27.0-41.0); MEAN CELL VOLUME 100.8 fl (81.0-99.0); MEAN CORPUSCULAR HGB 32.6 pg (27.0-31.0); MEAN CORPUSCULAR HGB CONC 32.3 g/dl (33.0-37.0); MEAN PLATELET VOLUME 9.5 fl (9.6-12.3); MONO % 11.9 % (3.0-9.0); NEUT % 56.9 % (47.0-73.0); PLATELET COUNT AUTOMATED 261 10*3/uL (130-400); RED BLOOD COUNT 3.65 10*6/uL (4.10-5.10); RED CELL DISTRI WIDTH 15.3 % (0-14.5); WHITE BLOOD COUNT 8.7 10*3/uL (4.8-10.8)
[2021-12-31 08:00] VITALS: BP 122/52
[2021-12-31 12:00] VITALS: BP 117/87
[2021-12-31 16:00] VITALS: BP 125/65
[2021-12-31 20:00] VITALS: BP 138/56
[2022-01-01] VITALS: BP 130/42
[2022-01-01 06:05] LABS: BUN 23 mg/dl (7-24); CHLORIDE 105 mmol/L (98-107); CREATININE 0.61 mg/dL (0.55-1.02); SODIUM 139 mmol/L (136-145)
[2022-01-01 06:18] LABS: BASO # 0.1 10*3/uL (0.0-0.1); BASO % 1.6 % (0.0-1.0); EOS # 0.4 10*3/uL (0.0-0.4); EOS % 4.7 % (1.0-4.0); HEMATOCRIT 35.9 % (37.0-47.0); LYMPH # 1.9 10*3/uL (1.3-4.4); LYMPH % 24.9 % (27.0-41.0); MEAN CELL VOLUME 98.9 fl (81.0-99.0); MEAN CORPUSCULAR HGB 32.2 pg (27.0-31.0); MEAN CORPUSCULAR HGB CONC 32.6 g/dl (33.0-37.0); MEAN PLATELET VOLUME 9.6 fl (9.6-12.3); MONO % 13.3 % (3.0-9.0); NEUT # 4.1 10*3/uL (2.3-7.9); NEUT % 55.2 % (47.0-73.0); PLATELET COUNT AUTOMATED 245 10*3/uL (130-400); RED BLOOD COUNT 3.63 10*6/uL (4.10-5.10); RED CELL DISTRI WIDTH 15.2 % (0-14.5); WHITE BLOOD COUNT 7.4 10*3/uL (4.8-10.8)
[2022-01-01 08:00] VITALS: BP 121/49
[2022-01-01 12:00] VITALS: BP 125/49
[2022-01-01 16:00] VITALS: BP 129/59
[2022-01-01 20:00] VITALS: BP 135/55
[2022-01-02] VITALS: BP 121/47; BP 121/7
[2022-01-02 07:18] LABS: BUN 23 mg/dl (7-24); CHLORIDE 106 mmol/L (98-107); CREATININE 0.67 mg/dL (0.55-1.02); POTASSIUM 4.8 mmol/L (3.5-5.1); SODIUM 139 mmol/L (136-145)
[2022-01-02 08:00] VITALS: BP 118/41
[2022-01-02 12:00] VITALS: BP 128/45
[2022-01-02] MEDS ORDERED: LASIX40 MG PO (15:44)
[2022-01-02 16:00] VITALS: BP 113/48
== END 2022-01-02 17:05 | disposition home or self-care (01) | DRG 293 ==
LOC: ED 11:53 → 5E 14:58 → EDHOLD 14:58 → 5E 16:41
PROVIDERS: Internal Medicine; Registered Nurse; ADMIT Student in an Organized Health Care Education/Training Program; ATTEND Student in an Organized Health Care Education/Training Program
PROC: 4A02XM4 Measurement of Cardiac Total Activity, External Approach (ICD-10-PCS; principal; 2022-01-02)
PROC: 3E073KZ Introduction of Other Diagnostic Substance into Coronary Artery, Percutaneous Approach (ICD-10-PCS; 2022-01-02)
DX: I50.31 Acute diastolic (congestive) heart failure (principal); D53.9 Nutritional anemia, unspecified; R73.9 Hyperglycemia, unspecified; E87.6 Hypokalemia; E78.5 Hyperlipidemia, unspecified; J44.9 Chronic obstructive pulmonary disease, unspecified; I48.91 Unspecified atrial fibrillation; M81.0 Age-related osteoporosis without current pathological fracture; Z90.49 Acquired absence of other specified parts of digestive tract; Z91.041 Radiographic dye allergy status; Z90.710 Acquired absence of both cervix and uterus; Z93.1 Gastrostomy status; Z93.3 Colostomy status; Z83.6 Family history of other diseases of the respiratory system; Z80.8 Family history of malignant neoplasm of other organs or systems; Z87.11 Personal history of peptic ulcer disease

== ENCOUNTER → 2022-01-10 | Outpatient (CLI) | payer MEDICARE ==
[~2022-01-10] MED LIST changes: +LASIX40 MG PO
== END | disposition home or self-care (01) ==
LOC: RESCLI 03:23
PROVIDERS: ATTEND Student in an Organized Health Care Education/Training Program
DX: F32.9 Major depressive disorder, single episode, unspecified (principal); M81.0 Age-related osteoporosis without current pathological fracture; K21.9 Gastro-esophageal reflux disease without esophagitis; E55.9 Vitamin D deficiency, unspecified; J44.9 Chronic obstructive pulmonary disease, unspecified; I11.0 Hypertensive heart disease with heart failure; I48.91 Unspecified atrial fibrillation; E78.5 Hyperlipidemia, unspecified; I50.32 Chronic diastolic (congestive) heart failure; K59.00 Constipation, unspecified; M54.50 Low back pain, unspecified; Z79.899 Other long term (current) drug therapy; Z88.8 Allergy status to other drugs, medicaments and biological substances; Z90.710 Acquired absence of both cervix and uterus; Z90.722 Acquired absence of ovaries, bilateral; Z79.01 Long term (current) use of anticoagulants

== ENCOUNTER → 2022-02-21 | Outpatient (CLI) | payer MEDICARE | END | disposition home or self-care (01) | LOC: CT 01:40 | PROVIDERS: ATTEND Internal Medicine Critical Care Medicine | DX: J98.11 Atelectasis (principal); D14.31 Benign neoplasm of right bronchus and lung; D14.32 Benign neoplasm of left bronchus and lung; I25.10 Atherosclerotic heart disease of native coronary artery without angina pectoris; R91.8 Other nonspecific abnormal finding of lung field; J94.8 Other specified pleural conditions; J84.10 Pulmonary fibrosis, unspecified; Z85.820 Personal history of malignant melanoma of skin; J44.9 Chronic obstructive pulmonary disease, unspecified; J45.50 Severe persistent asthma, uncomplicated ==

== ENCOUNTER → 2022-03-02 | Outpatient (CLI) | payer MEDICARE ==
[2022-03-02 16:19] LABS: BASO # 0.1 10*3/uL (0.0-0.1); BASO % 1.1 % (0.0-1.0); EOS # 0.2 10*3/uL (0.0-0.4); EOS % 2.6 % (1.0-4.0); HEMATOCRIT 32.8 % (37.0-47.0); LYMPH # 2.4 10*3/uL (1.3-4.4); LYMPH % 25.9 % (27.0-41.0); MEAN CELL VOLUME 100.6 fl (81.0-99.0); MEAN CORPUSCULAR HGB 32.2 pg (27.0-31.0); MEAN PLATELET VOLUME 9.7 fl (9.6-12.3); MONO # 0.9 10*3/uL (0.1-1.0); MONO % 9.6 % (3.0-9.0); NEUT # 5.6 10*3/uL (2.3-7.9); NEUT % 60.6 % (47.0-73.0); PLATELET COUNT AUTOMATED 260 10*3/uL (130-400); RED BLOOD COUNT 3.26 10*6/uL (4.10-5.10); RED CELL DISTRI WIDTH 14.5 % (0-14.5); WHITE BLOOD COUNT 9.3 10*3/uL (4.8-10.8)
[2022-03-02 16:35] LABS: ALKALINE PHOSPHATASE 85 U/L (45-117); BUN 14 mg/dl (7-24); CHLORIDE 109 mmol/L (98-107); CREATININE 0.83 mg/dL (0.55-1.02); POTASSIUM 3.8 mmol/L (3.5-5.1); SGOT/AST 21 IU/L (3-35); SGPT/ALT 12 U/L (12-78); SODIUM 142 mmol/L (136-145); TOTAL PROTEIN 7.1 gm/dL (6.4-8.2)
== END | disposition home or self-care (01) ==
LOC: RESCLI 00:20
PROVIDERS: Internal Medicine; ATTEND Internal Medicine
DX: I50.32 Chronic diastolic (congestive) heart failure (principal); R53.83 Other fatigue; R60.0 Localized edema; R06.02 Shortness of breath; Z90.710 Acquired absence of both cervix and uterus; Z90.722 Acquired absence of ovaries, bilateral; Z88.8 Allergy status to other drugs, medicaments and biological substances; Z79.899 Other long term (current) drug therapy; Z79.01 Long term (current) use of anticoagulants

== ENCOUNTER 2022-03-05 10:01 | Emergency (ER) | payer MEDICARE ==
[~2022-03-05] VITALS: Ht 152.4 cm; Wt 68.9 kg
[2022-03-05 11:18] LABS: BASO # 0.1 10*3/uL (0.0-0.1); BASO % 1.5 % (0.0-1.0); EOS # 0.2 10*3/uL (0.0-0.4); EOS % 2.9 % (1.0-4.0); HEMATOCRIT 31.8 % (37.0-47.0); LYMPH % 25.8 % (27.0-41.0); MEAN CELL VOLUME 101.9 fl (81.0-99.0); MEAN CORPUSCULAR HGB 32.7 pg (27.0-31.0); MEAN CORPUSCULAR HGB CONC 32.1 g/dl (33.0-37.0); MEAN PLATELET VOLUME 9.6 fl (9.6-12.3); MONO # 0.7 10*3/uL (0.1-1.0); MONO % 8.8 % (3.0-9.0); NEUT # 4.7 10*3/uL (2.3-7.9); NEUT % 60.7 % (47.0-73.0); PLATELET COUNT AUTOMATED 253 10*3/uL (130-400); RED BLOOD COUNT 3.12 10*6/uL (4.10-5.10); RED CELL DISTRI WIDTH 14.6 % (0-14.5); WHITE BLOOD COUNT 7.8 10*3/uL (4.8-10.8)
[2022-03-05 11:33] LABS: ACT PARTIAL THROMBO TIME 28.8 SECONDS (20.0-32.1); INTERNATIONAL NORM RATIO 1.1 (2.0-3.5)
[2022-03-05 11:37] LABS: ALKALINE PHOSPHATASE 78 U/L (45-117); BUN 11 mg/dl (7-24); CHLORIDE 110 mmol/L (98-107); CREATININE 0.59 mg/dL (0.55-1.02); SGOT/AST 17 IU/L (3-35); SGPT/ALT 12 U/L (12-78); SODIUM 142 mmol/L (136-145); TOTAL PROTEIN 6.7 gm/dL (6.4-8.2)
[2022-03-05 12:07] LABS: BILIRUBIN Negative (Negative); BLOOD Negative (Negative); CLARITY Cloudy (Clear); COLOR Yellow (Yellow); GLUCOSE Negative (Negative); KETONE Negative (Negative); LEUKO ESTERASE 2+ (Negative); NITRITE Positive (Negative); SPECIFIC GRAVITY 1.015 (1.001-1.030)
[2022-03-05 12:28] LABS: BACTERIA 4+; WBC 21-30 wbc/hpf (0-5)
== END 2022-03-05 12:52 | disposition home or self-care (01) ==
LOC: ED 10:01
PROVIDERS: Emergency Medicine
DX: R60.0 Localized edema (principal); I87.2 Venous insufficiency (chronic) (peripheral); I48.91 Unspecified atrial fibrillation; J44.9 Chronic obstructive pulmonary disease, unspecified; M81.0 Age-related osteoporosis without current pathological fracture; I50.9 Heart failure, unspecified; J61 Pneumoconiosis due to asbestos and other mineral fibers; Z91.041 Radiographic dye allergy status; Z79.899 Other long term (current) drug therapy; Z79.82 Long term (current) use of aspirin; Z90.49 Acquired absence of other specified parts of digestive tract; Z90.710 Acquired absence of both cervix and uterus; Z98.890 Other specified postprocedural states

== ENCOUNTER → 2022-03-22 | Outpatient (CLI) | payer MEDICARE | END | disposition home or self-care (01) | LOC: RESCLI 02:04 | PROVIDERS: ATTEND Emergency Medicine | DX: R60.9 Edema, unspecified (principal); E78.5 Hyperlipidemia, unspecified; I48.91 Unspecified atrial fibrillation; J44.9 Chronic obstructive pulmonary disease, unspecified; I11.0 Hypertensive heart disease with heart failure; I50.32 Chronic diastolic (congestive) heart failure; K21.9 Gastro-esophageal reflux disease without esophagitis; E55.9 Vitamin D deficiency, unspecified; J30.1 Allergic rhinitis due to pollen; M81.0 Age-related osteoporosis without current pathological fracture; Z88.8 Allergy status to other drugs, medicaments and biological substances; Z79.899 Other long term (current) drug therapy; Z79.01 Long term (current) use of anticoagulants ==

== ENCOUNTER → 2022-04-11 | Outpatient (CLI) | payer MEDICARE | END | disposition home or self-care (01) | LOC: RESCLI 01:54 | PROVIDERS: ATTEND Internal Medicine | DX: R53.83 Other fatigue (principal); M81.0 Age-related osteoporosis without current pathological fracture; K21.9 Gastro-esophageal reflux disease without esophagitis; E55.9 Vitamin D deficiency, unspecified; J30.1 Allergic rhinitis due to pollen; K59.00 Constipation, unspecified; J44.9 Chronic obstructive pulmonary disease, unspecified; I48.91 Unspecified atrial fibrillation; E78.5 Hyperlipidemia, unspecified; G89.29 Other chronic pain; I50.32 Chronic diastolic (congestive) heart failure; Z90.710 Acquired absence of both cervix and uterus; Z98.890 Other specified postprocedural states; Z88.8 Allergy status to other drugs, medicaments and biological substances; Z79.01 Long term (current) use of anticoagulants; Z79.899 Other long term (current) drug therapy ==

== ENCOUNTER → 2022-04-14 | Outpatient (CLI) | payer MEDICARE ==
[2022-04-14 12:28] LABS: BUN 12 mg/dl (7-24); CHLORIDE 111 mmol/L (98-107); CREATININE 0.74 mg/dL (0.55-1.02); POTASSIUM 4.5 mmol/L (3.5-5.1); SODIUM 141 mmol/L (136-145)
== END ==
LOC: LAB 11:56
PROVIDERS: ATTEND Internal Medicine
DX: R53.83 Other fatigue (principal)

== ENCOUNTER 2022-05-09 09:54 | Inpatient (IN) | payer MEDICARE ==
[~2022-05-09] VITALS: Ht 152.4 cm; Wt 73.1 kg
[2022-05-09] VITALS (7 sets, daily range): BP systolic 129–156; BP diastolic 44–58
[2022-05-09 10:31] LABS: BASO # 0.1 10*3/uL (0.0-0.1); BASO % 0.8 % (0.0-1.0); EOS # 0.1 10*3/uL (0.0-0.4); HEMATOCRIT 28.7 % (37.0-47.0); LYMPH # 1.2 10*3/uL (1.3-4.4); LYMPH % 18.6 % (27.0-41.0); MEAN CELL VOLUME 95.7 fl (81.0-99.0); MEAN CORPUSCULAR HGB CONC 31.4 g/dl (33.0-37.0); MEAN PLATELET VOLUME 8.8 fl (9.6-12.3); MONO # 0.7 10*3/uL (0.1-1.0); MONO % 11.7 % (3.0-9.0); NEUT # 4.2 10*3/uL (2.3-7.9); NEUT % 67.7 % (47.0-73.0); PLATELET COUNT AUTOMATED 187 10*3/uL (130-400); WHITE BLOOD COUNT 6.2 10*3/uL (4.8-10.8)
[2022-05-09 10:42] LABS: INTERNATIONAL NORM RATIO 1.1 (2.0-3.5)
[2022-05-09 10:52] LABS: ALKALINE PHOSPHATASE 71 U/L (45-117); BUN 7 mg/dl (7-24); CHLORIDE 110 mmol/L (98-107); CPK 77 U/L (26-192); CREATININE 0.65 mg/dL (0.55-1.02); POTASSIUM 3.4 mmol/L (3.5-5.1); SGOT/AST 20 IU/L (3-35); SGPT/ALT 16 U/L (12-78); SODIUM 140 mmol/L (136-145); TOTAL PROTEIN 6.7 gm/dL (6.4-8.2)
[2022-05-10] VITALS: BP 103/42
[2022-05-10 01:23] LABS: BILIRUBIN Negative (Negative); BLOOD Negative (Negative); CLARITY Clear (Clear); COLOR Yellow (Yellow); GLUCOSE Negative (Negative); KETONE Negative (Negative); LEUKO ESTERASE 2+ (Negative); NITRITE Negative (Negative); UROBILINOGEN 0.2 E.U./dl (0.0-1.0)
[2022-05-10 01:59] LABS: BACTERIA 4+; WBC 21-30 wbc/hpf (0-5)
[2022-05-10 06:31] LABS: HEMATOCRIT 28.2 % (37.0-47.0); LYMPH # 0.9 10*3/uL (1.3-4.4); LYMPH % 19.7 % (27.0-41.0); MEAN CELL VOLUME 96.2 fl (81.0-99.0); MEAN CORPUSCULAR HGB 29.7 pg (27.0-31.0); MEAN CORPUSCULAR HGB CONC 30.9 g/dl (33.0-37.0); MEAN PLATELET VOLUME 9.5 fl (9.6-12.3); MONO # 0.1 10*3/uL (0.1-1.0); MONO % 2.1 % (3.0-9.0); NEUT # 3.6 10*3/uL (2.3-7.9); NEUT % 77.8 % (47.0-73.0); PLATELET COUNT AUTOMATED 186 10*3/uL (130-400); RED BLOOD COUNT 2.93 10*6/uL (4.10-5.10); RED CELL DISTRI WIDTH 14.9 % (0-14.5); WHITE BLOOD COUNT 4.7 10*3/uL (4.8-10.8)
[2022-05-10 06:46] LABS: ALKALINE PHOSPHATASE 59 U/L (45-117); BUN 11 mg/dl (7-24); CHLORIDE 114 mmol/L (98-107); CREATININE 0.49 mg/dL (0.55-1.02); FREE T4 1.18 ng/dl (0.76-1.46); POTASSIUM 4.1 mmol/L (3.5-5.1); SGOT/AST 17 IU/L (3-35); SGPT/ALT 14 U/L (12-78); SODIUM 144 mmol/L (136-145); TOTAL PROTEIN 6.1 gm/dL (6.4-8.2)
[2022-05-10 06:52] LABS: THYROID STIM HORMONE (HS) 0.233 uIU/ml (0.358-4.75)
[2022-05-10 08:00] VITALS: BP 157/52
[2022-05-10 12:00] VITALS: BP 102/50
[2022-05-10 16:00] VITALS: BP 134/69
[2022-05-10 20:00] VITALS: BP 147/82
[2022-05-11] VITALS: BP 100/61
[2022-05-11 06:14] LABS: BUN 16 mg/dl (7-24); CHLORIDE 111 mmol/L (98-107); CREATININE 0.53 mg/dL (0.55-1.02); POTASSIUM 3.7 mmol/L (3.5-5.1); SODIUM 143 mmol/L (136-145)
[2022-05-11 06:32] LABS: BASO % 0.1 % (0.0-1.0); HEMATOCRIT 28.5 % (37.0-47.0); LYMPH # 1.2 10*3/uL (1.3-4.4); LYMPH % 11.8 % (27.0-41.0); MEAN CORPUSCULAR HGB 29.7 pg (27.0-31.0); MEAN CORPUSCULAR HGB CONC 31.2 g/dl (33.0-37.0); MEAN PLATELET VOLUME 9.9 fl (9.6-12.3); MONO # 0.4 10*3/uL (0.1-1.0); MONO % 3.3 % (3.0-9.0); NEUT # 8.9 10*3/uL (2.3-7.9); NEUT % 84.4 % (47.0-73.0); PLATELET COUNT AUTOMATED 202 10*3/uL (130-400); WHITE BLOOD COUNT 10.5 10*3/uL (4.8-10.8)
[2022-05-11 08:00] VITALS: BP 125/71
[2022-05-11 12:00] VITALS: BP 110/40
[2022-05-11] MEDS ORDERED: OMNICEF300 MG PO (13:32)
[2022-05-11] MEDS ORDERED: BENZONATATE100 M1 PO (13:32)
[2022-05-11] MEDS ORDERED: DECADRON6 M1 PO (13:32)
[2022-05-11 16:00] VITALS: BP 132/40
[2022-05-11 20:00] VITALS: BP 140/47
[2022-05-12] VITALS: BP 143/61
[2022-05-12 08:00] VITALS: BP 142/61
== END 2022-05-12 19:10 | disposition home or self-care (01) | DRG 871 ==
LOC: ED 09:54 → EDHOLD 11:56 → 4E 11:56
PROVIDERS: Emergency Medicine; Internal Medicine; ADMIT Internal Medicine; ATTEND Internal Medicine
PROC: XW033E5 Introduction of Remdesivir Anti-infective into Peripheral Vein, Percutaneous Approach, New Technology Group 5 (ICD-10-PCS; principal; 2022-05-09)
DX: A41.9 Sepsis, unspecified organism (principal); U07.1 COVID-19; E44.0 Moderate protein-calorie malnutrition; I48.11 Longstanding persistent atrial fibrillation; I50.32 Chronic diastolic (congestive) heart failure; J61 Pneumoconiosis due to asbestos and other mineral fibers; M81.0 Age-related osteoporosis without current pathological fracture; E87.8 Other disorders of electrolyte and fluid balance, not elsewhere classified; Z66 Do not resuscitate; J44.9 Chronic obstructive pulmonary disease, unspecified; D64.9 Anemia, unspecified; E87.6 Hypokalemia; R73.9 Hyperglycemia, unspecified; Z91.041 Radiographic dye allergy status; Z90.710 Acquired absence of both cervix and uterus; Z93.1 Gastrostomy status; Z90.49 Acquired absence of other specified parts of digestive tract; Z93.3 Colostomy status; Z83.6 Family history of other diseases of the respiratory system; Z80.8 Family history of malignant neoplasm of other organs or systems; Z51.5 Encounter for palliative care; Z68.31 Body mass index [BMI] 31.0-31.9, adult

== ENCOUNTER → 2022-05-16 | Outpatient (CLI) | payer MEDICARE ==
[~2022-05-16] MED LIST changes: +BENZONATATE100 M1 PO; +DECADRON6 M1 PO; +OMNICEF300 MG PO
== END | disposition home or self-care (01) ==
LOC: RESCLI 13:16
PROVIDERS: ATTEND Internal Medicine
DX: U09.9 Post COVID-19 condition, unspecified (principal); I50.32 Chronic diastolic (congestive) heart failure; J30.1 Allergic rhinitis due to pollen; E55.9 Vitamin D deficiency, unspecified; M81.0 Age-related osteoporosis without current pathological fracture; I48.91 Unspecified atrial fibrillation; E78.5 Hyperlipidemia, unspecified; G89.29 Other chronic pain; K21.9 Gastro-esophageal reflux disease without esophagitis; J44.9 Chronic obstructive pulmonary disease, unspecified; K59.00 Constipation, unspecified; Z90.710 Acquired absence of both cervix and uterus; Z90.722 Acquired absence of ovaries, bilateral; Z98.890 Other specified postprocedural states; Z82.49 Family history of ischemic heart disease and other diseases of the circulatory system; Z79.01 Long term (current) use of anticoagulants; Z88.8 Allergy status to other drugs, medicaments and biological substances; Z79.899 Other long term (current) drug therapy

== ENCOUNTER → 2022-10-12 | Outpatient (CLI) | payer MEDICARE | END | disposition home or self-care (01) | LOC: RESCLI 00:36 | PROVIDERS: ATTEND Internal Medicine | DX: J20.9 Acute bronchitis, unspecified (principal); R05.1 Acute cough; K21.9 Gastro-esophageal reflux disease without esophagitis; E55.9 Vitamin D deficiency, unspecified; J44.9 Chronic obstructive pulmonary disease, unspecified; G89.29 Other chronic pain; K59.00 Constipation, unspecified; I50.32 Chronic diastolic (congestive) heart failure; I48.91 Unspecified atrial fibrillation; Z98.890 Other specified postprocedural states; Z88.8 Allergy status to other drugs, medicaments and biological substances; Z82.49 Family history of ischemic heart disease and other diseases of the circulatory system; Z90.710 Acquired absence of both cervix and uterus; Z79.82 Long term (current) use of aspirin; Z79.899 Other long term (current) drug therapy ==

== ENCOUNTER → 2022-11-16 | Day surgery (SDC) | payer MEDICARE ==
[~2022-11-16] VITALS: Ht 152.4 cm; Wt 68.0 kg
[~2022-11-16] MED LIST changes: +ASPIRIN81 M1 PO
[2022-11-16 07:10] VITALS: BP 132/38
[2022-11-16 08:02] VITALS: BP 108/45
[2022-11-16 08:17] VITALS: BP 113/48
[2022-11-16 08:26] VITALS: BP 110/57
== END | disposition home or self-care (01) ==
LOC: SDC 11-13 08:45
PROVIDERS: ATTEND Surgery
DX: R13.10 Dysphagia, unspecified (principal); K29.50 Unspecified chronic gastritis without bleeding; K21.00 Gastro-esophageal reflux disease with esophagitis, without bleeding; K25.9 Gastric ulcer, unspecified as acute or chronic, without hemorrhage or perforation; J44.9 Chronic obstructive pulmonary disease, unspecified; I50.9 Heart failure, unspecified; I48.91 Unspecified atrial fibrillation; Z90.710 Acquired absence of both cervix and uterus; Z98.890 Other specified postprocedural states; F32.A Depression, unspecified; Z85.828 Personal history of other malignant neoplasm of skin

== ENCOUNTER → 2022-11-27 | Outpatient (CLI) | payer MEDICARE | END | disposition home or self-care (01) | LOC: RESCLI 10:33 | PROVIDERS: ATTEND Internal Medicine | DX: I50.32 Chronic diastolic (congestive) heart failure (principal); F32.A Depression, unspecified; Z86.16 Personal history of COVID-19; Z98.890 Other specified postprocedural states; Z82.49 Family history of ischemic heart disease and other diseases of the circulatory system; Z88.8 Allergy status to other drugs, medicaments and biological substances; Z79.899 Other long term (current) drug therapy ==

== ENCOUNTER → 2022-12-06 | Outpatient (CLI) | payer MEDICARE ==
[2022-12-06 12:15] LABS: BASO # 0.1 10*3/uL (0.0-0.1); BASO % 1.4 % (0.0-1.0); EOS # 0.2 10*3/uL (0.0-0.4); EOS % 3.2 % (1.0-4.0); HEMATOCRIT 30.4 % (37.0-47.0); LYMPH % 30.9 % (27.0-41.0); MEAN CELL VOLUME 93.8 fl (81.0-99.0); MEAN CORPUSCULAR HGB 29.6 pg (27.0-31.0); MEAN CORPUSCULAR HGB CONC 31.6 g/dl (33.0-37.0); MEAN PLATELET VOLUME 8.9 fl (9.6-12.3); MONO # 0.7 10*3/uL (0.1-1.0); MONO % 10.3 % (3.0-9.0); NEUT # 3.4 10*3/uL (2.3-7.9); NEUT % 54.2 % (47.0-73.0); PLATELET COUNT AUTOMATED 272 10*3/uL (130-400); RED BLOOD COUNT 3.24 10*6/uL (4.10-5.10); RED CELL DISTRI WIDTH 14.5 % (0-14.5); WHITE BLOOD COUNT 6.3 10*3/uL (4.8-10.8)
[2022-12-06 12:59] LABS: ALKALINE PHOSPHATASE 67 U/L (46-116); BUN 5 mg/dl (9-23); CHLORIDE 105 mmol/L (98-107); POTASSIUM 3.2 mmol/L (3.4-5.1); TOTAL PROTEIN 6.7 gm/dL (6.0-8.0)
[2022-12-06 13:05] LABS: SGPT/ALT < 7 U/L (10-49)
== END | disposition home or self-care (01) ==
LOC: RESCLI 02:54
PROVIDERS: Internal Medicine; ATTEND Internal Medicine
DX: I49.9 Cardiac arrhythmia, unspecified (principal); I50.9 Heart failure, unspecified; G25.81 Restless legs syndrome; D50.9 Iron deficiency anemia, unspecified; R05.1 Acute cough; M81.0 Age-related osteoporosis without current pathological fracture; J30.1 Allergic rhinitis due to pollen; I50.32 Chronic diastolic (congestive) heart failure; E55.9 Vitamin D deficiency, unspecified; I48.91 Unspecified atrial fibrillation; K21.00 Gastro-esophageal reflux disease with esophagitis, without bleeding; Z88.8 Allergy status to other drugs, medicaments and biological substances; Z98.890 Other specified postprocedural states; Z82.49 Family history of ischemic heart disease and other diseases of the circulatory system; Z79.899 Other long term (current) drug therapy

== ENCOUNTER → 2022-12-09 | Outpatient (CLI) | payer MEDICARE ==
[2022-12-09 10:01] LABS: ALKALINE PHOSPHATASE 63 U/L (46-116); BUN 5 mg/dl (9-23); CHLORIDE 108 mmol/L (98-107); POTASSIUM 3.6 mmol/L (3.4-5.1); TOTAL PROTEIN 6.5 gm/dL (6.0-8.0)
[2022-12-09 10:07] LABS: SGPT/ALT < 7 U/L (10-49)
== END | disposition home or self-care (01) ==
LOC: LAB 02:44
PROVIDERS: Internal Medicine; ATTEND Internal Medicine
DX: I50.9 Heart failure, unspecified (principal)

== ENCOUNTER → 2022-12-26 | Outpatient (CLI) | payer MEDICARE ==
[2022-12-26 17:34] LABS: BASO # 0.1 10*3/uL (0.0-0.1); BASO % 1.4 % (0.0-1.0); EOS # 0.2 10*3/uL (0.0-0.4); EOS % 2.8 % (1.0-4.0); HEMATOCRIT 31.4 % (37.0-47.0); LYMPH % 33.8 % (27.0-41.0); MEAN CELL VOLUME 92.6 fl (81.0-99.0); MEAN CORPUSCULAR HGB 29.2 pg (27.0-31.0); MEAN CORPUSCULAR HGB CONC 31.5 g/dl (33.0-37.0); MONO # 0.6 10*3/uL (0.1-1.0); MONO % 6.9 % (3.0-9.0); NEUT # 4.8 10*3/uL (2.3-7.9); NEUT % 54.9 % (47.0-73.0); PLATELET COUNT AUTOMATED 322 10*3/uL (130-400); RED BLOOD COUNT 3.39 10*6/uL (4.10-5.10); RED CELL DISTRI WIDTH 14.4 % (0-14.5); WHITE BLOOD COUNT 8.7 10*3/uL (4.8-10.8)
[2022-12-26 17:57] LABS: BUN 6 mg/dl (9-23); CHLORIDE 107 mmol/L (98-107); POTASSIUM 3.8 mmol/L (3.4-5.1)
== END ==
LOC: RESCLI 01:24
PROVIDERS: Internal Medicine; ATTEND Internal Medicine
DX: I11.0 Hypertensive heart disease with heart failure (principal); I50.32 Chronic diastolic (congestive) heart failure; D50.9 Iron deficiency anemia, unspecified; J44.9 Chronic obstructive pulmonary disease, unspecified; E78.5 Hyperlipidemia, unspecified; G89.29 Other chronic pain; K21.00 Gastro-esophageal reflux disease with esophagitis, without bleeding; I49.9 Cardiac arrhythmia, unspecified; M81.0 Age-related osteoporosis without current pathological fracture; Z88.8 Allergy status to other drugs, medicaments and biological substances; Z82.49 Family history of ischemic heart disease and other diseases of the circulatory system; Z98.890 Other specified postprocedural states; Z79.899 Other long term (current) drug therapy

== ENCOUNTER → 2023-01-02 | Outpatient (CLI) | payer MEDICARE | LOC: CARD 00:41 | PROVIDERS: ATTEND Student in an Organized Health Care Education/Training Program | DX: I34.81 Nonrheumatic mitral (valve) annulus calcification (principal); I50.9 Heart failure, unspecified ==

== ENCOUNTER → 2023-03-08 | Outpatient (CLI) | payer MEDICARE ==
[2023-03-08 11:34] LABS: BASO # 0.1 10*3/uL (0.0-0.1); BASO % 0.8 % (0.0-1.0); EOS % 0.3 % (1.0-4.0); HEMATOCRIT 30.4 % (37.0-47.0); LYMPH # 2.1 10*3/uL (1.3-4.4); LYMPH % 19.4 % (27.0-41.0); MEAN CELL VOLUME 91.3 fl (81.0-99.0); MEAN CORPUSCULAR HGB 28.2 pg (27.0-31.0); MEAN CORPUSCULAR HGB CONC 30.9 g/dl (33.0-37.0); MEAN PLATELET VOLUME 8.9 fl (9.6-12.3); MONO # 0.7 10*3/uL (0.1-1.0); NEUT # 7.9 10*3/uL (2.3-7.9); PLATELET COUNT AUTOMATED 282 10*3/uL (130-400); RED BLOOD COUNT 3.33 10*6/uL (4.10-5.10); RED CELL DISTRI WIDTH 17.3 % (0-14.5); WHITE BLOOD COUNT 10.9 10*3/uL (4.8-10.8)
[2023-03-08 12:27] LABS: ALKALINE PHOSPHATASE 66 U/L (46-116); BUN 20 mg/dl (9-23); CHLORIDE 109 mmol/L (98-107); CHOLESTEROL 195 mg/dL (<200); FREE T4 0.92 ng/dl (0.89-1.76); LDL CHOLESTEROL 122 mg/dL (9-159); POTASSIUM 3.6 mmol/L (3.4-5.1); TRIGLYCERIDES 90 mg/dl (<150)
[2023-03-08 12:36] LABS: SGPT/ALT < 7 U/L (10-49)
== END | disposition home or self-care (01) ==
LOC: LAB 01:06 → CT 01:06
PROVIDERS: Internal Medicine; ATTEND Internal Medicine Critical Care Medicine
DX: I49.1 Atrial premature depolarization (principal); I50.9 Heart failure, unspecified; M81.0 Age-related osteoporosis without current pathological fracture; J92.0 Pleural plaque with presence of asbestos; J92.9 Pleural plaque without asbestos

== ENCOUNTER 2023-04-26 08:46 | Emergency (ER) | payer MEDICARE ==
[~2023-04-26] VITALS: Wt 68.0 kg
[2023-04-26 09:40] LABS: BASO # 0.1 10*3/uL (0.0-0.1); BASO % 0.7 % (0.0-1.0); EOS # 0.2 10*3/uL (0.0-0.4); EOS % 2.4 % (1.0-4.0); HEMATOCRIT 31.8 % (37.0-47.0); LYMPH # 2.3 10*3/uL (1.3-4.4); LYMPH % 23.2 % (27.0-41.0); MEAN CELL VOLUME 90.3 fl (81.0-99.0); MEAN CORPUSCULAR HGB 28.7 pg (27.0-31.0); MEAN CORPUSCULAR HGB CONC 31.8 g/dl (33.0-37.0); MEAN PLATELET VOLUME 8.6 fl (9.6-12.3); MONO # 0.8 10*3/uL (0.1-1.0); MONO % 8.2 % (3.0-9.0); NEUT # 6.6 10*3/uL (2.3-7.9); NEUT % 65.3 % (47.0-73.0); PLATELET COUNT AUTOMATED 283 10*3/uL (130-400); RED BLOOD COUNT 3.52 10*6/uL (4.10-5.10); RED CELL DISTRI WIDTH 16.2 % (0-14.5)
[2023-04-26 09:53] LABS: ACT PARTIAL THROMBO TIME 24.8 SECONDS (20.0-32.1)
[2023-04-26 10:10] LABS: ALKALINE PHOSPHATASE 62 U/L (46-116); BUN 18 mg/dl (9-23); CHLORIDE 107 mmol/L (98-107); LIPASE 35 U/L (12-53); POTASSIUM 3.4 mmol/L (3.4-5.1); SGPT/ALT 13 U/L (10-49); TOTAL PROTEIN 6.7 gm/dL (6.0-8.0)
[2023-04-26] MEDS ORDERED: HYDROCODONE-AC1 EAC1 PO (12:11)
== END 2023-04-26 10:55 | disposition home or self-care (01) ==
LOC: ED 08:46
PROVIDERS: Emergency Medicine
DX: S20.219A Contusion of unspecified front wall of thorax, initial encounter (principal); S09.90XA Unspecified injury of head, initial encounter; S69.91XA Unspecified injury of right wrist, hand and finger(s), initial encounter; J44.9 Chronic obstructive pulmonary disease, unspecified; I50.9 Heart failure, unspecified; K21.9 Gastro-esophageal reflux disease without esophagitis; D64.9 Anemia, unspecified; I48.91 Unspecified atrial fibrillation; Z91.041 Radiographic dye allergy status; Z90.49 Acquired absence of other specified parts of digestive tract; Z90.710 Acquired absence of both cervix and uterus; Z98.890 Other specified postprocedural states; W01.198A Fall on same level from slipping, tripping and stumbling with subsequent striking against other object, initial encounter; Y93.89 Activity, other specified; Y92.89 Other specified places as the place of occurrence of the external cause; Y99.8 Other external cause status

== ENCOUNTER → 2023-04-30 | Outpatient (CLI) | payer MEDICARE ==
[~2023-04-30] MED LIST changes: +HYDROCODONE-AC1 EAC1 PO
== END | disposition home or self-care (01) ==
LOC: RAD 11:42
PROVIDERS: ATTEND Internal Medicine
DX: J44.9 Chronic obstructive pulmonary disease, unspecified (principal); R07.81 Pleurodynia

== ENCOUNTER → 2023-05-23 | Outpatient (CLI) | payer MEDICARE ==
[~2023-05-23] MED LIST changes: +ALDACTONE25 MG PO; +KLOR-CON M2020 ME1 PO
== END | disposition home or self-care (01) ==
LOC: CARD 01:05
PROVIDERS: ATTEND Internal Medicine
DX: R07.89 Other chest pain (principal)

== ENCOUNTER 2023-07-10 10:56 | Emergency (ER) | payer MEDICARE ==
[~2023-07-10] VITALS: Ht 152.4 cm; Wt 63.5 kg
[2023-07-10] MEDS ORDERED: AMOX-CLAV 875-1 EACH PO (12:58)
== END 2023-07-10 12:59 | disposition home or self-care (01) ==
LOC: ED 10:56
DX: J02.9 Acute pharyngitis, unspecified (principal); I48.91 Unspecified atrial fibrillation; J44.9 Chronic obstructive pulmonary disease, unspecified; I50.9 Heart failure, unspecified; M81.0 Age-related osteoporosis without current pathological fracture; E46 Unspecified protein-calorie malnutrition; Z91.041 Radiographic dye allergy status; Z79.899 Other long term (current) drug therapy; Z79.82 Long term (current) use of aspirin; Z90.711 Acquired absence of uterus with remaining cervical stump; Z90.49 Acquired absence of other specified parts of digestive tract; Z98.890 Other specified postprocedural states

== ENCOUNTER 2024-03-04 19:24 | Inpatient (IN) | payer MEDICARE ==
[~2024-03-04] VITALS: Ht 152.4 cm; Wt 62.1 kg
[2024-03-04 09:39] VITALS: BP 125/47
[~2024-03-04 19:24] MED LIST changes: +AMOX-CLAV 875-1 EACH PO
[2024-03-04 19:26] VITALS: BP 142/55
[2024-03-04] MEDS ORDERED: ACETAMINOPHEN 325 MG TAB PO ONE (19:35)
[2024-03-04 20:05] LABS: BUN 8 mg/dl (9-23); CHLORIDE 108 mmol/L (98-107); POTASSIUM 3.9 mmol/L (3.4-5.1)
[2024-03-04 20:07] LABS: BASO # 0.1 10*3/uL (0.0-0.1); BASO % 0.8 % (0.0-1.0); EOS # 0.1 10*3/uL (0.0-0.4); EOS % 1.1 % (1.0-4.0); HEMATOCRIT 30.4 % (37.0-47.0); LYMPH % 9.9 % (27.0-41.0); MEAN CELL VOLUME 95.9 fl (81.0-99.0); MEAN CORPUSCULAR HGB 30.3 pg (27.0-31.0); MEAN CORPUSCULAR HGB CONC 31.6 g/dl (33.0-37.0); MEAN PLATELET VOLUME 8.7 fl (9.6-12.3); MONO # 0.7 10*3/uL (0.1-1.0); MONO % 7.1 % (3.0-9.0); NEUT % 80.5 % (47.0-73.0); PLATELET COUNT AUTOMATED 223 10*3/uL (130-400); RED BLOOD COUNT 3.17 10*6/uL (4.10-5.10); RED CELL DISTRI WIDTH 14.2 % (0-14.5)
[2024-03-04] MEDS ORDERED: BISACODYL 5 MG TAB PO PRN (22:25)
[2024-03-04] MEDS ORDERED: BISACODYL 10 MG SUPP R PRN (22:25)
[2024-03-04] MEDS ORDERED: ACETAMINOPHEN 650 MG SUPP R PRN (22:25)
[2024-03-04] MEDS ORDERED: Magnesium Hydroxide 30 ML UDC PO PRN (22:25)
[2024-03-04] MEDS ORDERED: TEMAZEPAM 15 MG CAP PO PRN (22:25)
[2024-03-04] MEDS ORDERED: ACETAMINOPHEN 325 MG TAB PO PRN (22:25)
[2024-03-04] MEDS ORDERED: Benzocaine/Menthol 1 LOZ LOZENGE PO PRN (22:35)
[2024-03-04] MEDS ORDERED: SODIUM CHLORIDE 0.9% 1,000 ML IV SCH (22:35)
[2024-03-04] MEDS ORDERED: REMDESIVIR 200 MG in SODIUM CHLORIDE 0.9% 210 ML IV ONE (23:00)
[2024-03-05] VITALS (7 sets, daily range): BP systolic 108–149; BP diastolic 37–47
[2024-03-05 06:42] LABS: BASO # 0.1 10*3/uL (0.0-0.1); BASO % 0.8 % (0.0-1.0); EOS # 0.1 10*3/uL (0.0-0.4); EOS % 0.7 % (1.0-4.0); HEMATOCRIT 30.4 % (37.0-47.0); LYMPH % 13.4 % (27.0-41.0); MEAN CELL VOLUME 96.5 fl (81.0-99.0); MEAN CORPUSCULAR HGB 31.1 pg (27.0-31.0); MEAN CORPUSCULAR HGB CONC 32.2 g/dl (33.0-37.0); MEAN PLATELET VOLUME 9.4 fl (9.6-12.3); MONO # 0.7 10*3/uL (0.1-1.0); MONO % 9.1 % (3.0-9.0); NEUT # 5.7 10*3/uL (2.3-7.9); NEUT % 75.6 % (47.0-73.0); PLATELET COUNT AUTOMATED 187 10*3/uL (130-400); RED BLOOD COUNT 3.15 10*6/uL (4.10-5.10); RED CELL DISTRI WIDTH 14.6 % (0-14.5); WHITE BLOOD COUNT 7.5 10*3/uL (4.8-10.8)
[2024-03-05 07:23] LABS: ALKALINE PHOSPHATASE 75 U/L (46-116); BUN < 5 mg/dl (9-23); CHLORIDE 111 mmol/L (98-107); CHOLESTEROL 172 mg/dL (<200); LDL CHOLESTEROL 103 mg/dL (9-159); POTASSIUM 3.3 mmol/L (3.4-5.1); SGPT/ALT < 7 U/L (5-49); TRIGLYCERIDES 91 mg/dl (<150)
[2024-03-05] MEDS ORDERED: NEURONTIN100 MG PO (09:00)
[2024-03-05] MEDS ORDERED: ZITHROMAX250 MG PO (09:00)
[2024-03-05] MEDS ORDERED: LIDODERM1 EACH T (09:01)
[2024-03-05] MEDS ORDERED: Enoxaparin Sodium 40 MG/0.4 ML SYR SC SCH (10:00)
[2024-03-05] MEDS ORDERED: DEXAMETHASONE 4 MG TAB PO SCH (10:00)
[2024-03-05] MEDS ORDERED: REMDESIVIR 100 MG in SODIUM CHLORIDE 0.9% 230 ML IV SCH ×2 (22:00→23:00)
[2024-03-06] VITALS: BP 140/41
[2024-03-06 00:28] LABS: BILIRUBIN Negative (Negative); BLOOD Negative (Negative); CLARITY Cloudy (Clear); COLOR Yellow (Yellow); GLUCOSE Negative (Negative); KETONE Trace (Negative); LEUKO ESTERASE 2+ (Negative); NITRITE Positive (Negative); PH 5.5 (4.5-8.0); SPECIFIC GRAVITY 1.025 (1.001-1.030)
[2024-03-06 01:02] LABS: BACTERIA 4+; EPITHELIAL CELLS 31-40; WBC 31-40 wbc/hpf (0-5)
[2024-03-06 05:36] LABS: ALKALINE PHOSPHATASE 68 U/L (46-116); BUN 10 mg/dl (9-23); CHLORIDE 109 mmol/L (98-107); POTASSIUM 3.6 mmol/L (3.4-5.1); SGPT/ALT 12 U/L (5-49); TOTAL PROTEIN 5.8 gm/dL (6.0-8.0)
[2024-03-06 06:21] LABS: BASO % 0.2 % (0.0-1.0); LYMPH # 1.2 10*3/uL (1.3-4.4); LYMPH % 14.1 % (27.0-41.0); MEAN CELL VOLUME 97.6 fl (81.0-99.0); MEAN CORPUSCULAR HGB 30.6 pg (27.0-31.0); MEAN CORPUSCULAR HGB CONC 31.4 g/dl (33.0-37.0); MEAN PLATELET VOLUME 9.6 fl (9.6-12.3); MONO # 0.3 10*3/uL (0.1-1.0); MONO % 4.2 % (3.0-9.0); NEUT # 6.6 10*3/uL (2.3-7.9); PLATELET COUNT AUTOMATED 213 10*3/uL (130-400); RED BLOOD COUNT 2.97 10*6/uL (4.10-5.10); RED CELL DISTRI WIDTH 14.5 % (0-14.5); WHITE BLOOD COUNT 8.1 10*3/uL (4.8-10.8)
[2024-03-06 08:00] VITALS: BP 134/46
[2024-03-06] MEDS ORDERED: IBUPROFEN 600 MG TAB PO PRN (11:55)
[2024-03-06 12:00] VITALS: BP 132/48
[2024-03-06] MEDS ORDERED: Ceftriaxone Sodium 1 GM in SYRINGE INFUSION 10 ML IV SCH (14:00)
[2024-03-06 16:00] VITALS: BP 143/52
[2024-03-06 20:00] VITALS: BP 138/54
[2024-03-07] VITALS: BP 152/48
[2024-03-07 08:00] VITALS: BP 141/39
[2024-03-07 12:00] VITALS: BP 139/45
[2024-03-07 16:00] VITALS: BP 140/55
[2024-03-07 20:00] VITALS: BP 141/53
[2024-03-08] VITALS: BP 148/51
[2024-03-08 08:00] VITALS: BP 139/59
[2024-03-08] MEDS ORDERED: Meropenem 1 GM in SODIUM CHLORIDE 0.9% 100 ML IV SCH (10:00)
[2024-03-08 12:00] VITALS: BP 141/64
[2024-03-08 16:00] VITALS: BP 145/60
[2024-03-08 20:00] VITALS: BP 141/46
[2024-03-08] MEDS ORDERED: ERTAPENEM1 GM IV (22:21)
[2024-03-09] VITALS: BP 124/52
[2024-03-09 06:12] LABS: BASO # 0.1 10*3/uL (0.0-0.1); BASO % 0.8 % (0.0-1.0); EOS # 0.2 10*3/uL (0.0-0.4); EOS % 2.3 % (1.0-4.0); HEMATOCRIT 30.7 % (37.0-47.0); LYMPH # 2.3 10*3/uL (1.3-4.4); LYMPH % 31.3 % (27.0-41.0); MEAN CELL VOLUME 94.8 fl (81.0-99.0); MEAN CORPUSCULAR HGB 29.9 pg (27.0-31.0); MEAN CORPUSCULAR HGB CONC 31.6 g/dl (33.0-37.0); MEAN PLATELET VOLUME 9.3 fl (9.6-12.3); MONO # 0.6 10*3/uL (0.1-1.0); MONO % 8.6 % (3.0-9.0); NEUT # 4.1 10*3/uL (2.3-7.9); NEUT % 56.7 % (47.0-73.0); PLATELET COUNT AUTOMATED 227 10*3/uL (130-400); RED BLOOD COUNT 3.24 10*6/uL (4.10-5.10); RED CELL DISTRI WIDTH 14.6 % (0-14.5); WHITE BLOOD COUNT 7.3 10*3/uL (4.8-10.8)
[2024-03-09 08:00] VITALS: BP 106/47
[2024-03-09 12:00] VITALS: BP 142/56; BP 99/58
[2024-03-09 16:11] VITALS: BP 146/50
[2024-03-09] MEDS ORDERED: Pantoprazole Sodium 20 MG TAB PO SCH (18:00)
[2024-03-09 20:00] VITALS: BP 136/62
[2024-03-10] VITALS: BP 131/57
[2024-03-10 08:00] VITALS: BP 114/89
[2024-03-10 12:00] VITALS: BP 120/90
[2024-03-10 16:00] VITALS: BP 143/59
[2024-03-10 20:00] VITALS: BP 152/63
[2024-03-11] VITALS: BP 160/64
[2024-03-11 03:04] VITALS: BP 152/60
[2024-03-11 06:02] LABS: BASO # 0.1 10*3/uL (0.0-0.1); BASO % 0.7 % (0.0-1.0); EOS # 0.4 10*3/uL (0.0-0.4); EOS % 5.4 % (1.0-4.0); HEMATOCRIT 29.8 % (37.0-47.0); LYMPH # 1.8 10*3/uL (1.3-4.4); LYMPH % 24.8 % (27.0-41.0); MEAN CELL VOLUME 93.7 fl (81.0-99.0); MEAN CORPUSCULAR HGB 30.5 pg (27.0-31.0); MEAN CORPUSCULAR HGB CONC 32.6 g/dl (33.0-37.0); MEAN PLATELET VOLUME 9.3 fl (9.6-12.3); MONO # 0.7 10*3/uL (0.1-1.0); MONO % 10.2 % (3.0-9.0); NEUT # 4.2 10*3/uL (2.3-7.9); NEUT % 58.5 % (47.0-73.0); PLATELET COUNT AUTOMATED 262 10*3/uL (130-400); RED BLOOD COUNT 3.18 10*6/uL (4.10-5.10); RED CELL DISTRI WIDTH 14.4 % (0-14.5); WHITE BLOOD COUNT 7.2 10*3/uL (4.8-10.8)
[2024-03-11 08:00] VITALS: BP 152/60
[2024-03-11 12:00] VITALS: BP 153/73
[2024-03-11 16:00] VITALS: BP 150/63
== END 2024-03-11 18:23 | disposition home or self-care (01) | DRG 871 ==
LOC: ED 19:24 → ICCU 21:22 → EDHOLD 21:22 → ICCU 03-05 08:43 → 4E 03-07 17:17
PROVIDERS: Internal Medicine Infectious Disease; Nurse Practitioner Family; Student in an Organized Health Care Education/Training Program; ADMIT Internal Medicine; ATTEND Internal Medicine
PROC: XW033E5 Introduction of Remdesivir Anti-infective into Peripheral Vein, Percutaneous Approach, New Technology Group 5 (ICD-10-PCS; principal; 2024-03-05)
PROC: 05HB33Z Insertion of Infusion Device into Right Basilic Vein, Percutaneous Approach (ICD-10-PCS; 2024-03-11)
PROC: B54MZZA Ultrasonography of Right Upper Extremity Veins, Guidance (ICD-10-PCS; 2024-03-11)
DX: A41.9 Sepsis, unspecified organism (principal); J12.9 Viral pneumonia, unspecified; J96.01 Acute respiratory failure with hypoxia; U07.1 COVID-19; N39.0 Urinary tract infection, site not specified; J44.0 Chronic obstructive pulmonary disease with (acute) lower respiratory infection; Z16.12 Extended spectrum beta lactamase (ESBL) resistance; I50.32 Chronic diastolic (congestive) heart failure; R65.20 Severe sepsis without septic shock; I48.91 Unspecified atrial fibrillation; I08.3 Combined rheumatic disorders of mitral, aortic and tricuspid valves; D64.9 Anemia, unspecified; J61 Pneumoconiosis due to asbestos and other mineral fibers; K27.9 Peptic ulcer, site unspecified, unspecified as acute or chronic, without hemorrhage or perforation; K59.00 Constipation, unspecified; G47.00 Insomnia, unspecified; B96.1 Klebsiella pneumoniae [K. pneumoniae] as the cause of diseases classified elsewhere; M81.0 Age-related osteoporosis without current pathological fracture; Z90.49 Acquired absence of other specified parts of digestive tract; Z79.899 Other long term (current) drug therapy; Z79.01 Long term (current) use of anticoagulants; Z79.2 Long term (current) use of antibiotics; Z88.8 Allergy status to other drugs, medicaments and biological substances; Z90.710 Acquired absence of both cervix and uterus; Z93.1 Gastrostomy status; Z80.8 Family history of malignant neoplasm of other organs or systems; Z83.6 Family history of other diseases of the respiratory system; Z85.828 Personal history of other malignant neoplasm of skin; Z87.440 Personal history of urinary (tract) infections; Z82.5 Family history of asthma and other chronic lower respiratory diseases; Z91.041 Radiographic dye allergy status

== ENCOUNTER → 2024-04-22 | Outpatient (CLI) | payer MEDICARE ==
[~2024-04-22] MED LIST changes: +ERTAPENEM1 GM IV; +LIDODERM1 EACH T; +NEURONTIN100 MG PO; +ZITHROMAX250 MG PO
== END | disposition home or self-care (01) ==
LOC: LAB 11:59
PROVIDERS: ATTEND Internal Medicine
DX: E61.1 Iron deficiency (principal)

== ENCOUNTER → 2024-04-25 | Outpatient (CLI) | payer MEDICARE | END | disposition home or self-care (01) | LOC: LAB 09:21 | PROVIDERS: ATTEND Internal Medicine | DX: E61.1 Iron deficiency (principal) ==

== ENCOUNTER → 2024-12-11 | Outpatient (CLI) | payer MEDICARE ==
[~2024-12-11] MED LIST changes: +CEFUROXIME AXE500 MG PO; +DOXYCYCLINE MO100 MG PO
[2024-12-11 09:46] LABS: BASO # 0.1 10*3/uL (0.0-0.1); BASO % 1.5 % (0.0-1.0); EOS # 0.4 10*3/uL (0.0-0.4); EOS % 4.9 % (1.0-4.0); HEMATOCRIT 29.6 % (37.0-47.0); MEAN CELL VOLUME 86.5 fl (81.0-99.0); MEAN CORPUSCULAR HGB 27.2 pg (27.0-31.0); MEAN CORPUSCULAR HGB CONC 31.4 g/dl (33.0-37.0); MEAN PLATELET VOLUME 8.9 fl (9.6-12.3); MONO # 0.5 10*3/uL (0.1-1.0); MONO % 6.5 % (3.0-9.0); NEUT # 3.8 10*3/uL (2.3-7.9); PLATELET COUNT AUTOMATED 325 10*3/uL (130-400); RED BLOOD COUNT 3.42 10*6/uL (4.10-5.10); RED CELL DISTRI WIDTH 15.6 % (0-14.5); WHITE BLOOD COUNT 7.4 10*3/uL (4.8-10.8)
== END | disposition home or self-care (01) ==
LOC: LAB 09:10
PROVIDERS: ATTEND Internal Medicine
DX: D64.9 Anemia, unspecified (principal)